=== PATIENT | male | born 1970 | race Asian ===

== ENCOUNTER 2020-04-04 08:00 | Outpatient (REF) | payer OTHER, SELFPAY ==
[2020-04-04 13:48] LABS: Calculated LDL 121 mg/dL (<100); Cholesterol 187 mg/dL (<200); Glucose 103 mg/dL (74-106); HDL Cholesterol 50 mg/dL (40-60); Triglyceride 80 mg/dL (<150)
[2020-04-08 10:10] LABS: Hepatitis C Ab w Rflx HCV PCR Negative (Negative)
== END 2020-04-04 08:20 ==
LOC: NCHCN 08:00
PROVIDERS: PCP Family Medicine; Visit Provider Family Medicine
DX: Z13.220 Encounter for screening for lipoid disorders (principal); Z13.1 Encounter for screening for diabetes mellitus; Z11.59 Encounter for screening for other viral diseases
CPT/HCPCS: 80061; 82947; 86803

== ENCOUNTER 2020-06-08 19:46 | Emergency (ER) | payer OTHER, SELFPAY ==
[2020-06-08 19:53] VITALS: BP 168/86; PULSE 87; RESP 16; TEMP 36.5; O2SAT 99
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
[2020-06-08] MEDS: Ondansetron O.D.T. 4 MG TABEF, 3 TABS/BTL PO (20:20)
[2020-06-08] MEDS: Acetaminophen 500 MG TAB 1000 MG PO (20:20)
== END 2020-06-08 20:30 | disposition home or self-care (01) ==
PROVIDERS: Emergency Provider Emergency Medicine; PCP Family Medicine
DX: S09.8XXA Other specified injuries of head, initial encounter (principal); V89.2XXA Person injured in unspecified motor-vehicle accident, traffic, initial encounter; R11.0 Nausea
CPT/HCPCS: 99283

== ENCOUNTER 2021-06-04 02:25 | Outpatient (CLI) | payer OTHER, SELFPAY ==
[2021-06-04 11:33] LABS: Source Nasal/Nares
[2021-06-04 14:04] LABS: COVID-19 PCR Negative (Negative)
== END 2021-06-04 02:26 | disposition home or self-care (01) ==
PROVIDERS: PCP Family Medicine; Visit Provider Surgery
DX: Z01.818 Encounter for other preprocedural examination (principal); Z20.822 Contact with and (suspected) exposure to COVID-19
CPT/HCPCS: 87635

== ENCOUNTER 2021-06-06 09:55 | Day surgery (SDC) | payer OTHER, SELFPAY ==
--- NOTE | 2021-06-05 11:51 | W.COLOREPORT ---
Colonoscopy Report Date of procedure: 06/06/21 Pre-op diagnosis general: CRC screen Post-op diagnosis procedure note: other (A. polyp) Surgeon: Brittany Chinchilla Anesthesia Type: General:No Airway Estimated blood loss (mL): 1 Complications: None Disposition: same day Prep: Miralax/Dulcolax Retraction Time: 11 Procedure Description: After informed consent was obtained the patient was taken to the procedure room and placed in a left decubitous position. Monitors were applied and a time out was done. The patients name, date of , procedure, allergies to medications and metal in their body was reviewed. The patient was then sedated. Once sedated and comfortable a rectal exam was done. External exam was normal. Internal exam revealed a normal sphincter tone and no palpable masses. The scope was then introduced and retrofelexed. No internal hemorrhoids were identified. The scope was then advanced to the cecum withoutdifficulty. The TI and appendiceal orifice were identified. The prep was be BPS?3 in all segments for a total score of 9. The scope was then slowly retracted over 11minutes back into the rectum. He has a flat 0.75 cm polyp at 80 cm. This is removed with multiple bites with cold biopsy forcep. All specimen is retrieved and no bleeding is noted. There is no diverticula or AVMs noted. The mucosa appears pink and healthy with normal vasculature. Was removed and the patient was woken up and taken back to Same day surgery in stable condition. The patient tolerated the procedure well and there were no immediate complications. Follow up: The patient should follow up in 7 years, path pd, unless they develop changes in bowel habits or other new gastrointestinal complaints.
--- NOTE | 2021-06-05 11:52 | PDOC.DSDIS_ITS ---
Discharge Plan Disposition Patient Disposition: HOME Condition: Good Discharge Details Reason For Visit: colon scope Attending Provider: Brittany Chinchilla Primary Care Provider: Josh Hernandez Home Meds and New Rx's Prescriptions: Continued fluoxetine 40 mg capsule 40 mg PO DAILY 0RF All Day Allergy (cetirizine) 10 mg capsule 10 mg PO DAILY PRN0RF zolpidem 10 mg tablet See Rx Instructions PO QHS 0RF Rx Instructions: 1/2 to 1 tab QHS PO every day at bedtime; melatonin-lemon balm leaf extr 10-1 mg tablet 1 tab PO HS 0RF Discontinued bisacodyl [Dulcolax (bisacodyl)] 5 mg tablet,delayed release (DR/EC) 5 mg PO ONCE Qty: 4 0RF Rx Instructions: take per colonoscopy instructions polyethylene glycol 3350 17 gram/dose powder 238 g PO ONCE Qty: 238 0RF Rx Instructions: take per colonoscopy instructions Discharge Instructions Additional Instructions: DSU Colonoscopy Post- Op Instructions Instructions for Everyone who is given Anesthesia: For your safety, please do the following for the next twenty-four (24) hours: *Do Not operate a motor vehicle (car, truck, motorcycle, etc.) *Do Not drink alcoholic beverages or use any recreational drugs for the first 24 hours or while taking pain medications. The medications in your body may have a reaction that can be dangerous. *Do Not make any important decisions or sign any important papers. Findings: x1 polyp Follow up:repeat 5-7yrs time- path pd. My office will send a letter in 2 to 3 weeks time detailing as to what type of polyp it is and when we want you to repeat the colonoscopy. 1. No lifting over 20 pounds or strenuous activity for the first 24 hours after your procedure. After 24 hours there are no restrictions on your activity but you may feel fatigued for a few days. 2. After you arrive home you may have a light meal and return to your normal diet as you can tolerate it without feeling sick to your stomach. 3. You may have a bloated, gaseous feeling in your belly (abdomen) after a colonoscopy. Passing gas and belching will help. Walking or lying down on your left side with your knees flexed may relieve the discomfort. Call the office at [phone] (Office) or [phone] (Hospital) right away i f you notice any of the following: a.Vomiting of blood or ?coffee ground stools?. b.Rectal bleeding 1Tbsp, blood clots or continuous bleeding. c.Severe belly (abdominal) pain. d.A hard distended belly (abdomen) and an inability to pass gas. 4. Please don?t expect to have a normal BM (bowel movement) for 2-3 days after your procedure. 5. If there are questions regarding the findings of your procedure, please contact your doctor 6. If you are unable to contact your doctor with a problem, contact the hospital at [phone]. 7. Continue all your regular medications unless directed otherwise. I understand the above instructions and have no questions. Signature of Patient or Adult Escort Name of Responsible Adult Escort Signature of Nurse Date/Time Stand Alone Forms: Anesthesia Discharge Inst., Carlos Alberto Miner ([facility]) Activity:: see above Diet:: see above Discharge Orders Discharge Orders: Discharge Order (Routine); Ordered 06/05/21 Ordered By: Brittany Chinchilla
[2021-06-06 10:26] VITALS: BP 107/93; PULSE 86; RESP 16; TEMP 36.6; O2SAT 97
[2021-06-06] MEDS: Lactated Ringers 1,000 ML 80 ML IV (10:51)
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
[2021-06-06 11:46] VITALS: BMI 22.0
--- NOTE | 2021-06-06 12:30 | BOWEL_PTH ---
PATIENT: King Dickerson LOC: [facility] U#:[id number] AGE/SX: 50/M ROOM: RE06/06/[address]: Brittany Chinchilla : 1970 BED: DIS: 06/06/2021 SPEC #: [id number] RECD: 06/06/21 17:13 STATUS: LUBA REQ #: [id number] ROBBIN: 06/06/21 12:[address]: Brittany Chinchilla DEPT: Surgical Specimen RECD BY: Rachel Linton ENTERED: 06/06/21 17:13 SP TYPE: Bowel OTHR DR: Josh Hernandez Tissues: 1 - BIOPSY BOWEL Procedures: GROSS AND MICRO LEVEL 4 Comments: [id number]
[2021-06-06 12:50] VITALS: BP 97/60; PULSE 61; RESP 16; TEMP 36.3; O2SAT 99
--- NOTE | 2021-06-06 12:51 | W.ANESPOSTOP ---
Postoperative Evaluation Date, Time and Location Date Performed: 06/06/21 Time Performed: 12:51 Patient Location: Day Surgery Unit Vital Signs Most Recent Imported Vital Signs: Most Recent Vital Signs Temp Pulse Resp BP Pulse Ox 36.6 C 86 16 107/93 H 97 06/06/21 10:26 06/06/21 10:06/06/21 10:06/06/21 10:06/06/21 10:26 Most Recent Manually Entered Vital Signs: Adult Blood Pressure: 97/60 Heart Rate: 64 Respirations: 12 Oxygen Saturation (%): 97 Temperature (C): 36.3 C Pain Score (0-10 Scale): 0 Pain Score Most Recent Pain Score: Most Recent Pain Score Pain Level 0 06/06/21 10:26 Assessment Mental Status: Awake (Alert & Oriented to Patient Baseline) Airway and Respiratory Function: Patent airway with normal (patient baseline) respiratory exam Cardiovascular Function: Hemodynamically Stable Hydration Status: Adequately Hydrated Nausea & Vomiting: No Nausea or Vomiting Pain: Pt. Denies Any Pain Peripheral Nerve Block: Patient did not receive a nerve block
[2021-06-06 12:52] VITALS: BP 97/60; PULSE 64; RESP 12; TEMPC 36.3; O2SAT 97
[2021-06-06 13:17] VITALS: BP 111/74; PULSE 67; RESP 16; TEMP 36.6; O2SAT 100
== END 2021-06-06 13:55 | disposition home or self-care (01) ==
LOC: SUR 09:56
PROVIDERS: PCP Family Medicine; Visit Provider Surgery
PROC: 0DJD8ZZ Inspection of Lower Intestinal Tract, Via Natural or Artificial Opening Endoscopic (ICD-10-PCS; CPT 45378; principal; 2021-06-06 11:00)
DX: Z12.11 Encounter for screening for malignant neoplasm of colon (principal); K63.5 Polyp of colon; R73.01 Impaired fasting glucose
CPT/HCPCS: 45380; 88305; J2001

== ENCOUNTER 2022-09-15 16:06 | Outpatient (REF) | payer OTHER, SELFPAY ==
[2022-09-15 19:47] LABS: Abs Immature Grans 0.02 10^3/uL (0.0-0.06); Absolute Basophil Count 0.02 10^3/uL (0.0-0.2); Absolute Eosinophil Count 0.27 10^3/uL (0.0-0.7); Absolute Lymphocyte Count 1.78 10^3/uL (1.2-3.4); Absolute Monocyte Count 0.37 10^3/uL (0.1-0.8); Absolute Neutrophil Count 4.02 10^3/uL (1.2-6.7); Basophils % 0.3; Eosinophils % 4.2; HCT 46.3 % (40.0-50.0); HGB 15.4 g/dL (13.5-17.5); Immature Grans % 0.3; Lymphocytes % 27.5; MCH 30.2 pg (27.0-33.0); MCHC 33.3 % (32.0-36.0); MCV 91 fL (80-95); MPV 11.3 fL (8.0-11.0); Monocytes % 5.7; Platelet Count 191 10^3/uL (130-400); RDW 12.3 % (11.8-14.1); RDW-SD 41.1 fL; WBC 6.48 10^3/uL (4.4-10.8)
[2022-09-15 19:49] LABS: ESR 1 mm/hr (0-20)
[2022-09-15 20:17] LABS: ALT 26 U/L (16-63); AST 13 U/L (15-37); Albumin 3.9 g/dL (3.4-5.0); Alkaline Phosphatase 89 U/L (46-116); Anion Gap 9.8 mmol/L (3-11); BUN 16 mg/dL (7-18); Bilirubin, Total 0.3 mg/dL (0.2-1.0); CO2 26.2 mmol/L (21.0-32.0); CREATININE 0.9 mg/dL (0.70-1.30); Calcium 8.7 mg/dL (8.5-10.1); Chloride 106 mmol/L (98-107); Glucose 104 mg/dL (74-106); Potassium 4.2 mmol/L (3.5-5.1); Sodium 142 mmol/L (136-145); Total Protein 6.9 g/dL (6.4-8.2)
[2022-09-17 10:39] LABS: HIV-1/2 Ag & Ab Screen Negative (Negative)
== END 2022-09-15 16:07 | disposition home or self-care (01) ==
LOC: NCHCN 16:06
PROVIDERS: PCP Family Medicine; Visit Provider Family Medicine
DX: C81.90 Hodgkin lymphoma, unspecified, unspecified site (principal); Z00.00 Encounter for general adult medical examination without abnormal findings; R61 Generalized hyperhidrosis
CPT/HCPCS: 80053; 85652; 87389; 85025

== ENCOUNTER → 2022-11-12 01:43 | Outpatient (CLI) | payer OTHER, SELFPAY ==
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
== END ==
PROVIDERS: PCP Family Medicine; Visit Provider Family Medicine
DX: C81.90 Hodgkin lymphoma, unspecified, unspecified site (principal); R61 Generalized hyperhidrosis
CPT/HCPCS: 71046

== ENCOUNTER 2024-01-24 10:57 | Outpatient (REF) | payer OTHER, SELFPAY ==
--- OUTSIDE RECORDS SUMMARY | 2024-01-24 11:01 | XMS_ITS | Clinical Summary ---
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 Depression 10/08/2011 Social History Tobacco Use Types Packs/Day Years Used Date Smoking Tobacco: Every Day Cigarettes Smokeless Tobacco: Never Alcohol Use Standard Drinks/Week Comments Yes 1.7 (1 standard drink = 0.6 oz p ure alcohol) Sex and Gender Information Value Date Recorded Sex Assigned at Not on file Gender Identity Not on file Sexual Orientation Not on file Last Filed Vital Signs Vital Sign Reading Time Taken Comments Blood Pressure 160/78 12/14/2015 1:09 AM EDT Pulse 68 12/14/2015 1:09 AM EDT Temperature 36.7 ??C (98.1 ??F) 12/14/2015 1:09 AM ED T Respiratory Rate 18 12/14/2015 1:09 AM EDT Oxygen Saturation 99% 12/14/2015 1:09 AM EDT Inhaled Oxygen Concentration - - Weight 61.2 kg (135 lb) 12/13/2015 8:56 PM EDT Height 175.9 cm (5' 9.25) 09/29/2012 1:51 PM ED T Body Mass Index 19.79 09/29/2012 1:51 PM EDT Plan of Treatment Health Maintenance Due Date Last Done Comments CT Colonography 1970 Colonoscopy 1970 Colorectal Cancer Screening 1970 FIT DNA 1970 FIT 1970 Sigmoidoscopy (10 year) with FIT yearly 1970 Sigmoidoscopy 1970 Hepatitis C Screening 1988 Lipid Screening 1988 Hepatitis B vaccine (0-59 yrs) (1) 1989 Tetanus/Diphtheria/Pertussis Vaccines (1 - Tdap) 11/12 Zoster vaccine (1 of 2) 2020 Covid-19 Vaccine (1 - season) 2023 Influenza (Flu) vaccine (1 o f 1 - Influenza standard series) 11/21/2023 HIV screen Completed 10/16/2011 Procedures Procedure Name Priority Date/Time Associated Diagnosis Comments HIV SCREEN, 4TH GENERATION [place] [place] Routine 10/16/2011 11:08 AM EDT Hodgkin disease from Last 3 Months or Most Recently Relevant to Health Maintenance Results * HIV (10/16/2011 11:08 AM EDT) HIV 1/2 Ab Negative PHILIPPE CAICEDO Blood specimen (specimen) 10/16/2011 11:08 AM EDT 10/16/2011 11:10 AM EDT Narrative Resulting Agency Comment Spec In Lab Stevie Domingo MD CHEMISTRY ORDERABLES [facility] from Last 3 Months or Most Recently Relevant to Health Maintenance Care Teams Lithographer Apprentice Relationship Specialty Start Date End Date Unknown None PCP - General 03/22/15
--- OUTSIDE RECORDS SUMMARY | 2024-01-24 11:01 | XMS_ITS ---
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 Past Plans No past plan information found. Radiation Treatments * No radiation treatments are documented for this patient in [facility]. Treatments may have been administered in another system. Lifetime Dose Tracking * Chemical Lifetime Dose Automatic Entry Manual Entr y doxorubicin 200.58 mg/m2 (352 mg) 200.58 mg/m2 (352 m g) 0 mg/m2 (0 mg) bleomycin 126 Units 126 Units 0 Units
--- OUTSIDE RECORDS SUMMARY | 2024-01-24 11:01 | XMS_ITS | Encounter Summary ---
Author Organization [facility] [place] [address] Care Team Providers Care Cigarette Tipper Name Role Phone Unknown Primary Care Provider Unavailabl e Reason for Referral * Psychiatric (Routine) - Closed Specialty Diagnoses / Procedures Referred By Contac t Referred To Contact Psychiatry Diagnoses Depression, unspecified depression type Isabella Recio MD [facility] EMER[place]ENC[place] [address] [facility] [place] [address] Referral ID Status Reason Start Date Expiration Date V isits Requested Visits Authorized [id number] Closed Consult, Test & Treat 12/14/2015 12/13/2016 1 1 Reason for Visit * Reason Comments Psychiatric Evaluation Encounter Details Date Type Department Care Team (Late st Contact Info) Description 12/13/2015 9:24 PM EDT - 12/14/2015 1:10 AM EDT [place] [address] Isabella Recio MD [facility] EMER[place]ENC[place] [address] Depression, unspecified depression type Discharge Disposition: Home Social History Tobacco Use Types Packs/Day Years Used Date Smoking Tobacco: Every Day Cigarettes Smokeless Tobacco: Never Alcohol Use Standard Drinks/Week Comments Yes 1.7 (1 standard drink = 0.6 oz p ure alcohol) Sex and Gender Information Value Date Recorded Sex Assigned at Not on file Gender Identity Not on file Sexual Orientation Not on file documented as of this encounter Last Filed Vital Signs Vital Sign Reading Time Taken Comments Blood Pressure 160/78 12/14/2015 1:09 AM EDT Pulse 68 12/14/2015 1:09 AM EDT Temperature 36.7 ??C (98.1 ??F) 12/14/2015 1:09 AM ED T Respiratory Rate 18 12/14/2015 1:09 AM EDT Oxygen Saturation 99% 12/14/2015 1:09 AM EDT Inhaled Oxygen Concentration - - Weight 61.2 kg (135 lb) 12/13/2015 8:56 PM EDT Height - - Body Mass Index 19.79 09/29/2012 1:51 PM EDT documented in this encounter Discharge Instructions * Discharge Instructions* Iman Welch MD - 12/14/2015 1:00 AM EDT PSYCHIATRIC PATIENT DISCHARGE INSTRUCTIONS Call your doctor, your local mental health center, or your local emergency room if you develop worsening symptoms of depression, anxiety, thoughts of harming yourself, thoughts of harming others, or any other decline in your overall condition. For Psychiatric/Counseling Services: [facility] Emergency Services: [facility] [phone] [facility] Emergency Services: [phone] [facility] Central Access Services: [phone] [facility] Main Line: [phone] [email or web address] documented in this encounter ED Notes * Isabella Recio MD - 12/14/2015 1:10 AM EDT Chief Complaint Patient presents with ??? Psychiatric Evaluation HPI King Dickerson is a 45 y.o. male with PPHx of depression and medical history of Hodgkin's Lymphomapresenting for increasing depression over the past 4-5 months. He describes feelings of depression,feeling overwhelmed, anxiety, and cannot describe the last time he felt happy. Patient endorses worsening symptoms of poor sleep, loss of interest, decreased appetite, and infrequent (maybe monthly) thoughts about suicide with no plan or intent. Patient denies any physical symptoms at this time.He is currently in remission from his Lymphoma No Known Allergies Review of Systems A complete 12 point review systems was completed and was negative except as documented in the HPI Physical Exam Constitutional: He is oriented to person, place, and time. He appears well- developed and well-nourished. No distress. HENT: Head: Normocephalic and atraumatic. Eyes: EOM are normal. Pupils are equal, round, and reactive to light. Neck: Normal range of motion. No thyromegaly present. Cardiovascular: Normal rate, regular rhythm and normal heart sounds. Pulmonary/Chest: Effort normal. No respiratory distress. Abdominal: Soft. There is no tenderness. Musculoskeletal: Normal range of motion. He exhibits no edema. Neurological: He is alert and oriented to person, place, and time. Skin: Skin is warm and dry. No rash noted. He is not diaphoretic. Psychiatric: Affect Tearful Procedures MDM ED Course: No evidence of acute medical illness was found on today's clinical exam.Patient was referred to psychiatry For feelings of suicidality. Isabella Recio MD 01/07/16 1527 documented in this encounter Miscellaneous Notes * ED Triage - Marky Yousif RN - 12/13/2015 9:01 PM EDT I am not mentally strong right now. +Depression. Suicide has crossed my mind. No plan. Denies HI. Here with brother. Tearful. Contracts for safety while here. documented in this encounter Plan of Treatment Scheduled Referrals Name Type Priority Associated Diagnoses Orde r Schedule Referral to Psychiatry Outpatient Referral Routine Depression, unspecified depression type Ordered: 12/14/2015 documented as of this encounter Procedures Procedure Name Priority Date/Time Associated Diagnosis Comments URINE HOLD STAT 12/13/2015 11:30 PM EDT URINE HOLD STAT 12/13/2015 11:30 PM EDT HEMOGRAM STAT 12/13/2015 11:30 PM EDT DIFFERENTIAL, AUTOMATED STAT 12/13/2015 11:30 PM EDT BLUE TUBE HOLD STAT 12/13/2015 11:30 PM EDT RAPID DRUG SCREEN W/O CONFIRMATION, URINE STAT 12/13/2015 11:30 PM EDT CBC (WITH DIFF) STAT 12/13/2015 11:30 PM EDT TSH STAT 12/13/2015 11:30 PM EDT ETHANOL LEVEL STAT 12/13/2015 11:30 PM EDT ACETAMINOPHEN LEVEL STAT 12/13/2015 1 1:30 PM EDT SALICYLATE STAT 12/13/2015 11:30 PM EDT HEPATIC FUNCTION PANEL STAT 6 11:30 PM EDT BASIC METABOLIC PANEL STAT 12/13/2015 11:30 PM EDT documented in this encounter Results * Blue Tube HOLD (12/13/2015 11:30 PM EDT) [facility] Blue Hold Sample in lab. [facility] Blood specimen (specimen) Venous Draw / Unknown 12/13/2015 11:30 PM EDT 12/13/2015 11:40 PM EDT Isabella Recio MD HEMATOLOGY ORDERABLE S [facility] [place] [address] * Differential, Automated (12/13/2015 11:30 PM EDT) [facility] Neutrophil % 57.7 % [facility] Neutrophil Absolute 4.86 1.70 - 6.10 x10(3)/[facility] LAB[facility] Lymph % 31.1 % [facility] Lymphocytes Abs 2.6 0.9 - 3.2 x10(3)/[facility] Monocyte % 6.0 % [facility] Monocyte Abs 0.5 0.3 - 0.9 x10(3)/[facility] Eos % 4.6 % [facility] Eosinophils Abs 0.4 0.0 - 0.4 x10(3)/[facility] Basophil % 0.4 % [facility] Baso Absolute 0.0 0.0 - 0.1 x10(3)/[facility] LABOR[facility]ORY Immature Gran % 0.20 % [facility] Comment: Immature granulocytes(IG's)percentage and absolute count will include metamyelocytes, myelocytes, and promyelocytes. Blood smears from CBCs yielding IG's will be scanned manually for concordance. If this scan disagrees with the automated IG or if promyelocytes are noted, a manual differential will be performed. Immature Gran Absolute 0.02 0.00 - 0.04 x10(3)/[facility] Blood specimen (specimen) 12/13/2015 11:30 PM EDT 12/13/2015 11:39 PM EDT Narrative Resulting Agency Comment Spec In Lab Isabella Recio MD HEMATOLOGY ORDERABLE S Performing Organization Address City/State/[facility] Co de Phone Number [facility] [place] [address] * (ABNORMAL) Hemogram (12/13/2015 11:30 PM EDT) White Blood Cell 8.4 4.0 - 9.5 x10(3)/[facility] LABORATORY Red Blood Cell 5.36 4.58 - 5.54 x10(6)/[facility] Hemoglobin 16.0 13.7 - 16.5 gm/dL [facility] Hematocrit 48.7(H) 40.5 - 48.5 % [facility] Mean Cell Volume 90.9 82.9 - 93.1 fL [facility] Mean Cell Hemoglobin 29.9 27.5 - 32.1 pg [facility] Mean Cell Hemoglobin Concentration 32.9 32.0 - 35.7 gm/dL [facility] Platelet 207 145 - 357 x10(3)/mc L [facility] RDW Standard Deviation 41.0 36.0 - 45.0 fL [facility] RDW coefficient of variation 12.4 11.4 - 13.8 % [facility] Mean Platelet Volume 11.0 7.6 - 12.9 fL [facility] NRBC% auto 0.0 % [facility] NRBC Absolute 0.000 0.000 - 0.000 x10(3)/mc L [facility] Blood specimen (specimen) 12/13/2015 11:30 PM EDT 12/13/2015 11:39 PM EDT Narrative Resulting Agency Comment Spec In Lab Isabella Recio MD HEMATOLOGY ORDERABLE S [facility] [place] [address] * Urine Hold (12/13/2015 11:30 PM EDT) Hold, Urine Sample in lab. [facility] Urine specimen (specimen) Urine / Unknown 12/13/2015 11:30 PM EDT 12/13/2015 11:38 PM EDT Isabella Recio MD URINE ORDERABLES Performing Organization Address City/[facility]/ZIP Co de Phone Number [facility] [place] [address] * Urine Hold (12/13/2015 11:30 PM EDT) Hold, Urine Sample in lab. [facility] Urine specimen (specimen) Urine / Unknown 12/13/2015 11:30 PM EDT 12/13/2015 11:37 PM EDT Isabella Recio MD URINE ORDERABLES Performing Organization Address [facility] Co de Phone Number [facility] [place] [address] * (ABNORMAL) Acetaminophen level (12/13/2015 11:30 PM EDT) Acetamin Lvl <5(L) 10 - 30 mg/L [facility] Comment: Result rechecked./llu Levels >150 mg/L at 4 hours post ingestion or >75 mg/L at 8 hours post ingestion are often an indication for N-Acetylcysteine. Blood specimen (specimen) 12/13/2015 11:30 PM EDT 12/13/2015 11:39 PM EDT Narrative Resulting Agency Comment Spec In Lab Isabella Recio MD CHEMISTRY ORDERABLES Performing Organization Address [facility] Co de Phone Number [facility] [place] [address] * Salicylate (12/13/2015 11:30 PM EDT) Salicylate <20 mg/L [facility] Comment: Result rechecked./llu Therapeutic Range: ??< 200 mg/L Arthritic Therapy: ??150-300 mg/L Toxic: ?> 350 mg/L ??Concentrations > 500 mg/L may be an indication for alkalinization of urine. Concentrations > 800 mg/L are often an indication for hemodialysis. Blood specimen (specimen) 12/13/2015 11:30 PM EDT 12/13/2015 11:39 PM EDT Narrative Resulting Agency Comment Spec In Lab Isabella Recio MD CHEMISTRY ORDERABLES Performing Organization Address [facility] Co de Phone Number [facility] [place] [address] * Rapid Drug Screen, Urine (12/13/2015 11:30 PM EDT) [facility] Marijuana Metabolites Screen None Detected None Detected [facility] Comment: The marijuana metabolites screen detects the THC Metabolite (67-ewc-0-carboxy-? 9 -THC) at concentrations >50 ng/mL. Qualitative Drug screens are reported as ? None Detected? or ? Presumptive Positive? as the results are not routinely confirmed by highly-specific methods. As with any screen occasional false positive results from cross-reacting substances can occur. Not for Medico-Legal Purposes. Phencyclidine Screen, Urine None Detected None Detected [facility] Comment: The phencyclidine screen detects phencyclidine at concentrations >25 ng/mL. Qualitative Drug screens are reported as ? None Detected? or ? Presumptive Positive? as the results are not routinely confirmed by highly-specific methods. As with any screen occasional false positive results from cross-reacting substances can occur. Not for Medico-Legal Purposes. [facility] Cocaine Metabolites Screen None Detected None Detected [facility] Comment: The cocaine metabolites screen detects benzoylecgonine (Cocaine Metabolite) at concentrations >150 ng/mL. Qualitative Drug screens are reported as ? None Detected? or ? Presumptive Positive? as the results are not routinely confirmed by highly-specific methods. As with any screen occasional false positive results from cross-reacting substances can occur. Not for Medico-Legal Purposes. Methamphetamines Screen, Urine None Detected None Detected [facility] Comment: The methamphetamine screen detects d-methamphetamine at concentrations >500 ng/mL. Qualitative Drug screens are reported as ? None Detected? or ? Presumptive Positive? as the results are not routinely confirmed by highly-specific methods. As with any screen occasional false positive results from cross-reacting substances can occur. Not for Medico-Legal Purposes. [facility] Opiates Screen None Detected None Detected [facility] Comment: The opiates screen detects opiates at a concentration >100 ng/mL and oxymorphone >250 ng/mL. Qualitative Drug screens are reported as ? None Detected? or ? Presumptive Positive? as the results are not routinely confirmed by highly-specific methods. As with any screen occasional false positive results from cross-reacting substances can occur. Not for Medico-Legal Purposes. [facility] Amphetamines Screen None Detected None Detected [facility] Comment: The amphetamine screen detects d-amphetamine at concentrations >500 ng/mL. Qualitative Drug screens are reported as ? None Detected? or ? Presumptive Positive? as the results are not routinely confirmed by highly-specific methods. As with any screen occasional false positive results from cross-reacting substances can occur. Not for Medico-Legal Purposes. [facility] Benzodiazepines Screen None Detected None Detected [facility] Comment: The benzodiazepines screen detects benzodiazepines at concentrations >150 ng/mL. Not all benzodiazepines cross-react equally with antibody used in this screen. Due to the low dosage of clonazepam, false negatives may be obtained due to low concentration of clonazepam metabolites. Qualitative Drug screens are reported as ? None Detected? or ? Presumptive Positive? as the results are not routinely confirmed by highly-specific methods. As with any screen occasional false positive results from cross-reacting substances can occur. Not for Medico-Legal Purposes. [facility] Tricyclics Screen None Detected None Detected [facility] Comment: The tricyclics screen detects tricyclic antidepressants at concentrations >300 ng/mL. Not all tricyclics cross-react equally with the antibody used in this screen. Qualitative Drug screens are reported as ? None Detected? or ? Presumptive Positive? as the results are not routinely confirmed by highly-specific methods. As with any screen occasional false positive results from cross-reacting substances can occur. Not for Medico-Legal Purposes. [facility] Methadone Screen None Detected None Detected [facility] Comment: The methadone screen detects methadone at concentrations >200 ng/mL. Qualitative Drug screens are reported as ? None Detected? or ? Presumptive Positive? as the results are not routinely confirmed by highly-specific methods. As with any screen occasional false positive results from cross-reacting substances can occur. Not for Medico-Legal Purposes. [facility] Barbiturates Screen None Detected None Detected [facility] Comment: The barbiturates screen detects barbiturate at concentrations >200 ng/mL. Note: Not all barbiturates cross-react equally with antibody used in this screen. Qualitative Drug screens are reported as ? None Detected? or ? Presumptive Positive? as the results are not routinely confirmed by highly-specific methods. As with any screen occasional false positive results from cross-reacting substances can occur. Not for Medico-Legal Purposes. [facility] Oxycodone Srceen None Detected None Detected [facility] Comment: The oxycodone screen detects oxycodone at concentrations >100 ng/mL and oxymorphone >250 ng/ml. Qualitative Drug screens are reported as ? None Detected? or ? Presumptive Positive? as the results are not routinely confirmed by highly-specific methods. As with any screen occasional false positive results from cross-reacting substances can occur. Not for Medico-Legal Purposes. Propoxyphene Screen, Urine None Detected None Detected [facility] Comment: The propoxyphene screen detects propoxyphene at concentrations >300 ng/mL. Qualitative Drug screens are reported as ? None Detected? or ? Presumptive Positive? as the results are not routinely confirmed by highly-specific methods. As with any screen occasional false positive results from cross-reacting substances can occur. Not for Medico-Legal Purposes. [facility] Buprenorphine Screen None Detected None Detected [facility] Comment: The buprenorphine screen detects buprenorphine at concentrations >10 ng/mL. Qualitative Drug screens are reported as ? None Detected? or ? Presumptive Positive? as the results are not routinely confirmed by highly-specific methods. As with any screen occasional false positive results from cross-reacting substances can occur. Not for Medico-Legal Purposes. [facility] Adulterants Screen None Detected None Detected [facility] Comment: No adulteration or dilution of this urine sample was detected. All urine samples submitted for urine drugs of abuse analysis are tested for Creatinine and pH and for the presence of oxidants, nitrites, chromate and aldehydes (glutaraldehyde). Urine specimen (specimen) 12/13/2015 11:30 PM EDT 12/13/2015 11:37 PM EDT Narrative Resulting Agency Comment Spec In Lab Isabella Recio MD URINE ORDERABLES [facility] [place] [address] * Ethanol Level (12/13/2015 11:30 PM EDT) Ethanol <100 mg/L [facility] Comment: Greater than 800 mg/L (0.08%) should be considered intoxicated. 3400 to 4500 mg/L (0.34 - 0.45%) is considered severe intoxication. Greater than 5500 mg/L (0.55%) is usually fatal. Blood specimen (specimen) 12/13/2015 11:30 PM EDT 12/13/2015 11:39 PM EDT Narrative Resulting Agency Comment Spec In Lab Isabella Recio MD CHEMISTRY ORDERABLES Performing Organization Address [facility] Co de Phone Number [facility] [place] [address] * TSH (12/13/2015 11:30 PM EDT) Thyroid Stimulating Hormone 1.20 0.27 - 4.20 mcIU/mL [facility] Blood specimen (specimen) 12/13/2015 11:30 PM EDT 12/13/2015 11:39 PM EDT Narrative Resulting Agency Comment Spec In Lab Isabella Recio MD CHEMISTRY ORDERABLES Performing Organization Address [facility] Co de Phone Number [facility] [place] [address] * Hepatic Function Panel (12/13/2015 11:30 PM EDT) Protein, Total 7.0 6.1 - 8.0 gm/dL [facility] Albumin 4.9 3.2 - 5.2 gm/dL [facility] Aspartate Aminotransferase 13 0 - 39 unit/L [facility] Alanine Aminotransferase 8 0 - 55 unit/L [facility] Alkaline Phosphatase 76 40 - 120 unit/L [facility] Bilirubin, Total 0.4 0.2 - 1.3 mg/dL [facility] Bilirubin, Direct 0.1 0.0 - 0.3 mg/dL [facility] Blood specimen (specimen) 12/13/2015 11:30 PM EDT 12/13/2015 11:39 PM EDT Narrative Resulting Agency Comment Spec In Lab Isabella Recio MD CHEMISTRY ORDERABLES [facility] [place] [address] * (ABNORMAL) Basic Metabolic Panel (non-fasting) (12/13/2015 11:30 PM EDT) Glucose 93 65 - 199 mg/dL [facility] Comment:Diabetes: >=200 mg/d L plus symptoms Blood Urea Nitrogen 8(L) 10 - 20 mg/dL [facility] Creatinine 0.81 0.80 - 1.50 mg/dL [facility] Comment: Please note that the pediatric reference intervals supplied above were not validated at [facility]. Results from pediatric patients should be interpreted in conjunction to the patient's age, height and muscle mass. Sodium 144 135 - 145 mmol/L [facility] Potassium 4.3 3.5 - 5.0 mmol/L [facility] Comment: Please note: ??Patients with WBC >100,000 may have falsely elevated Potassium levels. ??For accurate Potassium quantification in these patients send serum separator tube (gold top) for subsequent determinations. ??Contact the Clinical Chemistry Laboratory if there are any questions. Chloride 102 98 - 107 mmol/L [facility] Carbon Dioxide 28 22 - 31 mmol/L [facility] Anion Gap 14 5 - 15 mmol/L [facility] Calcium 9.4 8.5 - 10.5 mg/dL [facility] Est Glomerular Filtration Rate >60 >=60 [facility] Comment: This estimated GFR (eGFR) value was calculated using the MDRD equation which has been validated on patients between the ages of 18 and 70. The MDRD should not be used to assess kidney function in patients < 18 years of age or in patients with extremes of body mass, or in patients with acute kidney failure. This value should be multiplied by 1.2 for patients. For further information please copy and paste the following links into your internet browser. [email or web address] Blood specimen (specimen) 12/13/2015 11:30 PM EDT 12/13/2015 11:39 PM EDT Narrative Resulting Agency Comment Spec In Lab Isabella Recio MD CHEMISTRY ORDERABLES [facility] [place] [address] documented in this encounter Visit Diagnoses Diagnosis Depression, unspecified depression type documented in this encounter Care Teams Cigarette Tipper Relationship Specialty Start Date End Date Unknown None PCP - General 03/22/15 documented as of this encounter
--- OUTSIDE RECORDS SUMMARY | 2024-01-24 11:02 | XMS_ITS | Encounter Summary ---
Author Organization [facility] [place] [address] Care Team Providers Care Stave Block Splitter Name Role Phone Reginald Nieto APRN Primary Care Provide r Reason for Visit * Reason Comments Injections Neulasta Injection Encounter Details Date Type Department Care Team (Late st Contact Info) Description 12/17/2011 3:00 PM EDT Office Visit Hematology Oncology at [address] [phone] CLINIC, [facility] HEM/ONC Jay Kaur MD [address] [place] [phone] Hodgkin's disease (Primary Dx) Discharge Disposition: Home Social History Tobacco Use [...] Sign Reading Time Taken Comments Blood Pressure 117/73 12/17/2011 10:43 AM EDT Pulse 93 12/17/2011 10:43 AM EDT Temperature 37 ??C (98.6 ??F) 12/17/2011 10:43 AM EDT Respiratory Rate 16 12/17/2011 10:43 AM EDT Oxygen Saturation 98% 12/17/2011 10:43 AM EDT Inhaled Oxygen Concentration - - Weight - - Height - - Body Mass Index - - documented in this encounter Progress Notes * Sherry Collazo RN - 12/17/2011 10:49 AM EDT Treatment Started: 1040 Treatment Ended: Diagnosis: Hodgkin's Disease Treatment: Neulasta Injection Assessment: Patient comes in today for neulasta injection. Patient reports a low-grade fever last night with chills. No fevers today. Patient reports nausea this morning, no vomiting. States that he took a Compazine this morning and that did help some. He does have mild nausea still. He reports that he does have Lorazepam at home also, he states that he normally takes that at night. I instructed him that he could take it every 6 hours as needed. He verbalized understanding and states that he will take a lorazepam when he gets home. Patient also reported that he felt some chest pain last night. It just felt tight. No other symptoms associated with this. No complaints of this pain this morning. Will report this to Dr. Gonzalez. Plan: Patient will try Lorazepam for the nausea. He was reminded to call with any questions/concerns. documented in this encounter Plan of Treatment Not on file documented as of this encounter Visit Diagnoses Diagnosis Hodgkin's disease- Primary Hodgkin's disease, unspecified documented in this encounter Administered Medications Inactive Administered Medications - up to 3 most recent administrations Medication Order MAR Action Action Date Dose Rate Site pegfilgrastim (NEULASTA) injection 4 mg 4 mg, Subcutaneous, ONCE, 1 dose, On Veronica 12/17/11 at 1500, NOTE DOSE = 4 MG , Routine Given 12/17/2011 11:02 AM EDT 4 mg Righ t Arm documented in this encounter Care Teams Stave Block Splitter Relationship Specialty Start Date End Date Reginald Nieto APRN [address] [place] [address] PCP - General 09/30/11 10/05/13 documented as of this encounter
--- OUTSIDE RECORDS SUMMARY | 2024-01-24 11:02 | XMS_ITS | Encounter Summary ---
Author Organization [facility] [place] [address] Care Team Providers Care Photographer Apprentice Lithographic Name Role Phone Reginald Nieto APRN Primary Care Provide r Reason for Visit * Reason Comments Other neulasta injection Encounter Details Date Type Department Care Team (Late st Contact Info) Description 12/31/2011 2:00 PM EDT Office Visit Hematology Oncology at [address] [phone] CLINIC, DR [facility]EM/ONC Jay Kaur MD [address] [place] [address] Hodgkin's lymphoma (Primary Dx) Discharge Disposition: Home Social History [...] Sign Reading Time Taken Comments Blood Pressure 105/62 12/31/2011 10:30 AM EDT Pulse 87 12/31/2011 10:30 AM EDT Temperature 36.8 ??C (98.2 ??F) 12/31/2011 10:30 AM E DT Respiratory Rate - - Oxygen Saturation 99% 12/31/2011 10:30 AM EDT Inhaled Oxygen Concentration - - Weight - - Height - - Body Mass Index - - documented in this encounter Progress Notes * Yani Rogers RN - 12/31/2011 10:45 AM EDT Patient in for neulasta injection - Given R arm. Patient states he had a coughing fit this morning. Non-productive, lasted approximately 15 minutes, and patient reports he fell to the floor it was so severe. Dr. Gonzalez to be notified. documented in this encounter Plan of Treatment Not on file documented as of this encounter Visit Diagnoses Diagnosis Hodgkin's lymphoma- Primary Hodgkin's disease, unspecified documented in this encounter Administered Medications Inactive Administered Medications - up to 3 most recent administrations Medication Order MAR Action Action Date Dose Rate Site pegfilgrastim (NEULASTA) injection 4 mg 4 mg, Subcutaneous, ONCE, 1 dose, On Veronica 12/31/11 at 1400, NOTE DOSE = 4 MG , Routine Given 12/31/2011 10:30 AM EDT 4 mg documented in this encounter Care Teams Photographer Apprentice Lithographic Relationship Specialty Start Date End Date Reginald Nieto APRN [address] [place] [address] PCP - General 09/30/11 10/05/13 documented as of this encounter
--- OUTSIDE RECORDS SUMMARY | 2024-01-24 11:02 | XMS_ITS | Encounter Summary ---
Author Organization [facility] Address [facility] [place] [address] Care Team Providers Care Pick Up Operator Name Role Phone Reginald Nieto APRN Primary Care Provide r Encounter Details Date Type Department Care Team (Late st Contact Info) Description 01/18/2012 Orders Only Hematology Oncology at [address] [phone] Bro Tiwari MD [facility] DR HEMATOLOGY [place] [address] Social History Tobacco Use Types Packs/Day Years Used Date Smoking Tobacco: Every Day Cigarettes Smokeless Tobacco: Never Alcohol Use Standard Drinks/Week Comments Yes 1.7 (1 standard drink = 0.6 oz p ure alcohol) Sex and Gender Information Value Date Recorded Sex Assigned at Not on file Gender Identity Not on file Sexual Orientation Not on file documented as of this encounter Plan of Treatment Not on file documented as of this encounter Visit Diagnoses Not on filedocumented in this encounter Care Teams Pick Up Operator Relationship Specialty Start Date End Date Reginald Nieto APRN [address] [place] [address] PCP - General 09/30/11 10/05/13 documented as of this encounter
--- OUTSIDE RECORDS SUMMARY | 2024-01-24 11:02 | XMS_ITS | Encounter Summary ---
Author Organization [facility] [place] [address] Care Team Providers Care Nibbler Operator Name Role Phone Reginald Nieto APRN Primary Care Provide r Reason for Visit * Reason Onset Date Comments Follow-up 01/15/2012 Pt came from [facility] ER Encounter Details Date Type Department Care Team (Late st Contact Info) Description 01/15/2012 Telephone Hematology Oncology at [address] [phone] Lo Love RN Follow-up (Pt came from [facility] ER) Social History Tobacco Use Types Packs/Day Years Used Date Smoking Tobacco: Every Day Cigarettes Smokeless Tobacco: Never Alcohol Use Standard Drinks/Week Comments Yes 1.7 (1 standard drink = 0.6 oz p ure alcohol) Sex and Gender Information Value Date Recorded Sex Assigned at Not on file Gender Identity Not on file Sexual Orientation Not on file documented as of this encounter Miscellaneous Notes * Telephone Encounter - Lo Love RN - 01/15/2012 10:52 AM EDT Pt stopped by and stated he just came from [facility] ER due to burning chest pain last night. ER did CT scan and pt noted to have hiatal hernia. Pt put on 40 mg omeprazole, sucrulfate four times a day, and percocet. Reviewed information with Dr. Gonzalez, he agrees with plan and cancelled pt's CT scan that he wanted pt to get prior to next treatment. Pt agrees with plan. documented in this encounter Plan of Treatment Not on file documented as of this encounter Visit Diagnoses Not on filedocumented in this encounter Care Teams Nibbler Operator Relationship Specialty Start Date End Date Reginald Nieto APRN [address] [place] [address] PCP - General 09/30/11 10/05/13 documented as of this encounter
--- OUTSIDE RECORDS SUMMARY | 2024-01-24 11:02 | XMS_ITS | Encounter Summary ---
Author Organization [facility] [place] [address] Care Team Providers Care Freelance Data Entry Name Role Phone Reginald Nieto APRN Primary Care Provide r Encounter Details Date Type Department Care Team (Latest Contact Info) Description 09/26/2012 12:14 PM EDT - 09/26/2012 11:59 PM EDT Hospital [place] [phone] CLINIC, Jay Desai MD [address] [place] [address] [place], [place] [id number] Hodgkin's disease; Hodgkin lymphoma Discharge Disposition: Home Social History Tobacco Use [...] on file documented as of this encounter Medications at Time of Discharge Medication Sig Dispensed Refills Start Date End Date sildenafil (VIAGRA) 50 mg tabletIndications:Erect ile dysfunction Take 1 tablet by mouth as needed for Erectile Dysfunction. 8 tablet 11 06/08/2012 09/29/2012 LORazepam (ATIVAN) 1 mg tablet Take 1 tablet by mouth every 6 hours as needed for Anxiety. 30 tablet 4 12/14/2011 09/29/2012 documented as of this encounter Miscellaneous Notes * Miscellaneous - Provider, Scanning - 09/28/2012 8:42 AM EDT documented in this encounter Plan of Treatment Scheduled Orders Name Type Priority Associated Diagnoses Orde r Schedule CBC (with Diff) Lab Routine Hodgkin's disease 1 Occurrences starting 09/26/2012 Comprehensive metabolic panel (non-fasting) Lab Routine Hodgkin's disease 1 Occurrences starting 09/26/2012 Lactate Dehydrogenase Lab Routine Hodgkin's disease 1 Occurrences starting 09/26/2012 CBC (with Diff) Lab Routine Hodgkin lymphoma 1 Occurrences starting 09/26/2012 Comprehensive metabolic panel (non-fasting) Lab Routine Hodgkin lymphoma 1 Occurrences starting 09/26/2012 Lactate Dehydrogenase Lab Routine Hodgkin lymphoma 1 Occurrences starting 09/26/2012 Sedimentation rate Lab Routine Hodgkin lymphoma 1 Occurrences starting 09/26/2012 documented as of this encounter Procedures Procedure Name Priority Date/Time Associated Diagnosis Comments CT CHEST ABDOMEN PELVIS W CONTRAST (GENERIC) Routine 09/26/2012 2:54 PM EDT Hodgkin's disease, unspecified documented in this encounter Results * CT chest, abdomen, & pelvis with contrast (09/26/2012 2:54 PM EDT) Anatomical Region Laterality Modality Computed Tomogra phy 09/26/2012 2:54 PM EDT Narrative 09/26/2012 3:[address] Chest / Abdomen / Pelvis With Contrast Clinical History Bi-dimensional measures/Do not use RECIST criteria Lymphoma ?? s/p treatment ?? restaging Clinical trials patient Comparison September 26, 2012. Technique Contrast-enhanced CT scan of the chest, abdomen and pelvis following administration of oral and 110 mL Omnipaque 350 intravenous contrast. Findings Chest: ??No pulmonary nodules. ??No pleural nor pericardial effusions. ??No enlarged lymph nodes. ??No central pulmonary emboli. Abdomen: ??Hypodense lesion in the left liver lobe is unchanged. ??No suspicious liver lesions. ??Spleen, pancreas and gallbladder normal. ??Right and left kidneys and adrenal glands are normal. ??No enlarged gastrohepatic, retroperitoneal, mesenteric nor portacaval lymph nodes. ??No ascites. Pelvis: ??Loops of small and large bowel are normal in caliber. ??No free fluid. ?? Prominent seminal vesicles are stable. ??No enlarged lymph nodes. Review of osseous structures are unremarkable. Lesion #1 (left supraclavicular lymph node) ??; Series# ??; Image# ??; Maximum Diameter (mm) ??; {CR}Previous Scan: ??; 2 ??; 3 ??; 7 x 4 ??; {CR}Present Scan: ??; 2 ??; 3 ??; 7 x 4 ??; {CR} Impression Stable exam. Procedure Note Isabella Yu MD - 09/26/[address] Chest / Abdomen / Pelvis With Contrast Clinical History Bi-dimensional measures/Do not use RECIST criteria Lymphoma s/p treatment restaging Clinical trials patient Comparison September 26, 2012. Technique Contrast-enhanced CT scan of the chest, abdomen and pelvis following administration of oral and 110 mL Omnipaque 350 intravenous contrast. Findings Chest: No pulmonary nodules. No pleural nor pericardial effusions. No enlarged lymph nodes. No central pulmonary emboli. Abdomen: Hypodense lesion in the left liver lobe is unchanged. Nosuspicious liver lesions. Spleen, pancreas and gallbladder normal. Right and left kidneys and adrenal glands are normal. No enlarged gastrohepatic, retroperitoneal, mesenteric nor portacaval lymph nodes. No ascites. Pelvis: Loops of small and large bowel are normal in caliber. No freefluid. Prominent seminal vesicles are stable. No enlarged lymph nodes. Review of osseous structures are unremarkable. Lesion #1 (left supraclavicular lymph node) ; Series# ; Image# ;Maximum Diameter (mm) ; {CR}Previous Scan: ; 2 ; 3 ; 7 x 4 ; {CR}PresentScan: ; 2 ; 3 ; 7 x 4 ; {CR} Impression Stable exam. Jay Kaur MD IMG CT ORDERABLES documented in this encounter Visit Diagnoses Diagnosis Hodgkin's disease Hodgkin's disease, unspecified Hodgkin lymphoma Hodgkin's disease, unspecified documented in this encounter Administered Medications Inactive Administered Medications - up to 3 most recent administrations Medication Order MAR Action Action Date Dose Rate Site iohexol (OMNIPAQUE) 350 mg iodine/mL injection 17,500 mg 17,500 mg (50 mL), Oral, ONCE PRN, 1 dose, Starting on Wed09/26/12 at 1439, Until Wed09/26/12 at 1230, Per Protocol, Routine Given 09/26/2012 12:30 PM EDT 17,500 mg iohexol (OMNIPAQUE) 350 mg iodine/mL injection 38,500 mg 38,500 mg (110 mL), Intravenous, ONCE PRN, 1 dose, Starting on Wed09/26/12 at 1439, Until Wed09/26/12 at 1440, Per Protocol, Routine Given 09/26/2012 2:40 PM EDT 38,500 mg documented in this encounter Care Teams Freelance Data Entry Relationship Specialty Start Date End Date Reginald Nieto APRN [address] [place] [address] PCP - General 09/30/11 10/05/13 documented as of this encounter
--- OUTSIDE RECORDS SUMMARY | 2024-01-24 11:02 | XMS_ITS | Encounter Summary ---
Author Organization [facility] [place] [address] Care Team Providers Care Inserting Press Operator Name Role Phone Reginald Nieto APRN Primary Care Provide r Reason for Visit * Reason Comments Lymphoma Encounter Details Date Type Department Care Team (Late st Contact Info) Description 06/08/2012 1:00 PM EDT Follow-Up Hematology Oncology at [address] [phone] Jay Kaur MD [address] [place] [phone] Erectile dysfunction (Primary Dx); Hodgkin's disease Discharge Disposition: Home Social History Tobacco Use [...] Sign Reading Time Taken Comments Blood Pressure 118/74 06/08/2012 12:52 PM EDT Pulse 100 06/08/2012 12:52 PM EDT Temperature 37 ??C (98.6 ??F) 06/08/2012 12:52 PM EDT Respiratory Rate 16 06/08/2012 12:52 PM EDT Oxygen Saturation - - Inhaled Oxygen Concentration - - Weight 63.5 kg (140 lb) 06/08/2012 12:52 PM EDT Height 175.9 cm (5' 9.25) 06/08/2012 12:52 PM E DT Body Mass Index 20.52 06/08/2012 12:52 PM EDT documented in this encounter Progress Notes * Jay Kaur MD - 06/08/2012 1:51 PM EDT Problems: Classic Hodgkin's disease PET scan shows stage IIA disease. 36 x 25 mm node in the left neck +4 x 5mm node in the anterior mediastinum on the left side started chemotherapy with the ABVD on protocolCALGB [id number], October 20, 2011. Patient's PET scan showed complete response after 2 months of therapy. Per protocol patient scheduled for 4 cycles of ABVD. After cycle 3 patient with persistent cough and shortness of breath, CT negative but decision made to discontinue bleomycin for remaining treatment. Subjective: King comes in today for followup. His strength and energy level is back to completely normal. Theneuropathy in his hands is completely resolved although he still has a little bit of numbness in his feet. Additionally he is noting a little bit of erectile dysfunction at times and is now starting to get stressed a bit about that which isn't helping things. We discussed a trial of Viagra. He is not having any other symptoms or problems Review of Systems Constitutional: Negative for fever, chills, activity change, fatigue and unexpected weight change. HENT: Negative for sore throat, mouth sores and trouble swallowing. Eyes: Negative. Respiratory:No cough,or shortness of breath and wheezing. Cardiovascular: Negative for chest pain, palpitations and leg swelling. Gastrointestinal: Negative for nausea, vomiting, abdominal pain, diarrhea, constipation and abdominal distention. Genitourinary: Negative for dysuria and difficulty urinating. He does note some erectile dysfunction Musculoskeletal: Negative. Skin: Negative. Neurological: Negative Except for the mild neuropathy in his feet Hematological: Negative for adenopathy. I would rate his performance status at 100% His alopecia is resolved Head: Normocephalic, without obvious abnormality, atraumatic he has alopecia Eyes: PERRL, conjunctiva/corneas clear, EOM's intact, fundi benign, both eyes Ears: Normal TM's and external ear canals, both ears Nose: Nares normal, septum midline, mucosa normal, no drainage or sinus tenderness Throat: Lips, mucosa, and tongue normal; teeth and gums normal Neck: Supple, symmetrical, trachea midline, no adenopathy, thyroid: not enlarged, symmetric, no tenderness/mass/nodules, no carotid bruit or JVD Back: Symmetric, no curvature, ROM normal, no CVA tenderness Lungs: Clear to auscultation bilaterally, respirations unlabored. Absolutely no crackles Chest Wall: No tenderness or deformity Heart: Regular rate and rhythm, S1, S2 normal, no murmur, rub or gallop Abdomen: Soft, non-tender, bowel sounds active all four quadrants, no masses, no organomegaly Extremities: Extremities normal, atraumatic, no cyanosis or edema Pulses: 2+ and symmetric Skin: Skin color, texture, turgor normal, no rashes or lesions Lymph nodes: Cervical, supraclavicular, and axillary nodes normal Neurologic: Normal Lab is reviewed. Both CBC and CMP are scanned into the computer and reviewed. They are entirely normal CT Chest / Abdomen / Pelvis With Contrast Clinical History Lymphoma s/p treatment on clinical trial ([id number]) Restaging for Lymphoma clinical trials patient ([id number]) Bi-dimensional measures Do not use RECIST criteria Comparison March 07, 2012. Technique 110 mL Omnipaque 350 utilized for intravenous contrast. CT of the chest, abdomen pelvis obtained. Enteric contrast also administered. Findings Chest: The lungs are stable. A stable calcified granuloma is seen in the right lower lobe. This is benign. No suspicious pulmonary nodules. No areas of airspace consolidation or pleural effusion. No pericardial effusion. The soft tissues of the chest are stable. A stable, subcentimeter left supraclavicular lymph node is seen as noted below. No thoracic adenopathy, to include the axilla, mediastinum, and jose. Abdomen/pelvis: The liver, spleen, gallbladder, pancreas, adrenal glands, and kidneys are unremarkable and stable. No soft tissue lesions. No adenopathy, free fluid or free air. The bowel pattern is unremarkable, without evidence of dilated loops of small bowel or abnormal small bowel wall thickening. The osseous structures are unremarkable. Lesion 1: left supraclavicular lymph node. Previous scan: series 2, image 3, 6 x 8 mm. Present scan: Series 2, image 5, 6 x 8 mm. Impression Stable exam. No areas of adenopathy Examination CT Neck With Contrast Clinical History Lymphoma s/p treatment. Clinical trial patient ([id number]) Restaging for Lymphoma clinical trials patient ([id number]) Bi-dimensional measures Do not use RECIST criteria Comparison CT neck with contrast dated March 07, [address] of the neck with contrast Contrast: 110 cc of Omnipaque 350 Findings The previously identified left level III lymph node measures 14 mm x 6 mm compared to 17 mm x 6 mm on prior imaging. No new adenopathy is identified. There are no soft tissue masses are suspicious osseous abnormalities. The thyroid is normal. The visualized brain parenchyma appears normal. The visualized paranasal sinuses are clear. Indicator Lesion (s): 1. Left level 3 Lymph Node: Prior (03/07/2013) -- (series 2, image 159) -- 17 mm x 6 mm Current (06/01/2012) -- (series 5, image 144) -- 14 mm x 6 mm Impression 1. Stable left level III lymph node. 2. No new lymphadenopathy. Assessment/Plan: King has a stage II a classic Hodgkin's disease he has had a complete response and is in remission. His CT scans are fine and we'll see him back in 3 months for his next scheduled followup. Radiology and laboratory will be per protocol. We will try some Viagra. I do think it is possible that someof this problem is related to neuropathy although that would be unusual. He knows to call if problems develop in the interim. documented in this encounter Miscellaneous Notes * Miscellaneous - Provider, Scanning - 06/13/2012 11:54 AM EDT documented in this encounter Plan of Treatment Not on file documented as of this encounter Visit Diagnoses Diagnosis Erectile dysfunction- Primary Impotence of organic origin Hodgkin's disease Hodgkin's disease, unspecified documented in this encounter Care Teams Inserting Press Operator Relationship Specialty Start Date End Date Reginald Nieto APRN [address] [place] [address] PCP - General 09/30/11 10/05/13 documented as of this encounter
--- OUTSIDE RECORDS SUMMARY | 2024-01-24 11:02 | XMS_ITS | Encounter Summary ---
Author Organization [facility] [place] [address] Care Team Providers Care Metal Slitter Name Role Phone Reginald Nieto APRN Primary Care Provide r Reason for Visit * Reason Comments Chemotherapy ABVD Cycle 4 Day 1 C [id number] Encounter Details Date Type Department Care Team (Late st Contact Info) Description 01/13/2012 10:30 AM EDT Office Visit Hematology Oncology at [address] [phone] Lymphoma (Primary Dx) Social History Tobacco Use Types Packs/Day Years Used Date Smoking Tobacco: Every Day Cigarettes Smokeless Tobacco: Never Alcohol Use Standard Drinks/Week Comments Yes 1.7 (1 standard drink = 0.6 oz p ure alcohol) Sex and Gender Information Value Date Recorded Sex Assigned at Not on file Gender Identity Not on file Sexual Orientation Not on file documented as of this encounter Progress Notes * Amberly Culp RN - 01/13/2012 1:41 PM EDT INFUSION THERAPY ADMINISTRATION NOTES DIAGNOSIS: Lymphoma CYCLE #:Cycle 4 Day 1 REASON FOR VISIT: [id number] SUBJECTIVE King offers no complaints. OBJECTIVE LAB DATA:WNL, patient sent for CXR, Bleomycin held. IV ACCESS: PIV Pre administration: Chemotherapy orders independently verified for drug name, route, and dosage per patient's height, weight and BSA by Amberly Culp RN and May Carbone RN REACTIONS (DESCRIPTION, TIME, INTERVENTION AND EFFECTIVENESS) none ASSESSMENT King was awake, alert and tolerated treatment well. PLAN Return to clinic tomorrow for neulasta documented in this encounter Plan of Treatment Not on file documented as of this encounter Visit Diagnoses Diagnosis Lymphoma- Primary Other malignant lymphomas, unspecified site, extranodal and solid organ sites documented in this encounter Administered Medications Inactive Administered Medications - up to 3 most recent administrations Medication Order MAR Action Action Date Dose Rate Site dacarbazine (DTIC) 660 mg in dextrose 5% 316 mL chemo infusion 660 mg, Intravenous, ONCE, 1 dose, On Wed01/13/12 at 1030, Administer over 30 Minutes New Bag 01/13/2012 1:45 PM EDT 660 mg 632 mL/hr dexamethasone sodium (PF) 20 mg in sodium chloride 0.9% 52 mL IVPB Intravenous, at 208 mL/hr, ONCE, On Wed01/13/12 at 1130, 1 dose Given 01/13/2012 1:00 PM EDT 208 mL/hr DOXOrubicin (ADRIAMYCIN) chemo injection 44 mg 44 mg, Intravenous, ONCE, 1 dose, On Wed01/13/12 at 1030, Administer over 5 Minutes, Vesicant/irritant. Avoid extravasation Given 01/13/2012 1:25 PM EDT 44 mg 264 mL/hr fosaprepitant (EMEND) 150 mg in sodium chloride 0.9% 155 mL infusion 150 mg, Intravenous, ONCE, 1 dose, On Wed01/13/12 at 1030, Administer over 30 Minutes New Bag 01/13/2012 12:20 PM EDT 150 mg 310 mL/hr LORazepam (ATIVAN) injection 0.5-1 mg 0.5-1 mg, Intravenous, ONCE, 1 dose, On Wed01/13/12 at 1030, Routine Given 01/13/2012 1:00 PM EDT 0.5 mg palonosetron (ALOXI) injection 0.25 mg 0.25 mg, Intravenous, ONCE, 1 dose, On Wed01/13/12 at 1030, Routine Given 01/13/2012 12:15 PM EDT 0.25 mg sodium chloride 0.9% infusion 500 mL, Intravenous, ONCE, 1 dose, On Wed01/13/12 at 1030, With chemo New Bag 01/13/2012 12:15 PM EDT 500 mLs mL/hr vinBLAStine (VELBAN) chemo injection 11 mg 11 mg, Intravenous, ONCE, 1 dose, On Wed01/13/12 at 1030, Administer over 5 Minutes, FOR IV USE ONLY. FATAL IF GIVEN BY OTHER ROUTES. Vesicant/irritant Avoid extravasation Given 01/13/2012 1:35 PM EDT 11 mg 132 mL/hr documented in this encounter Care Teams Metal Slitter Relationship Specialty Start Date End Date Reginald Nieto APRN [address] [place] [address] PCP - General 09/30/11 10/05/13 documented as of this encounter
--- OUTSIDE RECORDS SUMMARY | 2024-01-24 11:02 | XMS_ITS | Encounter Summary ---
Author Organization [facility] [place] [address] Care Team Providers Care Ordained Minister Name Role Phone Reginald Nieto APRN Primary Care Provide r Encounter Details Date Type Department Care Team (Late st Contact Info) Description 03/07/2012 10:30 AM EST Clinical Support [facility] [place] [address] Social History Tobacco Use Types Packs/Day Years [...] on filedocumented in this encounter Care Teams Ordained Minister Relationship Specialty Start Date End Date Reginald Nieto APRN [address] [place] [address] PCP - General 09/30/11 10/05/13 documented as of this encounter
--- OUTSIDE RECORDS SUMMARY | 2024-01-24 11:02 | XMS_ITS | Encounter Summary ---
Author Organization [facility] [place] [address] Care Team Providers Care Open Hearth Furnace Operator Name Role Phone Reginald Nieto APRN Primary Care Provide r Reason for Visit * Reason Comments Lymphoma Encounter Details Date Type Department Care Team (Late st Contact Info) Description 01/20/2012 2:00 PM EDT Follow-Up Hematology Oncology at [address] [phone] Jay Kaur MD [address] [place] [address] [phone] Hodgkin's disease (Primary Dx) Discharge Disposition: Home [...] Sign Reading Time Taken Comments Blood Pressure 128/73 01/20/2012 1:57 PM EDT Pulse 105 01/20/2012 1:57 PM EDT Temperature 36.7 ??C (98.1 ??F) 01/20/2012 1:57 PM ED T Respiratory Rate 16 01/20/2012 1:57 PM EDT Oxygen Saturation 100% 01/20/2012 1:57 PM EDT Inhaled Oxygen Concentration - - Weight 63.4 kg (139 lb 12.4 oz) 01/20/2012 1:57 PM EDT Height 175.9 cm (5' 9.25) 01/20/2012 1:57 PM ED T Body Mass Index 20.49 01/20/2012 1:57 PM EDT documented in this encounter Progress Notes * Jay Kaur MD - 01/20/2012 3:52 PM EDT Problems: Classic Hodgkin's disease PET scan shows stage IIA disease. 36 x 25 mm node in the left neck +4 x 5mm node in the anterior mediastinum on the left side [id number]. Patient's PET scan showed complete response after 2 months of therapy. Per protocol patient scheduled for 4 cycles of ABVD. After cycle 3 patient with persistent cough and shortness of breath, CT negative but decision made to discontinue bleomycin for remaining treatment. Subjective: King comes in today basically to introduce himself in to discuss his final chemotherapy in the treatment of his Hodgkin's disease. He has had a lot of difficulties with anticipatory nausea and anxiety and with the past cycle of chemotherapy has had persistent problems with shortness of breath that led to his bleomycin being discontinued for his fourth and final cycle of treatment. He initially had decided not to go on with further chemotherapy but on thinking things through he comes in today noting he would like to finish his final chemotherapy this next week. Additional problems include a stocking glove kind of neuropathy that makes his feet feel a bit numb and tingly and results in him taking his socks off whenever he can at home. Does not describe it as exactly pain however simply a nuisance. He notes he tends to do well but right before chemotherapy is due is lately getting quite a bit of anxiety. He does have some Ativan on hand and believes that that helps. Additionally at some additional steroids given last cycle and he thinks that was helpful as well. He's not having any other difficulties or problems. He did have a CT scan of the chest which was done at [facility] along with a chest x-ray. Chest x-ray was read as normal and CT scan showed no evidence of pulmonary embolus orthoracic aortic injury. There was no parenchymal changes within the lung. Current outpatient prescriptions ordered prior to encounter Medication Sig Dispense Refill ??? sucralfate (CARAFATE) 1 gram tablet Take 1 g by mouth 4 times daily. ??? omeprazole (PRILOSEC) 40 mg capsule Take 40 mg by mouth daily. ??? azithromycin (ZITHROMAX) 500 mg tablet Take 1 tablet by mouth daily. 5 tablet 0 ??? LORazepam (ATIVAN) 1 mg tablet Take 1 tablet by mouth every 6 hours as needed for Anxiety. 30 tablet 4 ??? sertraline (ZOLOFT) 25 mg tablet Take 25 mg by mouth daily. ??? melatonin 10 mg Tab Take 10 mg by mouth nightly as needed. ??? prochlorperazine (COMPAZINE) 10 mg tablet Take 1 tablet by mouth every 6 hours as needed for Nausea. 30 tablet 2 Review of Systems Constitutional: Negative for fever, chills, activity change, fatigue and unexpected weight change. HENT: Negative for sore throat, mouth sores and trouble swallowing. Eyes: Negative. Respiratory: Negative for cough, shortness of breath and wheezing. Cardiovascular: Negative for chest pain, palpitations and leg swelling. Gastrointestinal: Negative for nausea, vomiting, abdominal pain, diarrhea, constipation and abdominal distention. Genitourinary: Negative for dysuria and difficulty urinating. Musculoskeletal: Negative. Skin: Negative. Neurological: Negative. Hematological: Negative for adenopathy. Head: Normocephalic, without obvious abnormality, atraumatic he [...] supraclavicular, and axillary nodes normal Neurologic: Normal Assessment/Plan: Hannah has a stage II a classic Hodgkin's disease and is finishing his fourth and final chemotherapy with ABVD with the bleomycin being held next week. He is still having some respiratory symptoms and one would wonder if he could not be related to the Neulasta since the symptoms recurred even though bleomycin was held at the start of his fourth cycle last week. Consideration to holding Neulastawill be given next week. If his respiratory symptoms and cough continues post chemotherapy next week I would consider placing him on prednisone for a month. We'll keep close tabs on him after this next chemotherapy and make a decision if symptoms again return. We will continue to hold the bleomycinas there is some suspicion that maybe the etiology of his symptoms. He is motivated to finish his therapy and I am glad he is decided to go ahead with that. Followup is arranged for next week with a CBC and CMP. documented in this encounter Plan of Treatment Not on file documented as of this encounter Visit Diagnoses Diagnosis Hodgkin's disease- Primary Hodgkin's disease, unspecified documented in this encounter Care Teams Open Hearth Furnace Operator Relationship Specialty Start Date End Date Reginald Nieto APRN [address] [place] [address] PCP - General 09/30/11 10/05/13 documented as of this encounter
--- OUTSIDE RECORDS SUMMARY | 2024-01-24 11:02 | XMS_ITS | Encounter Summary ---
Author Organization [facility] Address [facility] [place] [address] Care Team Providers Care Wwe Wrestler Name Role Phone Reginald Nieto APRN Primary Care Provide r Encounter Details Date Type Department Care Team (Late st Contact Info) Description 01/15/2012 Orders Only [address] [address] Josh Gonzalez MD [facility] HEMATOLOGY/[place] [address] Social History Tobacco Use Types Packs/Day Years [...] on file documented as of this encounter Procedures Procedure Name Priority Date/Time Associated Diagnosis Comments FILM LIBRARY STORAGE ONLY CT CHEST Routine 01/15/2012 9:03 AM EDT documented in this encounter Results * FILM LIBRARY- STORAGE ONLY CT CHEST (01/15/2012 9:03 AM EDT) 01/15/2012 9:03 AM EDT Narrative [facility] - 10/09/2013 7:02 PM EDT This is a non-reportable exam. Procedure Note Brayden Herman - 10/09/2013 This is a non-reportable exam. Josh Gonzalez MD [facility] FILM LIBRARY ORD ERABLES RAD [address] [facility] [place] [address] documented in this encounter Visit Diagnoses Not on filedocumented in this encounter Care Teams Wwe Wrestler Relationship Specialty Start Date End Date Reginald Nieto APRN [address] [place] [address] PCP - General 09/30/11 10/05/13 documented as of this encounter
--- OUTSIDE RECORDS SUMMARY | 2024-01-24 11:02 | XMS_ITS | Encounter Summary ---
Author Organization [facility] [place] [address] Care Team Providers Care Billet Recorder Name Role Phone Reginald Nieto APRN Primary Care Provide r Reason for Visit * Reason Comments Injections Neulasta Encounter Details Date Type Department Care Team (Late st Contact Info) Description 01/14/2012 2:30 PM EDT Office Visit Hematology Oncology at [address] [phone] CLIN[facility], [facility] Jay Kaur MD [address] [place] [id number] Hodgkin's disease (Primary Dx) Discharge Disposition: [...] Sign Reading Time Taken Comments Blood Pressure 93/51 01/14/2012 10:29 AM EDT Pulse 89 01/14/2012 10:29 AM EDT Temperature 36.7 ??C (98.1 ??F) 01/14/2012 10:29 AM E DT Respiratory Rate 18 01/14/2012 10:29 AM EDT Oxygen Saturation 100% 01/14/2012 10:29 AM EDT Inhaled Oxygen Concentration - - Weight - - Height - - Body Mass Index - - documented in this encounter Progress Notes * Sherry Collazo RN - 01/14/2012 10:44 AM EDT Treatment Started: 1030 Treatment Ended: 1044 Diagnosis: Hodgkin's Disease Treatment: Neulasta Injection Assessment: Patient is here for his neulasta injection. He states that he is feeling good this morning It's like night and day from other treatments. He states that he was able to eat 2 bowls of soup last night and ate granola for breakfast this morning. He states that he feels he is able to stayhydrated better too. He overall feels much better with the addition of dexamethasone and deletion of Bleomycin. He does report that he feels a little short-winded but I imagind that has to do with what is going on in my lungs. He verifies that he is supposed to have a CT scan of his chest. Plan: Patient will have CT scan of his chest. He was encouraged to push fluids and he was reminded to call with any questions/concerns. [...] mg, Subcutaneous, ONCE, 1 dose, On Veronica 01/14/12 at 1430, NOTE DOSE = 4 MG , Routine Given 01/14/2012 10:43 AM EDT 4 mg Righ t Arm documented in this encounter Care Teams Billet Recorder Relationship Specialty Start Date End Date Reginald Nieto APRN [address] [place] [address] PCP - General 09/30/11 10/05/13 documented as of this encounter
--- OUTSIDE RECORDS SUMMARY | 2024-01-24 11:02 | XMS_ITS | Encounter Summary ---
Author Organization [facility] [place] [address] Care Team Providers Care Engagement Manager Name Role Phone Reginald Nieto APRN Primary Care Provide r Encounter Details Date Type Department Care Team (Late st Contact Info) Description 03/07/2012 7:27 AM EST - 03/07/2012 8:01 AM [facility] [place] [phone] Social History Tobacco Use Types Packs/Day Years [...] Sig Dispensed Refills Start Date End Date sertraline (ZOLOFT) 25 mg tabletIndications:Hodgk in disease Take 25 mg by mouth daily. 03/09/2012 melatonin 10 mg TabIndications:Hodgkin disease Take 10 mg by mouth nightly as needed. 03/09/2012 sucralfate (CARAFATE) 1 gram tablet Take 1 g by mouth 4 times daily. 03/09/2012 omeprazole (PRILOSEC) 40 mg capsule Take 40 mg by mouth daily. 03/09/2012 azithromycin (ZITHROMAX) 500 mg tablet Take 1 tablet by mouth daily. 5 tablet 0 01/18/2012 03/09/2012 LORazepam (ATIVAN) 1 mg tablet Take 1 tablet by mouth every 6 hours as needed for Anxiety. 30 tablet 4 12/14/2011 09/29/2012 prochlorperazine (COMPAZINE) 10 mg tablet Take 1 tablet by mouth every 6 hours as needed for Nausea. 30 tablet 2 11/19/2011 03/09/2012 documented as of this encounter Plan of Treatment Not on file documented as of this encounter Procedures Procedure Name Priority Date/Time Associated Diagnosis Comments CT CHEST ABDOMEN PELVIS W CONTRAST (GENERIC) Routine 03/07/2012 9:53 AM EST documented in this encounter Results * CT chest, abdomen, & pelvis with contrast (03/07/2012 9:53 AM EST) Anatomical Region Laterality Modality Computed Tomogra phy 03/07/2012 9:53 AM EST Narrative 03/07/2012 1:[address] Chest / Abdomen / Pelvis With Contrast Clinical History BI DIMENSIONAL MEASUREMENTS LYMPHOMA PORTOCOL PT ??/P 4 CYCLES OF [address]REATMENT Comparison CT of the chest, abdomen pelvis dated December 10, [address] dated October 02, 2011. Technique CT of the chest, abdomen and pelvis following the administration of 110 cc of Omnipaque 350 and enteric contrast. ?? Findings Chest: ?? Stable 4 mm right lower lobe pulmonary nodule. No new pulmonary nodules. Stable bilateral apical bullous lung disease. No pleural effusions. The bronchial airways are patent. The heart is normal in size with no evidence of pericardial effusion. Homogeneous opacification of the main pulmonary arteries. No suspicious hilar or mediastinal lymphadenopathy. ?? Abdomen: ?? 1.3 cm hypodense lesion in the lateral aspect of the left lobe of the liver abutting the left portal vein which is stable compared to prior imaging and not hypermetabolic on PET. This likely represents a cyst versus focal fat. No additional hepatic lesions. ??No intra- or extrahepatic ductal dilatation. The gallbladder, pancreas, spleen, adrenal glands and kidneys appear normal. The small and large bowel are normal in course and caliber with no evidence of wall thickening or edema. No abdominal lymphadenopathy or free fluid. ?? Pelvis: ?? The bladder is distended, but appears normal. The prostate and seminal vesicles appear normal. No pelvic lymphadenopathy or free fluid. ?? No suspicious osseous abnormalities. ?? Lesions: ?? COMPARISON DATE (S): ?Previous Scan Date (s): ??CT chest, abdomen, and pelvis dated December 10, 2011. ?Current Scan Date: ??CT chest, abdomen, and pelvis dated March 07, 2012. ? LESION 1 (left supraclavicular lymph node): ?Previous Scan: Series #5, image #2, maximum diameter 7 mm x 9 mm ?Present Scan: ??Series #3, image #3, maximum diameter 6 mm x 9 mm Impression 1. Slight interval decrease in size of the indicator left supraclavicular lymph node. ?? 2. No new masses or lymphadenopathy. ?? 3. Stable right lower lobe pulmonary nodule. Film and interpretation reviewed by the attending Procedure Note Isabella Yu MD - 03/07/[address] Chest / Abdomen / Pelvis With Contrast Clinical History BI DIMENSIONAL MEASUREMENTS LYMPHOMA PORTOCOL PT /P 4 CYCLES [address] CT of the chest, abdomen pelvis dated December 10, [address] datedJu[address] Techn[address] CT of the chest, abdomen and pelvis following the administration of 110 ccof Omnipaque 350 and enteric contrast. Findings Chest: Stable 4 mm right lower lobe pulmonary nodule. No new pulmonary nodules.Stable bilateral apical bullous lung disease. No pleural effusions. The bronchial airways are patent. The heart is normal in size with no evidence ofpericardial effusion. Homogeneous opacification of the main pulmonary arteries. No suspicious hilar or mediastinal lymphadenopathy. Abdomen: 1.3 cm hypodense lesion in the lateral aspect of the left lobe of theliver abutting the left portal vein which is stable compared to prior imagingand not hypermetabolic on PET. This likely represents a cyst versus focal fat. No additional hepatic lesions. No intra- or extrahepatic ductal dilatation.The gallbladder, pancreas, spleen, adrenal glands and kidneys appear normal.The small and large bowel are normal in course and caliber with no evidence ofwall thickening or edema. No abdominal lymphadenopathy or free fluid. Pelvis: The bladder is distended, but appears normal. The prostate and seminalvesicles appear normal. No pelvic lymphadenopathy or free fluid. No suspicious osseous abnormalities. Lesions: COMPARISON DATE (S): Previous Scan Date (s): CT chest, abdomen, and pelvis dated December 10, 2011. Current Scan Date: CT chest, abdomen, and pelvis datedD2011. LESION 1 (left supraclavicular lymph node): Previous Scan: Series #5, image #2, maximum diameter 7 mm x 9mm Present Scan: Series #3, image #3, maximum diameter 6 mm x 9mm Impression 1. Slight interval decrease in size of the indicator left supraclavicularlymph node. 2. No new masses or lymphadenopathy. 3. Stable right lower lobe pulmonary nodule. Film and interpretation reviewed by the attending Jay Kaur MD IMG CT ORDERABLES documented in this encounter Visit Diagnoses Not on filedocumented in this encounter Care Teams Engagement Manager Relationship Specialty Start Date End Date Reginald Nieto APRN [address] [place] [address] PCP - General 09/30/11 10/05/13 documented as of this encounter
--- OUTSIDE RECORDS SUMMARY | 2024-01-24 11:02 | XMS_ITS | Encounter Summary ---
Author Organization [facility] [place] [address] Care Team Providers Care Supervisor Compressed Yeast Name Role Phone Reginald Nieto APRN Primary Care Provide r Encounter Details Date Type Department Care Team (Latest Contact Info) Description 03/07/2012 9:54 AM EST - 03/07/2012 11:59 PM [facility] Hospital [place] [phone] Hodgkin's disease Social History Tobacco Use Types Packs/Day Years [...] Procedure Name Priority Date/Time Associated Diagnosis Comments NM PET CT SKULL BASE TO MID-THIGH ([facility]) Routine 03/07/2012 12:10 PM EST Hodgkin's disease documented in this encounter Results * PET-CT skull base to mid thigh (03/07/2012 12:10 PM EST) Anatomical Region Laterality Modality Other 03/07/2012 12:1 0 PM EST Narrative 03/07/2012 3:26 PM EST Examination PET/CT STANDARD (Skull base to Mid-thigh) Technique Procedure: Following IV injection of 70-djoojt-9-deoxyglucose (FDG) and a standard uptake period, a non-contrast CT scan followed by a PET scan were acquired from the top of the skull to mid-thighs. The non-contrast CT was used for anatomic localization and photon attenuation correction of the PET scan. Blood Glucose Level (mg/dL):86 FDG Dose:9.75mCi (0.15 mCi/kg to maximum of 18 mCi). Pre-medication: None Clinical History Lymphoma, s/p 4 cycles of treatment: restaging Comparison PET-CT 12/10/2011 ?? Head/Neck There is normal variant brown fat activity in the paraspinal neck, vianey-clavicular region, and paraspinal thoracic region. The residual CT visualized left level III cervical lymph node measuring 1.7 cm, image 37, shows no significant metabolic activity. Chest Normal metabolic activity seen throughout the chest. Again seen is a small pre-vascular lymph node showing no significant metabolic activity. On CT images, stable biapical bullous changes. Abdomen/Pelvis Normal metabolic activity is seen throughout the abdomen and pelvis. Skeleton/Extremities Normal metabolic activity seen throughout the marrow of the axial and visualized appendicular skeleton. The previously seen reactive marrow changes have resolved. Impression No active lymphoma. Thank you for referring this patient to the [facility] PET Center Film and interpretation reviewed by the attending Procedure Note Stevie Perdue MD - 03/07/2012 Examination PET/CT STANDARD (Skull base to Mid-thigh) Technique Procedure: Following IV injection of 97-fcmekc-2-deoxyglucose (FDG) and a standard uptake period, a non-contrast CT scan followed by a PET scan were acquired from the top of the skull to mid-thighs. The non-contrast CT wasused for anatomic localization and photon attenuation correction of the PETscan. Blood Glucose Level (mg/dL):86 FDG Dose:9.75mCi (0.15 mCi/kg to maximum of 18 mCi). Pre-medication: None Clinical History Lymphoma, s/p 4 cycles of treatment: restaging Comparison PET-CT 12/10/2011 Head/Neck There is normal variant brown fat activity in the paraspinal neck, vianey-clavicular region, and paraspinal thoracic region. The residual CT visualized left level III cervical lymph node measuring 1.7 cm, image 37,shows no significant metabolic activity. Chest Normal metabolic activity seen throughout the chest. Again seen is a small pre-vascular lymph node showing no significant metabolic activity. On CT images, stable biapical bullous changes. Abdomen/Pelvis Normal metabolic activity is seen throughout the abdomen and pelvis. Skeleton/Extremities Normal metabolic activity seen throughout the marrow of the axial and visualized appendicular skeleton. The previously seen reactive marrowchanges have resolved. Impression No active lymphoma. Thank you for referring this patient to the [facility] PET Center Film and interpretation reviewed by the attending Jay Kaur MD IMG PET ORDERABLES documented in this encounter Visit Diagnoses Diagnosis Hodgkin's disease Hodgkin's disease, unspecified documented in this encounter Administered Medications Inactive Administered Medications - up to 3 most recent administrations Medication Order MAR Action Action Date Dose Rate Site iohexol (OMNIPAQUE) 350 mg iodine/mL injection 17,500 mg 17,500 mg (50 mL), Oral, ONCE PRN, 1 dose, Starting on Wed03/07/12 at 1052, Until Wed03/07/12 at 1052, Per Protocol, Routine Given 03/07/2012 10:52 AM EST 17,500 mg documented in this encounter Care Teams Supervisor Compressed Yeast Relationship Specialty Start Date End Date Reginald Nieto APRN [address] [place] [address] PCP - General 09/30/11 10/05/13 documented as of this encounter
--- OUTSIDE RECORDS SUMMARY | 2024-01-24 11:02 | XMS_ITS | Encounter Summary ---
Author Organization [facility] [place] [address] Care Team Providers Care Bull Gang Supervisor Name Role Phone Reginald Nieto APRN Primary Care Provide r Encounter Details Date Type Department Care Team (Late st Contact Info) Description 10/04/2013 Telephone Hematology [place] [address] Antonieta Denton RN Social History Tobacco Use Types Packs/Day Years [...] encounter Miscellaneous Notes * Telephone Encounter - Antonieta Denton RN - 10/04/2013 1:04 PM EDT RESEARCH NURSE TELEPHONE NOTE [id number]: Phase II Trial of Response-Adapted Chemotherapy Based on Positron Emission Tomography for Non-Bulky Stage I and II Hodgkin Lymphoma Date: 10/04/2013 Time: 11:45 AM Reason for call: Follow-up Received phone call from Juany Adams RN in [facility] regarding requested follow-up for Mr. Dickerson per F00295 protocol. Please see her telephone note for details. Return call placed to patient's , Jess. Discussed that the aforementioned follow-up testingconsists mainly of CT scans, which are [id number] for billing purposes. Jess states that,due to a $6000 copay, this is not manageable for them at this time. Discussed that financial counselor may be able to help them investigate whether they qualify for medical care assistance, to which Jess was agreeable. Communication sent to Mago Mcdaniel Financial Counselor with request to contact patient/. Per my discussion with Jess, follow-up letter to be sent to patient's home address to clarify whether we may continue to follow him via chart for study purposes. verbalizes understanding of, and agreement with, plan. Advised to contact this office for any additional questions/concerns. documented in this encounter Plan of Treatment Not on file documented as of this encounter Visit Diagnoses Not on filedocumented in this encounter Care Teams Bull Gang Supervisor Relationship Specialty Start Date End Date Reginald Nieto APRN [address] [place] [address] PCP - General 09/30/11 10/05/13 documented as of this encounter
--- OUTSIDE RECORDS SUMMARY | 2024-01-24 11:02 | XMS_ITS | Encounter Summary ---
Author Organization [facility] Address [facility] [place] [address] Care Team Providers Care Truck Driver Helper Name Role Phone Reginald Nieto APRN Primary Care Provide r Encounter Details Date Type Department Care Team (Late st Contact Info) Description 03/08/2013 Orders Only Hematology [place] [address] Stevie Domingo MD [facility] [address] [place] [address] Hodgkin disease (Primary Dx) Social History Tobacco Use Types [...] as of this encounter Miscellaneous Notes * Addendum Note - Antonieta Denton RN - 03/08/2013 2:49 PM ESTAddended by: ANTONIETA DENTON on: 03/08/2013 02:49 PM Modules accepted: Orders documented in this encounter Plan of Treatment Not on file documented as of this encounter Visit Diagnoses Diagnosis Hodgkin disease- Primary Hodgkin's disease, unspecified documented in this encounter Care Teams Truck Driver Helper Relationship Specialty Start Date End Date Reginald Nieto APRN [address] [place] [address] PCP - General 09/30/11 10/05/13 documented as of this encounter
--- OUTSIDE RECORDS SUMMARY | 2024-01-24 11:02 | XMS_ITS | Encounter Summary ---
Author Organization [facility] [place] [address] Care Team Providers Care Yarn Wrapper Name Role Phone Reginald Nieto APRN Primary Care Provide r Reason for Visit * Reason Onset Date Comments Follow-up 10/04/2013 Protocol [id number] Encounter Details Date Type Department Care Team (Late st Contact Info) Description 10/04/2013 Telephone Hematology Oncology at [address] [phone] Juany Adams RN Follow-up (Protocol [id number]) Social History Tobacco Use Types Packs/Day Years [...] encounter Miscellaneous Notes * Telephone Encounter - Juany Adams RN - 10/04/2013 9:53 AM EDT A request had been made to Dr. Kaur for follow up surveillance imaging to be done for protocol [id number] in which King is enrolled. A call wnet out to King to ask if he is willing and able to havesuch follow up studies done. His Jess calls today to say that he is willing, but they cannot afford to have scans done as their health insurance copay/deductible is $6000. A call was placed to the Heme/Onc Protocol Ofice at [facility] and Antonieta Denton RN, the research nurse for [id number], explained that the imaging studies requested are considered standard of care and therefore not covered by the study. She was appreciative of the feedback on Mr. Dickerson and she will call King's , Jess, directly to discuss possibilities for coverage of the study requirements. Jess's number is [phone]. Dr. Kaur states that the study requirements are not necessary medically, only as protocol data. documented in this encounter Plan of Treatment Not on file documented as of this encounter Visit Diagnoses Not on filedocumented in this encounter Care Teams Yarn Wrapper Relationship Specialty Start Date End Date Reginald Nieto APRN [address] [place] [address] PCP - General 09/30/11 10/05/13 documented as of this encounter
--- OUTSIDE RECORDS SUMMARY | 2024-01-24 11:02 | XMS_ITS | Encounter Summary ---
Author Organization [facility] [place] [address] Care Team Providers Care Credit Associate Name Role Phone Reginald Nieto APRN Primary Care Provide r Encounter Details Date Type Department Care Team (Latest Contact Info) Description 06/01/2012 11:09 AM EDT - 06/01/2012 2:02 PM EDT Hospital [place] [phone] Hodgkin lymphoma Social History Tobacco Use Types Packs/Day Years [...] Sig Dispensed Refills Start Date End Date LORazepam (ATIVAN) 1 mg tablet Take 1 tablet by mouth every 6 hours as needed for Anxiety. 30 tablet 4 12/14/2011 09/29/2012 documented as of this encounter Miscellaneous Notes * Miscellaneous - Provider, Scanning - 06/07/2012 4:15 AM EDT documented in this encounter Plan of Treatment Not on file documented as of this encounter Procedures Procedure Name Priority Date/Time Associated Diagnosis Comments CT NECK SOFT TISSUE W CONTRAST Routine 06/01/2012 1:50 PM EDT Hodgkin's disease, unspecified documented in this encounter Results * CT neck soft tissue with contrast (06/01/2012 1:50 PM EDT) Anatomical Region Laterality Modality Neck, Head Computed Tomogra phy 06/01/2012 1:50 PM EDT Narrative 06/01/2012 4:[address] Neck With Contrast Clinical History Lymphoma ?? s/p treatment. Clinical trial patient ([id number]) Restaging for Lymphoma clinical trials patient ([id number]) ?? Bi-dimensional measures Do not use RECIST criteria Comparison CT neck with contrast dated March 07, 2012 ?? Technique CT of the neck with contrast ?? Contrast: 110 cc of Omnipaque 350 ?? Findings The previously identified left level III lymph node measures 14 mm x 6 mm compared to 17 mm x 6 mm on prior imaging. No new adenopathy is identified. There are no soft tissue masses are suspicious osseous abnormalities. The thyroid is normal. The visualized brain parenchyma appears normal. ??The visualized paranasal sinuses are clear. ?? Indicator Lesion (s): 1. Left level 3 Lymph Node: Prior (03/07/2013) -- (series 2, image 159) -- 17 mm x 6 mm Current (06/01/2012) -- (series 5, image 144) -- 14 mm x 6 mm Impression ? 1. Stable left level III lymph node. ? 2. No new lymphadenopathy. Film and interpretation reviewed by the attending Procedure Note Jay Monge MD - 06/01/[address] Neck With Contrast Clinical History Lymphoma s/p treatment. Clinical trial patient ([id number]) Restaging for Lymphoma clinical trials patient ([id number]) Bi-dimensional measures Do not use RECIST criteria Comparison CT neck with contrast dated March 07, [address] of the neck with contrast Contrast: 110 cc of Omnipaque 350 Findings The previously identified left level III lymph node measures 14 mm x 6 mm compared to 17 mm x 6 mm on prior imaging. No new adenopathy isidentified. There are no soft tissue masses are [...] III lymph node. 2. No new lymphadenopathy. Film and interpretation reviewed by the attending Jay Kaur MD IMG CT ORDERABLES documented in this encounter Visit Diagnoses Diagnosis Hodgkin lymphoma Hodgkin's disease, unspecified documented in this encounter Administered Medications Inactive Administered Medications - up to 3 most recent administrations Medication Order MAR Action Action Date Dose Rate Site iohexol (OMNIPAQUE) 350 mg iodine/mL injection 17,500 mg 17,500 mg (50 mL), Oral, ONCE PRN, 1 dose, Starting on Wed06/01/12 at 1338, Until Wed06/01/12 at 1100, Per Protocol, Routine Given 06/01/2012 11:00 AM EDT 17,500 mg iohexol (OMNIPAQUE) 350 mg iodine/mL injection 38,500 mg 38,500 mg (110 mL), Intravenous, ONCE PRN, 1 dose, Starting on Wed06/01/12 at 1338, Until Wed06/01/12 at 1344, Per Protocol, Routine Given 06/01/2012 1:44 PM EDT 38,500 mg documented in this encounter Care Teams Credit Associate Relationship Specialty Start Date End Date Reginald Nieto APRN [address] [place] [address] PCP - General 09/30/11 10/05/13 documented as of this encounter
--- OUTSIDE RECORDS SUMMARY | 2024-01-24 11:02 | XMS_ITS | Encounter Summary ---
Author Organization [facility] [place] [address] Care Team Providers Care Sound Cutter Name Role Phone Reginald Nieto APRN Primary Care Provide r Reason for Visit * Reason Comments Lymphoma Encounter Details Date Type Department Care Team (Late st Contact Info) Description 01/27/2012 10:00 AM EST Follow-Up Hematology Oncology at [address] [phone] Jay Kaur MD [address] [place] [phone] Hodgkin's disease (Primary Dx) Discharge Disposition: Home [...] Sign Reading Time Taken Comments Blood Pressure 115/72 01/27/2012 9:48 AM EST Pulse 101 01/27/2012 9:48 AM EST Temperature 36.5 ??C (97.7 ??F) 01/27/2012 9:48 AM ES T Respiratory Rate 16 01/27/2012 9:48 AM EST Oxygen Saturation 100% 01/27/2012 9:48 AM EST Inhaled Oxygen Concentration - - Weight 62 kg (136 lb 11 oz) 01/27/2012 9:[address] Height 175.9 cm (5' 9.25) 01/27/2012 9:48 AM ES T Body Mass Index 20.04 01/27/2012 9:48 AM EST documented in this encounter Progress Notes * Jay Kaur MD - 01/27/2012 11:55 AM EST Problems: Classic Hodgkin's disease PET scan shows stage IIA disease. 36 x 25 mm node in the left neck +4 x 5mm node in the anterior mediastinum on the left side [id number]. Patient's PET scan showed complete response after 2 months of therapy. Per protocol patient scheduled for 4 cycles of ABVD. After cycle 3 patient with persistent cough and shortness of breath, CT negative but decision made to discontinue bleomycin for remaining treatment. Subjective: King comes in today for his final ABVD (day 15 cycle 4). He has been tolerating her therapy well but started developing cough about a month ago which was fairly severe. It's gotten better now and he is breathing better as well. Because of that so the decision was made to discontinue his bleomycin. I saw him last week and we also discussed not giving him any Neulasta with his final treatment as his counts have been fine. There some thought that the Neulasta might be part of his cough rather than the bleomycin. He is here today with his usual anticipatory anxiety and nervousness. He has notedthat giving him some Ativan immediately does seem to help him get through treatment and requests wedo so today. We will of course help him with this. Other than that though he's not having fever chills or sweats only some fatigue from treatment. Review systems is essentially otherwise negative. Review of Systems Constitutional: Negative for fever, chills, activity change, fatigue and unexpected weight change. HENT: Negative for sore throat, mouth sores and trouble swallowing. Eyes: Negative. Respiratory: A little cough, but no shortness of breath and wheezing. Cardiovascular: Negative [...] nodes normal Neurologic: Normal Lab is reviewed. Creatinine is 0.9 electrolytes normal liver tests are normal as well. CBC shows white count of 10.56 hemoglobin 12.2 hematocrit 37.7 and platelet count of 222. Assessment/Plan: Hannah has a stage II a classic Hodgkin's disease and is finishing his fourth and final chemotherapy with ABVD with the bleomycin being held today. Since this is his last treatment we will forego giving him any Neulasta tomorrow with my hope being that that may of been the reason for his cough. He'll let us know. I think if he starts coughing again significantly after this treatment I would go ahead and give him a month of prednisone and then taper him off of that over the following month. He'll let us know if his cough worsens. We also discussed followup with plans on repeating a PET scan about 3 months after the completion of treatment. We will look at the protocol to see if it offers any additional requirements. We'll see him back in early February with a CBC and CMP along with an LDH. He'll call if his cough worsens or he has other issues or problems in the interim. documented in this encounter Plan of Treatment Scheduled Orders Name Type Priority Associated Diagnoses Orde r Schedule CBC (with Diff) Lab Routine Hodgkin's disease Expected: 02/24/2012 (Approximate), Expires: 01/26/2013 Comprehensive metabolic panel (non-fasting) Lab Routine Hodgkin's disease Expected: 02/24/2012 (Approximate), Expires: 01/26/2013 Lactate Dehydrogenase Lab Routine Hodgkin's disease Expected: 02/24/2012 (Approximate), Expires: 01/26/2013 documented as of this encounter Visit Diagnoses Diagnosis Hodgkin's disease- Primary Hodgkin's disease, unspecified documented in this encounter Care Teams Sound Cutter Relationship Specialty Start Date End Date Reginald Nieto APRN [address] [place] [address] PCP - General 09/30/11 10/05/13 documented as of this encounter
--- OUTSIDE RECORDS SUMMARY | 2024-01-24 11:02 | XMS_ITS | Encounter Summary ---
Author Organization [facility] [place] [address] Care Team Providers Care Banana Loader Name Role Phone Reginald Nieto APRN Primary Care Provide r Reason for Visit * Reason Onset Date Comments Medication Problem 06/08/2012 prior authori zation required for Viagra Encounter Details Date Type Department Care Team (Late st Contact Info) Description 06/08/2012 Refill Hematology Oncology at [address] [phone] Juany Adams RN Erectile dysfunction (Primary Dx) Social History Tobacco Use Types [...] Telephone Encounter - Juany Adams RN - 06/08/2012 2:40 PM EDT Prior authorization applied for and granted by [email or web address].speaking with Jelena. Authorization approved for one year through 06/08/13 for Viagra 50 mg 8 tablets per month. Reference number [id number]. [place] [address], . . documented in this encounter Plan of Treatment Not on file documented as of this encounter Visit Diagnoses Diagnosis Erectile dysfunction- Primary Impotence of organic origin documented in this encounter Care Teams Banana Loader Relationship Specialty Start Date End Date Reginald Nieto APRN [address] [place] [address] PCP - General 09/30/11 10/05/13 documented as of this encounter
--- OUTSIDE RECORDS SUMMARY | 2024-01-24 11:02 | XMS_ITS | Encounter Summary ---
Author Organization [facility] [place] [address] Care Team Providers Care Principal Account Clerk Name Role Phone Reginald Nieto APRN Primary Care Provide r Reason for Visit * Reason Onset Date Comments Other 01/18/2012 Encounter Details Date Type Department Care Team (Late st Contact Info) Description 01/18/2012 Telephone Hematology Oncology at [address] [phone] May Carbone, RN Other Social History Tobacco Use Types Packs/Day Years [...] encounter Miscellaneous Notes * Telephone Encounter - Sherry Collazo RN - 01/18/2012 11:38 AM EDT Spoke with Dr. Gonzalez - He would like patient to see Dr. Tiwari today for evaluation. ?Thrush,? Need for EGD. Called patient - he is agreeable to this and would like to see Dr. Tiwari today. He will come toclinic at 2:30. * Telephone Encounter - May Carbone RN - 01/18/2012 11:22 AM EDT Patient called to report my body just can not take this no more. I picked up this cough a coupleweeks ago and I can not bounce back. States he continues to cough, no fever, but does have hot flashes and cold chills periodically. States some days are better than others and he is mildly better since going to ER late last week and starting omeprazole and sucrulfate qid, but on occasions is light headed and dizzy - not constant and is drinking water nonstop. I have no energy States he feels like he has the flu all the time - aches, cold/hot flashes, no energy, and ongoing cough. I just don't know what to do My throat continues to bother me documented in this encounter Plan of Treatment Not on file documented as of this encounter Visit Diagnoses Not on filedocumented in this encounter Care Teams Principal Account Clerk Relationship Specialty Start Date End Date Reginald Nieto APRN [address] [place] [address] PCP - General 09/30/11 10/05/13 documented as of this encounter
--- OUTSIDE RECORDS SUMMARY | 2024-01-24 11:02 | XMS_ITS | Encounter Summary ---
Author Organization [facility] Address [facility] [place] [address] Care Team Providers Care Music Mixer Name Role Phone Reginald Nieto APRN Primary Care Provide r Encounter Details Date Type Department Care Team (Late st Contact Info) Description 01/18/2012 2:30 PM EDT Follow-Up Hematology Oncology at [address] [phone] Bro Tiwari MD [facility] [address] [place] [address] Cough (Primary Dx); Hodgkin lymphoma Discharge Disposition: Home Social History [...] Sign Reading Time Taken Comments Blood Pressure 106/63 01/18/2012 2:26 PM EDT Pulse 103 01/18/2012 2:26 PM EDT Temperature 36.9 ??C (98.4 ??F) 01/18/2012 2:26 PM ED T Respiratory Rate 18 01/18/2012 2:26 PM EDT Oxygen Saturation 98% 01/18/2012 2:26 PM EDT Inhaled Oxygen Concentration - - Weight 64 kg (141 lb) 01/18/2012 2:26 PM EDT Height 175.9 cm (5' 9.25) 01/18/2012 2:26 PM ED T Body Mass Index 20.67 01/18/2012 2:26 PM EDT documented in this encounter Progress Notes * Bro Tiwari MD - 02/09/2012 6:18 PM EST Subjective: Hodgkin's lymphoma in Patient ID: King Dickerson is a 41 y.o. male. Classic Hodgkin's disease PET scan shows stage IIA disease. 36 x 25 mm node in the left neck +4 x 5mm node in the anterior mediastinum on the left side started chemotherapy with the ABVD on protocolCALGB 26583, October 20, 2011. Patient's PET scan showed complete response after 2 months of therapy. Per protocol patient scheduled for 4 cycles of ABVD. After cycle 3 patient with persistent cough and shortness of breath, CT negative but decision made to discontinue bleomycin for remaining treatment HPI 41 years old gentleman diagnosed with classical Hodgkin's lymphoma stage II a who received 3 cycles of ABVD chemotherapy and developed dry cough and some shortness of breath area so his bleomycinwas held. Today he complains on discomfort in his throat, mouth and dry cough Past medical history: No changes Social history: he is a smoker. Family history no changes Allergies: Reviewed Medication: Reviewed Review of Systems Constitutional: Positive for fatigue. Negative for fever, chills, activity change, appetite change and unexpected weight change. HENT: Negative for neck pain. Respiratory: Positive for cough and shortness of breath. Negative for wheezing and stridor. Cardiovascular: Negative for chest pain, palpitations and leg swelling. Gastrointestinal: Negative for nausea, vomiting, abdominal pain, diarrhea, blood in stool, abdominal distention and rectal pain. Genitourinary: Negative for difficulty urinating. Musculoskeletal: Negative for myalgias, back pain, joint swelling, arthralgias and gait problem. Skin: Negative for color change, pallor and rash. Neurological: Negative for tremors and weakness. Hematological: Negative for adenopathy. Does not bruise/bleed easily. Psychiatric/Behavioral: Negative for behavioral problems, confusion and agitation. the systems were reviewed and otherwise negative Objective: Physical Exam Constitutional: He is oriented to person, place, and time. He appears well- developed and well-nourished. HENT: Mouth/Throat: No oropharyngeal exudate. No mouth sores, no rashes Eyes: Conjunctivae are normal. No scleral icterus. Neck: Neck supple. Cardiovascular: Normal rate, regular rhythm and normal heart sounds. Pulmonary/Chest: Effort normal and breath sounds normal. No respiratory distress. He has no wheezes. Abdominal: Soft. Bowel sounds are normal. He exhibits no distension and no mass. No tenderness. He has no guarding. Musculoskeletal: He exhibits no edema and no tenderness. Lymphadenopathy: He has no cervical adenopathy. Neurological: He is alert and oriented to person, place, and time. No cranial nerve deficit. Skin: Skin is warm and dry. No rash noted. No erythema. Psychiatric: He has a normal mood and affect. His behavior is normal. Thought content normal. Lymph nodes: No palpable lymph nodes. Assessment and Plan: 1. classic Hodgkin's lymphoma: Stage II A., patient currently getting this fourth cycle of ABVD chemotherapy, He had episodes of fever, cough and shortness of breath. Due to question of bleomycin pulmonary toxicity his bleomycin was held. Patient still has significant dry cough and discomfort in the throat. I will order PFTs to determine DLCO He does have followup appointment with Dr. Kaur The plan was discussed with the patient in details. All questions were answered to patient's satisfaction. This note was created using [employer] voice recognition software. It was reviewed for major content. However, there may be multiple small discrepancies and errors due to the voice recognition aspects of the software. No problem-specific visit notes found for this encounter. documented in this encounter Plan of Treatment Not on file documented as of this encounter Visit Diagnoses Diagnosis Cough- Primary Hodgkin lymphoma Hodgkin's disease, unspecified documented in this encounter Care Teams Music Mixer Relationship Specialty Start Date End Date Reginald Nieto APRN [address] [place] [address] PCP - General 09/30/11 10/05/13 documented as of this encounter
--- OUTSIDE RECORDS SUMMARY | 2024-01-24 11:02 | XMS_ITS | Encounter Summary ---
Author Organization [facility] [place] [address] Care Team Providers Care Stitch Welder Name Role Phone Reginald Nieto APRN Primary Care Provide r Encounter Details Date Type Department Care Team (Latest Contact Info) Description 06/01/2012 11:08 AM EDT - 06/01/2012 11:59 PM EDT Hospital [place] [phone] CLINIC, Jay Desai MD [address] [place] [address] [place], [place] [id number] Hodgkin lymphoma Discharge Disposition: Home Social History [...] 12/14/2011 09/29/2012 documented as of this encounter Plan of Treatment Not on file documented as of this encounter Procedures Procedure Name Priority Date/Time Associated Diagnosis Comments CT CHEST ABDOMEN PELVIS W CONTRAST (GENERIC) Routine 06/01/2012 1:50 PM EDT Hodgkin's disease, unspecified documented in this encounter Results * CT chest, abdomen, & pelvis with contrast (06/01/2012 1:50 PM EDT) Anatomical Region Laterality Modality Computed Tomogra phy 06/01/2012 1:50 PM EDT Narrative 06/01/2012 1:[address] Chest / Abdomen / Pelvis With Contrast Clinical History Lymphoma ?? s/p treatment on clinical trial ([id number]) Restaging for Lymphoma clinical trials patient ([id number]) ?? Bi-dimensional measures Do not use RECIST criteria Comparison March 07, 2012. Technique 110 mL Omnipaque 350 utilized for intravenous contrast. ??CT of the chest, abdomen pelvis obtained. ??Enteric contrast also administered. Findings Chest: The lungs are stable. ??A stable calcified granuloma is seen in the right lower lobe. ??This is benign. ??No suspicious pulmonary nodules. ??No areas of airspace consolidation or pleural effusion. ??No pericardial effusion. The soft tissues of the chest are stable. ??A stable, subcentimeter left supraclavicular lymph node is seen as noted below. ??No thoracic adenopathy, to include the axilla, mediastinum, and jose. Abdomen/pelvis: The liver, spleen, gallbladder, pancreas, adrenal glands, and kidneys are unremarkable and stable. No soft tissue lesions. ?? No adenopathy, free fluid or free air. ??The bowel pattern is unremarkable, without evidence of dilated loops of small bowel or abnormal small bowel wall thickening. The osseous structures are unremarkable. Lesion 1: left supraclavicular lymph node. ?? Previous scan: series 2, image 3, 6 x 8 mm. ?? Present scan: Series 2, image 5, 6 x 8 mm. ?? Impression Stable exam. ??No ??areas of adenopathy. Procedure Note Henok Castro MD - 06/01/[address] Chest / Abdomen / Pelvis With Contrast Clinical History Lymphoma s/p treatment on clinical trial ([id number]) Restaging for Lymphoma clinical trials patient ([id number]) Bi-dimensional measures Do not use RECIST criteria Comparison March 07, 2012. Technique 110 mL Omnipaque 350 utilized for intravenous contrast. CT of the chest, abdomen pelvis obtained. Enteric contrast also administered. Findings Chest: The lungs are stable. A stable calcified granuloma is seen in the rightlower lobe. This is benign. No suspicious pulmonary nodules. No areas ofairspace consolidation or pleural effusion. No pericardial effusion. The soft tissues of the chest are stable. A stable, subcentimeter left supraclavicular lymph node is seen as noted below. No thoracicadenopathy, to include the axilla, mediastinum, and jose. Abdomen/pelvis: The liver, spleen, gallbladder, pancreas, adrenal glands, and kidneys are unremarkable and stable. No soft tissue lesions. No adenopathy, free fluid or free air. The bowel pattern is unremarkable, without evidence of dilated loops of small bowel or abnormal small bowelwall thickening. The osseous structures are unremarkable. Lesion 1: left supraclavicular lymph node. Previous scan: series 2, image 3, 6 x 8 mm. Present scan: Series 2, image 5, 6 x 8 mm. Impression Stable exam. No areas of adenopathy. Jay Kaur MD IMG CT ORDERABLES documented in this encounter Visit Diagnoses Diagnosis Hodgkin lymphoma Hodgkin's disease, unspecified documented in this encounter Care Teams Stitch Welder Relationship Specialty Start Date End Date Reginald Nieto APRN [address] [place] [address] PCP - General 09/30/11 10/05/13 documented as of this encounter
--- OUTSIDE RECORDS SUMMARY | 2024-01-24 11:02 | XMS_ITS | Encounter Summary ---
Author Organization [facility] Address [facility] [place] [address] Care Team Providers Care Rn Family Practice Name Role Phone Reginald Nieto APRN Primary Care Provide r Encounter Details Date Type Department Care Team (Late st Contact Info) Description 01/27/2012 Notes Only Hematology Oncology at [address] [phone] Katlyn Vann MSW OFFICE OF CARE MANAGEMENT Social History Tobacco Use Types Packs/Day Years [...] as of this encounter Progress Notes * Katlyn Vann MSW - 01/28/2012 8:15 AM EST Follow up with pt during infusion 01-27-12. Pt's mother in law accompanied him today. Pt very pleased this is his last chemo. He talked about the support he has received throughout his treatments not only from his extended family and friends but from co-workers. Mother in law indicated that she thought pt and his were doing well overall. documented in this encounter Plan of Treatment Not on file documented as of this encounter Visit Diagnoses Not on filedocumented in this encounter Care Teams Rn Family Practice Relationship Specialty Start Date End Date Reginald Nieto APRN [address] [place] [address] PCP - General 09/30/11 10/05/13 documented as of this encounter
--- OUTSIDE RECORDS SUMMARY | 2024-01-24 11:02 | XMS_ITS | Encounter Summary ---
Author Organization [facility] Address [facility] [place] [address] Care Team Providers Care Mechanical Project Engineer Name Role Phone Reginald Nieto APRN Primary Care Provide r Encounter Details Date Type Department Care Team (Late st Contact Info) Description 01/20/2012 External Results XRay at [address] [place] [phone] Josh Griffin MD [address] [place], [place] [id number] Social History Tobacco Use Types Packs/Day Years [...] Name Priority Date/Time Associated Diagnosis Comments CT SCAN (SCAN) Routine 01/15/2012 documented in this encounter Results * Scan Doc: CT Scan (01/15/2012) Anatomical Region Laterality Modality Other Josh Griffin MD MEDIA MGR SCAN EXT O RDR/RSLT documented in this encounter Visit Diagnoses Not on filedocumented in this encounter Care Teams Mechanical Project Engineer Relationship Specialty Start Date End Date Reginald Nieto APRN [address] [place] [address] PCP - General 09/30/11 10/05/13 documented as of this encounter
--- OUTSIDE RECORDS SUMMARY | 2024-01-24 11:02 | XMS_ITS | Encounter Summary ---
Author Organization [facility] [place] [address] Care Team Providers Care Hospitality Director Name Role Phone Reginald Nieto APRN Primary Care Provide r Reason for Visit * Reason Comments Lymphoma Encounter Details Date Type Department Care Team (Late st Contact Info) Description 09/29/2012 2:00 PM EDT Follow-Up Hematology Oncology at [address] [phone] Jay Kaur MD [address] [place] [id number] Hodgkin disease (Primary Dx) Discharge Disposition: Home Social [...] Sign Reading Time Taken Comments Blood Pressure 104/66 09/29/2012 1:51 PM EDT Pulse 109 09/29/2012 1:51 PM EDT Temperature 36.8 ??C (98.2 ??F) 09/29/2012 1:51 PM ED T Respiratory Rate 16 09/29/2012 1:51 PM EDT Oxygen Saturation 98% 09/29/2012 1:51 PM EDT Inhaled Oxygen Concentration - - Weight 65.1 kg (143 lb 8 oz) 09/29/2012 1:51 PM EDT Height 175.9 cm (5' 9.25) 09/29/2012 1:51 PM ED T Body Mass Index 21.04 09/29/2012 1:51 PM EDT documented in this encounter Progress Notes * Jay Kaur MD - 09/29/2012 2:01 PM EDT Problems: Classic Hodgkin's disease, PET scan shows stage IIA disease. 36 x 25 mm node in the left neck +4 x 5 mm node in the anterior mediastinum on the left side started chemotherapy with the ABVD on protocol CALGB 21482, October 20, 2011. Patient's PET scan showed complete response after 2 months of therapy.Per protocol patient scheduled for 4 cycles of ABVD. After cycle 3 patient with persistent cough and shortness of breath, CT negative but decision made to discontinue bleomycin for remaining treatment. Subjective: King comes in today for followup. His strength and energy level have remained completely normal. He is no longer needing to take any Viagra and his problems with erectile dysfunction resolved. He is back playing golf and is physically active with no complaints of neuropathy or other sequelae. Review systems is completely negative. Review of Systems Constitutional: Negative for [...] supraclavicular, and axillary nodes normal Neurologic: Normal Results for KING LEE ( ) as of 09/29/2012 13:54 Ref. Range 09/26/2012 12:44 WBC Latest Range: 4.0-10.0 x10(3)/mcL 6.2 RBC Latest Range: 4.63-6.08 x10(6)/mcL 4.94 Hemoglobin Latest Range: 13.7-17.5 gm/dL 14.8 Hematocrit Latest Range: 40.0-51.0 % 44.7 MCV Latest Range: 79.0-92.0 fL 90.5 MCH Latest Range: 25.6-32.2 pg 30.0 MCHC Latest Range: 32.0-36.5 gm/dL 33.1 RDWSD Latest Range: 35.0-46.0 fL 41.1 RDWCV Latest Range: 10.9-14.4 % 12.5 Platelets Latest Range: 145-370 x10(3)/mcL 166 MPV Latest Range: 9.0-12.0 fL 11.2 Neutr Abs (ANC) Latest Range: 1.50-6.30 x10(3)/mcL 3.64 Neutrophils % Latest Range: 34.0-71.0 % 59.2 Immature Gran % Latest Range: 0.00-0.66 % 0.20 Lymphocytes % Latest Range: 19.0-53.0 % 27.4 Monocytes % Latest Range: 4.0-13.0 % 7.1 Eosinophils % Latest Range: 0.0-7.0 % 5.8 Basophils % Latest Range: 0.0-2.0 % 0.3 Deepali Gran Abs Latest Range: 0.00-0.05 x10(3)/mcL 0.01 Lymphocytes Abs Latest Range: 1.0-3.6 x10(3)/mcL 1.7 Monocyte Abs Latest Range: 0.2-1.0 x10(3)/mcL 0.4 Eosinophils Abs Latest Range: 0.0-0.5 x10(3)/mcL 0.4 Basophils Abs Latest Range: 0.0-0.2 x10(3)/mcL 0.0 Sed Rate Latest Range: 0-15 mm/hr 2 Sodium Latest Range: 135-145 mmol/L 139 Potassium Latest Range: 3.5-5.0 mmol/L 3.6 Chloride Latest Range: 98-107 mmol/L 103 CO2 Latest Range: 22-31 mmol/L 24 Anion Gap Latest Range: 5-15 mmol/L 12 BUN Latest Range: 10-20 mg/dL 15 Creatinine Latest Range: 0.80-1.50 mg/dL 0.82 Estimated GFR Latest Range: >=60 >60 Glucose Lvl Latest Range: 60-199 mg/dL 83 Calcium Latest Range: 8.5-10.5 mg/dL 8.8 Total Protein Latest Range: 6.4-8.3 gm/dL 6.3 (L) Albumin Latest Range: 3.2-5.2 gm/dL 4.4 Total Bilirubin Latest Range: 0.2-1.3 mg/dL 0.2 Bili, Direct Latest Range: 0.0-0.3 mg/dL 0.1 Alk Phos Latest Range: 40-120 unit/L 78 AST Latest Range: 0-39 unit/L 14 ALT Latest Range: 0-55 unit/L 13 LDH Latest Range: 110-220 unit/L [address] Chest / Abdomen / Pelvis [...] in the left liver lobe is unchanged. No suspicious liver lesions. Spleen, pancreas and gallbladder normal. Right and left kidneys and adrenal glands are normal. No enlarged gastrohepatic, retroperitoneal, mesenteric nor portacaval lymph nodes. No ascites. Pelvis: Loops of small and large bowel are normal in caliber. No free fluid. Prominent seminal vesicles are stable. No enlarged lymph nodes. Review of osseous structures are unremarkable. Lesion #1 (left supraclavicular lymph node) ; Series# ; Image# ; Maximum Diameter (mm) ; Previous Scan: ; 2 ; 3 ; 7 x 4 ; Present Scan: ; 2 ; 3 ; 7 x 4 ; Impression Stable exam. Examination CT Neck With Contrast Clinical History Bi-dimensional measures/Do not use RECIST criteria Lymphoma s/p treatment restaging Clinical trials patient Comparison Comparison is made to the prior CT of the neck performed June 01, 2012. Technique Contrast-enhanced neck CT was performed. 110 mL of Omnipaque 350 was given IV without difficulty for the study. Findings There is no change in the left zone 3 lymph node compared with the most recent prior study. It measures approximately: 14 x 7 mm (series 2 image number 182) compared with 14 x 7 mm on the 06/01/2012 study (series 2 image number 169). There is no new lymphadenopathy. Postradiation changes are noted. Impression Stable left zone 3 lymph node compared with the prior study, markedly improved from the pre treatment study. Assessment/Plan: King has a stage II a classic Hodgkin's disease he has had a complete response and is in remission. His CT scans are fine and we'll see him back in 6 months for his next scheduled followup. At thispoint with a negative PET scan no further radiology needs to be done. We will order a CBC CMP LDH and sedimentation rate prior to return. documented in this encounter Miscellaneous Notes * Advance Care Plan Note - Juany Adams RN - 09/29/2012 2:08 PM EDT ADVANCE CARE PLANNING NOTE I. WHEN TO USE THIS FORM: This Advance Care Planning Note should be used for patients with decisional capacity who have not executed advance directives, such as a Durable Power of Wood Shop Teacher for Health Care. DETERMINATION OF CAPACITY The basis for decisional capacity entails all of the following criteria. The patient, King Lee, must be able (in a general way) to understand: ?? His condition ?? Treatment alternatives ?? Potential benefits and risks of proposed treatments/interventions The patient has the capacity to make decisions: Yes If the patient does not have decisional capacity, go no further. This form cannot be used. II. DESIGNATION OF DECISION MAKER The patient, King Lee, expresses the following preference: Designation of health care agent: The patient, King Lee, identifies the following individualto serve as a health care agent, authorized to speak for the individual in making medical treatmentdecisions in the future if he/she is unable to speak for him/herself. Name: Jess Lee Relationship to patient: , phone [phone] Alternate decision maker: Name: Moy Lee Relationship to patient: brother, phone [phone] IV: OTHERS PRESENT The following person/people were also present during the discussion. Name(s) with role or relationship to patient: No others present. V. OTHER COMMENTS Copies of [place] Advanced Directive given to King for himself and his . documented in this encounter Plan of Treatment Not on file documented as of this encounter Visit Diagnoses Diagnosis Hodgkin disease- Primary Hodgkin's disease, unspecified documented in this encounter Care Teams Hospitality Director Relationship Specialty Start Date End Date Reginald Nieto APRN [address] [place] [address] PCP - General 09/30/11 10/05/13 documented as of this encounter
--- OUTSIDE RECORDS SUMMARY | 2024-01-24 11:02 | XMS_ITS | Encounter Summary ---
Author Organization [facility] Address [facility] [place] [address] Care Team Providers Care Pan Greaser Name Role Phone Reginald Nieto APRN Primary Care Provide r Encounter Details Date Type Department Care Team (Late st Contact Info) Description 01/15/2012 Telephone Hematology [place] [phone] Eugene Vasquez MD [facility] [address] HEMATOLOGY/[place] [address] Social History Tobacco Use Types Packs/Day Years [...] encounter Miscellaneous Notes * Telephone Encounter - Eugene Vasquez MD - 01/15/2012 7:12 AM EDT ED called back. CXR, ECG was normal. CTA showed that the chest mass was now 1-2 cm, it appeared that there was distal esophagitis. The pt was given a PPI and sucrafate. The ED physican didn't mentionthrush it at the time, but as this is also possible fluconazole or nystatin could be considered. EUGENE VASQUEZ MD (Hematology and Oncology Fellow) Pager [phone] * Telephone Encounter - Eugene Vasquez MD - 01/15/2012 1:24 AM EDT PT's calls nacho stating her is having severe burning chest pain. The pt is being treated w/ ABVD cycle 4 day 2 for Hodgkin's lymphoma. They state he has had burning in his chest w/ previous cycles but never this severe. The PET-4 was negative. The pt was scheduled for a chest CT this coming week. I advised them to go to the ED for further evaluation, as this could be PNA, NV, PE, recurrent cancer. I called signout to [facility]. EUGENE VASQUEZ MD (Hematology and Oncology Fellow) Pager [phone] documented in this encounter Plan of Treatment Not on file documented as of this encounter Visit Diagnoses Not on filedocumented in this encounter Care Teams Pan Greaser Relationship Specialty Start Date End Date Reginald Nieto APRN [address] [place] [address] PCP - General 09/30/11 10/05/13 documented as of this encounter
--- OUTSIDE RECORDS SUMMARY | 2024-01-24 11:02 | XMS_ITS | Encounter Summary ---
Author Organization [facility] [place] [address] Care Team Providers Care Assistant Import Manager Name Role Phone Reginald Nieto APRN Primary Care Provide r Encounter Details Date Type Department Care Team (Late st Contact Info) Description 12/02/2012 10:46 AM EDT - 12/02/2012 11:59 PM EDT Hospital [place] [phone] Social History Tobacco Use Types Packs/Day Years [...] CHEST ABDOMEN PELVIS W CONTRAST (GENERIC) Routine 12/02/2012 1:08 PM EDT documented in this encounter Results * CT chest, abdomen, & pelvis with contrast (12/02/2012 1:08 PM EDT) Anatomical Region Laterality Modality Computed Tomogra phy 12/02/2012 1:08 PM EDT Narrative 12/02/2012 2:[address] Chest / Abdomen / Pelvis With Contrast Clinical History Bi-dimensional measures/Do not use RECIST criteria 42-year-old male with history of Hodgkin's lymphoma s/p treatment, restaging, clinical trials patient Comparison 06/01/2012, 09/26/2012. Technique Helical CT images were obtained of the chest, abdomen, and pelvis following the intravenous administration of 110 mL of Omnipaque 350. ??Multiplanar reformatted images were reviewed. Findings Chest: Unchanged biapical subpleural bullae. ??No pulmonary nodules or masses. No pneumothorax. No focal airspace consolidation. No pleural or pericardial effusions. Central airway is clear. No central pulmonary emboli. No thoracic lymphadenopathy. ?? Abdomen/pelvis: No free air. Unchanged 1.3 centimeter hypodensity within the medial segment of the left hepatic lobe, unchanged since September 2011, likely representing a benign hepatic cyst. No new hepatic lesions. Spleen, pancreas, adrenal glands, kidneys, and gallbladder are all unremarkable. ??No retroperitoneal or mesenteric lymphadenopathy. ??No free fluid. No dilated loops of bowel. No bowel wall thickening. Bladder is modestly distended with smooth contour. ??No pelvic free fluid. ??No pelvic adenopathy. Unchanged prominent seminal vesicles. No aggressive osseous lesions. ?? RECIST Table Lesion 1: left supraclavicular lymph node ?? Previous scan: Series 2, image 3, 7 x 4 millimeters ?? Current scan: Series 2 image 6, 7 x 4 millimeters. ?? Impression Stable exam. ?? Film and interpretation reviewed by the attending Procedure Note Henok Castro MD - 12/02/[address] Chest / Abdomen / Pelvis With Contrast Clinical History Bi-dimensional measures/Do not use RECIST criteria 42-year-old male with history of Hodgkin's lymphoma s/p treatment,restaging, clinical trials patient Comparison 06/01/2012, 09/26/2012. Technique Helical CT images were obtained of the chest, abdomen, and pelvisfollowing the intravenous administration of 110 mL of Omnipaque 350. Multiplanarreformatted images were reviewed. Findings Chest: Unchanged biapical subpleural bullae. No pulmonary nodules ormasses. No pneumothorax. No focal airspace consolidation. No pleural orpericardial effusions. Central airway is clear. No central pulmonary emboli. Nothoracic lymphadenopathy. Abdomen/pelvis: No free air. Unchanged 1.3 centimeter hypodensity withinthe medial segment of the left hepatic lobe, unchanged since September 2011, likely representing a benign hepatic cyst. No new hepatic lesions. Spleen,pancreas, adrenal glands, kidneys, and gallbladder are all unremarkable. No retroperitoneal or mesenteric lymphadenopathy. No free fluid. No dilatedloops of bowel. No bowel wall thickening. Bladder is modestly distended withsmooth contour. No pelvic free fluid. No pelvic adenopathy. Unchanged prominent seminal vesicles. No aggressive osseous lesions. RECIST Table Lesion 1: left supraclavicular lymph node Previous scan: Series 2, image 3, 7 x 4 millimeters Current scan: Series 2 image 6, 7 x 4 millimeters. Impression Stable exam. Film and interpretation reviewed by the attending Jay Kaur MD IMG CT ORDERABLES documented in this encounter Visit Diagnoses Not on filedocumented in this encounter Care Teams Assistant Import Manager Relationship Specialty Start Date End Date Reginald Nieto, ANDREW [address] [place] [address] PCP - General 09/30/11 10/05/13 documented as of this encounter
--- OUTSIDE RECORDS SUMMARY | 2024-01-24 11:02 | XMS_ITS | Encounter Summary ---
Author Organization [facility] [place] [address] Care Team Providers Care Lecturer In Computer Science Name Role Phone Reginald Nieto APRN Primary Care Provide r Encounter Details Date Type Department Care Team (Latest Contact Info) Description 06/01/2012 2:03 PM EDT - 06/01/2012 11:59 PM EDT Hospital Encounter [place] [phone] Jay Kaur MD [address] [place] [address] [place] [phone] Hodgkin lymphoma Discharge Disposition: Home Social History [...] as of this encounter Plan of Treatment Scheduled Orders Name Type Priority Associated Diagnoses Orde r Schedule Miscellaneous Lab request Lab Routine Hodgkin lymphoma 1 Occurrences starting 06/01/2012 documented as of this encounter Visit Diagnoses Diagnosis Hodgkin lymphoma Hodgkin's disease, unspecified documented in this encounter Care Teams Lecturer In Computer Science Relationship Specialty Start Date End Date Reginald Nieto APRN [address] [place] [address] PCP - General 09/30/11 10/05/13 documented as of this encounter
--- OUTSIDE RECORDS SUMMARY | 2024-01-24 11:02 | XMS_ITS | Encounter Summary ---
Author Organization [facility] [place] [address] Care Team Providers Care Director Of Guidance Name Role Phone Reginald Nieto APRN Primary Care Provide r Reason for Visit * Reason Comments Lymphoma Encounter Details Date Type Department Care Team (Late st Contact Info) Description 03/09/2012 2:00 PM EST Follow-Up Hematology Oncology at [address] [phone] Jay Kaur MD [address] [place] [phone] Hodgkin lymphoma (Primary Dx) Discharge Disposition: Home Social [...] Sign Reading Time Taken Comments Blood Pressure 126/69 03/09/2012 1:48 PM EST Pulse 84 03/09/2012 1:48 PM EST Temperature 36.8 ??C (98.2 ??F) 03/09/2012 1:48 PM ES T Respiratory Rate 16 03/09/2012 1:48 PM EST Oxygen Saturation 99% 03/09/2012 1:48 PM EST Inhaled Oxygen Concentration - - Weight 63.7 kg (140 lb 8 oz) 03/09/2012 1:48 PM EST Height 175.9 cm (5' 9.25) 03/09/2012 1:48 PM ES T Body Mass Index 20.6 03/09/2012 1:48 PM EST documented in this encounter Progress Notes * Jay Kaur MD - 03/09/2012 2:44 PM EST Problems: Classic Hodgkin's disease PET scan shows stage IIA disease. 36 x 25 mm node in the left neck +4 x 5mm node in the anterior mediastinum on the left side [id number], [facility]. Patient's PET scan showed complete response after 2 months of therapy. Per protocol patient scheduled for 4 cycles of ABVD. After cycle 3 patient with persistent cough and shortness of breath, CT negative but decision made to discontinue bleomycin for remaining treatment. Subjective: King comes in today for his first posttreatment followup with restaging per protocol. He is starting to be normal again and is getting most of his strength back. He would rate his recovery around 90%. Other than some dry skin on his hands he is not having any particular problem in his breathing is fine with no further coughing. He would like to go back to work at the first of the year full-timewithout restriction and I would agree with that request. All of his studies are reviewed with him today including lab CT scans PET scans and pulmonary studies. Review of Systems Constitutional: Negative for fever, [...] Negative. Neurological: Negative. Hematological: Negative for adenopathy. I would rate his performance status at 100% His alopecia is resolving Head: Normocephalic, without obvious abnormality, atraumatic he [...] nodes normal Neurologic: Normal Lab is reviewed. CBC is completely normal as is his CMP with normal liver function studies. Examination 03/07/12 PET/CT STANDARD (Skull base to Mid-thigh) Technique Procedure: Following IV injection of 39-rqgbiy-3-deoxyglucose (FDG) and a standard uptake period, a [...] changes have resolved. Impression No active lymphoma. Examination 03/07/12 CT Chest / Abdomen / Pelvis With Contrast Clinical History BI DIMENSIONAL MEASUREMENTS LYMPHOMA PORTOCOL PT /P 4 CYCLES OF TREATMENT Comparison CT of the chest, abdomen pelvis dated December 10, [address] dated October 02, 2011. Technique CT of the chest, abdomen and pelvis following the administration of 110 cc of Omnipaque 350 and enteric contrast. Findings Chest: [...] hepatic lesions. No intra- or extrahepatic ductal dilatation. The gallbladder, pancreas, spleen, adrenal glands and kidneys appear normal. The small and large bowel are normal in course and caliber with no evidence of wall thickening or edema. No abdominal lymphadenopathy or free fluid. Pelvis: The bladder is distended, but appears normal. The prostate and seminal vesicles appear normal. No pelvic lymphadenopathy or free fluid. Lesions: COMPARISON DATE (S): Previous Scan Date (s): CT chest, abdomen, and pelvis dated December 10, 2011. Current Scan Date: CT chest, abdomen, and pelvis dated March 07, 2012. LESION 1 (left supraclavicular lymph node): Previous Scan: Series #5, image #2, maximum diameter 7 mm x 9 mm Present Scan: Series #3, image #3, maximum diameter 6 mm x 9 mm Impression 1. Slight interval decrease in size of the indicator left supraclavicular lymph node. 2. No new masses or lymphadenopathy. 3. Stable right lower lobe pulmonary nodule. Examination 03/07/12 CT Neck With Contrast Clinical History BI DIMENSIONAL MEASUREMENTS LYMPHOMA PORTOCOL PT /P 4 CYCL[address] OF [address]REATMENT [address] CT neck dated 12/10/[address] of the neck with the use of intravenous contrast. 110 cc of Omnipaque 350 were intravenously administered. Findings The previously seen left level 3 lymph node now measures 1.7 x 8 mm, allowing for differences in measurement, unchanged compared to the previous study. There is no new adenopathy. No pathologically enlarged lymph nodes are seen on the right. There is no aggressive osseous lesions. There is no soft tissue mass. The visualized thyroid is unremarkable in appearance. Noncalcified atherosclerotic plaque is present at the left carotid bifurcation slightly increased from prior examination, however without significant narrowing. Impression Stable size of left-sided level 3 lymph node. No new lymph nodes. No suspicious osseous abnormalities. - Examination 03/07/12 CHEST ROUTINE 2 VIEWS Clinical History Lymphoma, s/p 4 cycles of treatment: restaging Comparison CT chest dated January 15, 2012. Technique PA and lateral radiographs of the chest were obtained. Findings The lungs are clear bilaterally. The cardiomediastinal silhouette is midline. The osseous and soft tissue structures are unchanged. Impression No acute cardiopulmonary process. Full pulmonary function tests are reviewed and completely normal with normal diffusion capacities. Assessment/Plan: King has a stage II a classic Hodgkin's disease he has had a complete response and is in remission. There is actually nothing of concern on any of his radiologic studies, pulmonary function tests, or lab work today. He is feeling well and is recovering nicely from treatment and is clear to go back to work without restriction on March 23. We filled out forms for him in that regard. His next followup is due in 3 months with lab and a CT scan. We will order the lab with Protocol nursing taking care of ordering the radiologic studies. He knows to call if problems develop in the interim. documented in this encounter Procedure Notes * Provider, Scanning - 06/07/2012 1:02 AM EDTAssociated Order(s): SCAN DOC: LAB * Provider, Scanning - 03/28/2012 3:56 PM ESTAssociated Order(s): SCAN DOC: SURGICAL PATHOLOGY * Provider, Scanning - 03/28/2012 3:07 PM ESTAssociated Order(s): SCAN DOC: SURGICAL PATHOLOGY * Provider, Scanning - 03/28/2012 3:06 PM ESTAssociated Order(s): SCAN DOC: ULTRASOUND documented in this encounter Plan of Treatment Scheduled Orders Name Type Priority Associated Diagnoses Orde r Schedule CBC (with Diff) Lab Routine Hodgkin lymphoma Expected: 06/09/2012 (Approximate), Expires: 03/09/2013 Comprehensive metabolic panel (non-fasting) Lab Routine Hodgkin lymphoma Expected: 06/09/2012 (Approximate), Expires: 03/09/2013 Lactate Dehydrogenase Lab Routine Hodgkin lymphoma Expected: 06/09/2012 (Approximate), Expires: 03/09/2013 Sedimentation rate Lab Routine Hodgkin lymphoma Expected: 06/09/2012 (Approximate), Expires: 03/09/2013 documented as of this encounter Procedures Procedure Name Priority Date/Time Associated Diagnosis Comments LAB SCAN 06/07/2012 1:02 AM EDT SURGICAL PATHOLOGY SCAN 03/28/2012 3:56 PM EST SURGICAL PATHOLOGY SCAN 03/28/2012 3:07 PM EST ULTRASOUND SCAN (SCAN) 03/28/2012 3:06 PM EST documented in this encounter Results * SCAN DOC: LAB (06/07/2012 1:02 AM EDT) Narrative 06/07/2012 1:02 AM EDT Procedure Note Provider, Scanning - 06/07/2012 1:02 AM EDT Scanning Provider MEDIA MGR SCAN EXT O RDR/RSLT * SCAN DOC: SURGICAL PATHOLOGY (03/28/2012 3:56 PM EST) Narrative Transcriptions Provider, Scanning - 03/28/2012 3:56 PM EST Scanning Provider MEDIA MGR SCAN EXT O RDR/RSLT * SCAN DOC: SURGICAL PATHOLOGY (03/28/2012 3:07 PM EST) Narrative Transcriptions Provider, Scanning - 03/28/2012 3:07 PM EST Scanning Provider MEDIA MGR SCAN EXT O RDR/RSLT * SCAN DOC: ULTRASOUND (03/28/2012 3:06 PM EST) Anatomical Region Laterality Modality Other Narrative Transcriptions Provider, Scanning - 03/28/2012 3:06 PM EST Scanning Provider MEDIA MGR SCAN EXT O RDR/RSLT documented in this encounter Visit Diagnoses Diagnosis Hodgkin lymphoma- Primary Hodgkin's disease, unspecified documented in this encounter Care Teams Director Of Guidance Relationship Specialty Start Date End Date Reginald Nieto APRN [address] [place] [address] PCP - General 09/30/11 10/05/13 documented as of this encounter
--- OUTSIDE RECORDS SUMMARY | 2024-01-24 11:02 | XMS_ITS | Encounter Summary ---
Author Organization [facility] [place] [address] Care Team Providers Care Reference Library Assistant Name Role Phone Reginald Nieto APRN Primary Care Provide r Encounter Details Date Type Department Care Team (Latest Contact Info) Description 03/07/2012 8:12 AM EST - 03/07/2012 11:59 PM [facility] Hospital [place] [phone] Jay Kaur MD [address] [place] [address] [place], [place] [address] Hodgkin's disease Discharge Disposition: Home Social History [...] Procedure Name Priority Date/Time Associated Diagnosis Comments DIFFERENTIAL, AUTOMATED Routine 03/07/2012 8:20 AM EST SEDIMENTATION RATE Routine 03/07/2012 8: 20 AM EST Hodgkin's disease CBC (WITH DIFF) Routine 03/07/2012 8:20 AM EST Hodgkin's disease COMPREHENSIVE METABOLIC PANEL Routine 03/07/2012 8:20 AM EST Hodgkin's disease documented in this encounter Results * (ABNORMAL) Differential, Automated (03/07/2012 8:20 AM EST) Neutrophil % 72.3(H) 34.0 - 71.0 % CERNER MILLENNIUM Neutrophil Absolute 4.74 1.50 - 6.30 x10(3)/mc L CERNER MILLENNIUM Lymph % 16.5(L) 19.0 - 53.0 % CERNER MILLENNIUM Lymphocytes Abs 1.1 1.0 - 3.6 x10(3)/mc L CERNER MILLENNIUM Monocyte % 7.5 4.0 - 13.0 % CERNER MILLENNIUM Monocyte Abs 0.5 0.2 - 1.0 x10(3)/mc L CERNER MILLENNIUM Eos % 3.2 0.0 - 7.0 % CERNER MILLENNIUM Eosinophils Abs 0.2 0.0 - 0.5 x10(3)/mc L CERNER MILLENNIUM Basophil % 0.3 0.0 - 2.0 % CERNER MILLENNIUM Baso Absolute 0.0 0.0 - 0.2 x10(3)/mc L CERNER MILLENNIUM Immature Gran % 0.20 0.00 - 0.66 % CERNER MILLENNIUM Comment: Immature granulocytes(IG's)percentage and absolute count will include metamyelocytes, myelocytes, and promyelocytes. Blood smears from CBCs yielding IG's will be scanned manually for concordance. If this scan disagrees with the automated IG or if promyelocytes are noted, a manual differential will be performed. Immature Gran Absolute 0.01 0.00 - 0.05 x10(3)/mc L CERNER MILLENNIUM Blood specimen (specimen) 03/07/2012 8:20 AM EST 03/07/2012 8:30 AM EST Jay Kaur MD HEMATOLOGY ORDERABLE S Performing Organization Address City/[facility] Co de Phone Number [facility] * Sedimentation rate (03/07/2012 8:20 AM EST) Sedimentation Rate Automated 3 0 - 15 mm/hr [facility] MILLENNIUM Blood specimen (specimen) 03/07/2012 8:20 AM EST 03/07/2012 8:30 AM EST Narrative Resulting Agency Comment Spec In Lab Jay Kaur MD HEMATOLOGY ORDERABLE S Performing Organization Address City/[facility] Co de Phone Number [facility] * (ABNORMAL) Comprehensive metabolic panel (non-fasting) (03/07/2012 8:20 AM EST) Glucose 100 60 - 199 mg/dL [facility] MILLENNIUM Comment:Diabetes: >=200 mg/d L plus symptoms Blood Urea Nitrogen 10 10 - 20 mg/dL CERNER MILLENNIUM Creatinine 0.78(L) 0.80 - 1.50 mg/dL CERNER MILLENNIUM Comment: Please note that the pediatric reference intervals supplied above were not validated at [facility]. Results from pediatric patients should be interpreted in conjunction to the patient's age, height and muscle mass. Sodium 140 135 - 145 mmol/L CERNER MILLENNIUM Potassium 4.4 3.5 - 5.0 mmol/L CERNER MILLENNIUM Comment: Please note: ??Patients with WBC >100,000 may have falsely elevated Potassium levels. ??For accurate Potassium quantification in these patients send serum separator tube (gold top) for subsequent determinations. ??Contact the Clinical Chemistry Laboratory if there are any questions. Chloride 106 98 - 107 mmol/L CERNER MILLENNIUM Carbon Dioxide 29 22 - 31 mmol/L CERNER MILLENNIUM Anion Gap 5 5 - 15 mmol/L CERNER MILLENNIUM Calcium 9.1 8.5 - 10.5 mg/dL CERNER MILLENNIUM Protein, Total 6.2(L) 6.4 - 8.3 gm/dL CERNER MILLENNIUM Albumin 4.2 3.2 - 5.2 gm/dL CERNER MILLENNIUM Aspartate Aminotransferase 12 0 - 39 unit/L CERNER MILLENNIUM Alanine Aminotransferase 14 0 - 55 unit/L CERNER MILLENNIUM Alkaline Phosphatase 66 40 - 120 unit/L CERNER MILLENNIUM Bilirubin, Total 0.2 0.2 - 1.3 mg/dL CERNER MILLENNIUM Bilirubin, Direct 0.1 0.0 - 0.3 mg/dL CERNER MILLENNIUM Est Glomerular Filtration Rate >60 >=60 CERNER MILLENNIUM Comment: The National Kidney Disease Education Program (NKDEP) has recommended all laboratories report estimated GFR (eGFR) along with plasma creatinine measurements to assist you with recognition of early kidney disease. Caveats: ??Plasma creatinine should be at steady-state (unchanged within the past week). For patients multiply eGFR by 1.2. The MDRD equation was developed using patients between the ages of 18 and 70 years. ?? The MDRD equation has not been validated for patients < 18 years of age and should not be used to assess renal function in the pediatric population. ??The MDRD eGFR equation will also overestimate the true GFR of patients above the age of 70. ??This overestimation is variable but increases with age. At present, NKDEP does NOT recommend using the MDRD equation for drug dosing purposes and pharmacists should continue to use their current dosing methods. In addition, numerical eGFR values greater than 60 ml/min/1.73 square meters should be treated as > 60, and not an exact number due to greater inaccuracies at these higher values. Per NKDEP, they classify normal renal function as any GFR >60ml/min/1.73 square meters; chronic kidney disease when GFR <60, and renal failure when GFR <15. ??This calculation may not be valid for patients with atypical muscle mass (very lean or obese), acute renal failure, and in patients with diabetic kidney disease. References: http://nkdep.nih.gov/resources/NKDEP_Suggestn4Labs_0606_508.pdf http://www.kidney.org/professionals/kls/pdf/faq_gfr.pdf Yinka K, Liza NA, Blu [place], [place] TS, Porfirio AD, Severiano BIJAN. Relative performance of the MDRD and CKD-EPI equations for estimating glomerular filtration rate among patients with varied clinical presentations. Clin J Am Soc Nephrol;6:1963-72. Blood specimen (specimen) 03/07/2012 8:20 AM EST 03/07/2012 8:30 AM EST Narrative Resulting Agency Comment Spec In Lab Jay Kaur MD CHEMISTRY ORDERABLES [facility] * (ABNORMAL) CBC (with Diff) (03/07/2012 8:20 AM EST) White Blood Cell 6.6 4.0 - 10.0 x10(3)/mc L CERNER MILLENNIUM Red Blood Cell 4.84 4.63 - 6.08 x10(6)/mc L CERNER MILLENNIUM Hemoglobin 14.3 13.7 - 17.5 gm/dL CERNER MILLENNIUM Hematocrit 44.5 40.0 - 51.0 % CERNER MILLENNIUM Mean Cell Volume 91.9 79.0 - 92.0 fL CERNER MILLENNIUM Mean Cell Hemoglobin 29.5 25.6 - 32.2 pg CERNER MILLENNIUM Mean Cell Hemoglobin Concentration 32.1 32.0 - 36.5 gm/dL CERNER MILLENNIUM Platelet 171 145 - 370 x10(3)/mc L CERNER MILLENNIUM RDW Standard Deviation 47.1(H) 35.0 - 46.0 fL CERNER MILLENNIUM RDW coefficient of variation 13.9 10.9 - 14.4 % CERNER MILLENNIUM Mean Platelet Volume 10.5 9.0 - 12.0 fL CERNER MILLENNIUM Blood specimen (specimen) 03/07/2012 8:20 AM EST 03/07/2012 8:30 AM EST Narrative Resulting Agency Comment Spec In Lab Jay Kaur MD HEMATOLOGY ORDERABLE S Performing Organization Address City/State/[facility] Co nd Phone Number [facility] documented in this encounter Visit Diagnoses Diagnosis Hodgkin's disease Hodgkin's disease, unspecified documented in this encounter Care Teams Reference Library Assistant Relationship Specialty Start Date End Date Reginald Nieto APRN [address] [place] [address] PCP - General 09/30/11 10/05/13 documented as of this encounter
--- OUTSIDE RECORDS SUMMARY | 2024-01-24 11:02 | XMS_ITS | Encounter Summary ---
Author Organization [facility] [place] [address] Care Team Providers Care Signals Collection Technician Name Role Phone Reginald Nieto APRN Primary Care Provide r Encounter Details Date Type Department Care Team (Late st Contact Info) Description 03/07/2012 7:27 AM EST - 03/07/2012 8:01 AM [facility] Hospital [place] [phone] Social History Tobacco Use Types Packs/Day Years [...] Procedure Name Priority Date/Time Associated Diagnosis Comments POCT GLUCOSE Routine 03/07/2012 10:[address] NECK SOFT TISSUE W CONTRAST Routine 03/07/2012 9:53 AM EST documented in this encounter Results * POCT Glucose (03/07/2012 10:31 AM EST) Glucose, POC 86 60 - 199 mg/dL PHILIPPE CAICEDO Comment: Supplemental ranges: <110 mg/dL before meals <200 mg/dL all other times of the day Blood specimen (specimen) 03/07/2012 10:31 AM EST 03/07/2012 10:31 AM EST Bro Tiwari MD POINT OF CARE TEST O RDERABLES [facility] Splash * CT neck soft tissue with contrast (03/07/2012 9:53 AM EST) Anatomical Region Laterality Modality Neck, Head Computed Tomogra phy 03/07/2012 9:53 AM EST Narrative 03/07/2012 4:[address] Neck With Contrast Clinical History BI DIMENSIONAL MEASUREMENTS LYMPHOMA PORTOCOL PT ??/P 4 CYCLES OF TREATMENT Comparison CT neck dated 12/10/11 ?? Technique CT of the neck with the use of intravenous contrast. 110 cc of Omnipaque 350 were intravenously administered. ?? Findings The previously seen left level 3 lymph node now measures 1.7 x 8 mm, allowing for differences in measurement, unchanged compared to the previous study. There is no new adenopathy. ??No pathologically enlarged lymph nodes are seen on the right. There is no aggressive osseous lesions. ??There is no soft tissue mass. The visualized thyroid is unremarkable in appearance. Noncalcified atherosclerotic plaque is present at the left carotid bifurcation slightly increased from prior examination, however without significant narrowing. ?? Impression Stable size of left-sided level 3 lymph node. No new lymph nodes. Film and interpretation reviewed by the attending Procedure Note Jay Monge MD - 03/07/[address] Neck With Contrast Clinical History BI DIMENSIONAL MEASUREMENTS LYMPHOMA PORTOCOL PT /P 4 CYCLES OF TREATMENT Comparison CT neck dated 12/10/[address] of the neck with the use of intravenous contrast. 110 cc of Gniscwyui390 were intravenously administered. Findings The previously seen left level 3 lymph node now measures 1.7 x 8 mm,allowing for differences in measurement, unchanged compared to the previous study.There is no new adenopathy. No pathologically enlarged lymph nodes are seen onthe right. There is no aggressive osseous lesions. There is no soft tissuemass. The visualized thyroid is unremarkable in appearance. Noncalcified atherosclerotic plaque is present at the left carotid bifurcation slightly increased from prior examination, however without significant narrowing. Impression Stable size of left-sided level 3 lymph node. No new lymph nodes. Film and interpretation reviewed by the attending Jay Kaur MD IMG CT ORDERABLES documented in this encounter Visit Diagnoses Not on filedocumented in this encounter Administered Medications Inactive Administered Medications - up to 3 most recent administrations Medication Order MAR Action Action Date Dose Rate Site iohexol (OMNIPAQUE) 350 mg iodine/mL injection 17,500 mg 17,500 mg (50 mL), Oral, ONCE PRN, 1 dose, Starting on Wed03/07/12 at 0944, Until Wed03/07/12 at 0700, Per Protocol, Routine Given 03/07/2012 7:00 AM EST 17,500 mg iohexol (OMNIPAQUE) 350 mg iodine/mL injection 38,500 mg 38,500 mg (110 mL), Intravenous, ONCE PRN, 1 dose, Starting on Wed03/07/12 at 0944, Until Wed03/07/12 at 0944, Per Protocol, Routine Given 03/07/2012 9:44 AM EST 38,500 mg documented in this encounter Care Teams Signals Collection Technician Relationship Specialty Start Date End Date Reginald Nieto APRN [address] [place] [address] PCP - General 7/11/12 7/17/14 documented as of this encounter
--- OUTSIDE RECORDS SUMMARY | 2024-01-24 11:02 | XMS_ITS | Encounter Summary ---
Author Organization [facility] Address [facility] [place] [address] Care Team Providers Care Friction Saw Operator Name Role Phone Reginald Nieto APRN Primary Care Provide r Encounter Details Date Type Department Care Team (Late st Contact Info) Description 01/13/2012 9:30 AM EDT Follow-Up Hematology Oncology at [address] [phone] Josh Gonzalez MD [facility] HEMATOLOGY/[place] [address] Lymphoma (Primary Dx); Hodgkin's disease Discharge Disposition: Home [...] Sign Reading Time Taken Comments Blood Pressure 96/52 01/13/2012 9:28 AM EDT Pulse 101 01/13/2012 9:28 AM EDT Temperature 36.8 ??C (98.2 ??F) 01/13/2012 9:28 AM ED T Respiratory Rate 18 01/13/2012 9:28 AM EDT Oxygen Saturation 100% 01/13/2012 9:28 AM EDT Inhaled Oxygen Concentration - - Weight 63 kg (138 lb 14.2 oz) 01/13/2012 9:28 AM EDT Height 175.9 cm (5' 9.25) 01/13/2012 9:28 AM ED T Body Mass Index 20.36 01/13/2012 9:28 AM EDT documented in this encounter Progress Notes * Josh Gonzalez MD - 01/13/2012 11:19 AM EDT Problem list #1 Hodgkin's disease A histology: Classic Hodgkin's disease B PET scan shows stage IIA disease. 36 x 25 mm node in the left neck +4 x 5 mm node in the anteriormediastinum on the left side C. started chemotherapy with the ABVD on protocol [id number] [id number], October 20, 2011 #2 smoker Medication list Ibuprofen, coenzyme Q, Klonopin and some other vitamins Zoloft History of present illness This is a previously healthy 40-year-old male smoker who woke up one morning with a large grapefruit size mass on the left side of his neck. He said came up suddenly, literally overnight. Since then his been fluctuating coming and going in size but never disappearing. Has not had much no constitutional symptoms except fatigue. It's not severe he is able to work but is much more tired than he used to be. He denies fevers or sweats or weight loss or change in appetite or skin rash or change in mental status. The PET scan shows the jaci mass which is seen on physical exam however is only 36 x 25 mm, substantially smaller what is seen on exam indicating a substantial inflammatory component to the mass. There is in addition a small 4 x 5 mm node in the left anterior chest area most consistent with his lymphoma. His excisional biopsy confirmed classic histology of Hodgkin's disease with Sebastián- Vicki cells. Interval history This be his seventh dose of ABVD, day one of cycle #4. He's developed a cough and had some fevers which have resolved. Chest x-ray is clear and he is not hypoxic but nevertheless we'll hold bleomycinhis last 2 doses and get a CT scan of the chest. Other than that his about the same. Becoming more fatigued from the chemotherapy neuropathy is not really changed. He does have some skin changes on his hands are probably due to the bleomycin Adriamycin but not concerning.. . Review of systems He has now developed fevers and the cough. He reports today that the day after he got his chemotherapy 2 weeks ago he began running fevers over 100?? and that persisted for about 4 days and then he developed his chronic cough. He coughed a little bit during exam today but otherwise his exam is completely normal. The fevers are now gone. There is concern of course about bleomycin toxicity particularly in somebody who smokes see discussion below Constitutional the prior nausea is resolved with the Aloxi premed. However he is complaining of numbness in his feet. He states this is relieved when he takes of his socks. He also continues to smoke.. Negative for sweats or fevers or weight loss or change in appetite. Respiratory: negative for shortness of breath, coughing, or hemoptysis. Cardiac: negative for chest pain, swelling, shortness of breath. GI: negative for vomiting, nausea, diarrhea, pain. Neuro: Negative for seizures, weakness, positive for numbness and tingling see above headaches, change in vision, insomnia, anxiety or depression Extremities: Negative for swelling or cyanosis or pain. Skin: Negative for rash, petechiae, itching Extremities negative for swelling, cyanosis, or clubbing Physical exam Vital signs reviewed There is no change in his physical exam. Lungs clear, no wheezes, rales or rhonchi Cardiac normal rate and rhythm, no murmurs, rubs, gallops, no JVD, can lie flat on the exam table. Abdomen soft positive bowel sounds, nontender, no rebound or guarding, no hepatosplenomegaly Neuro normal affect, oriented x3, gives a good history, cranial nerves intact, gait normal strengthnormal, sensation normal to pinprick on both hands and all digits Eyes pupils equal, round, react to light, extraocular movements intact, sclerae clear Skin warm and dry, he has some areas of hyperpigmentation on the palms and fingertips and his skin is getting a bit dry. I presumably this is secondary to chemotherapy possibly the bleomycin and Adriamycin. . Lymph nodes Remains without any detectable adenopathy. Past medical history Negative for any chronic illnesses. He has had issues with depression and apparently he has fertility issues. He does smoke. Family history Negative for cancer. Both his parents are still alive and well his father does have some heart disease. Social history He is , he does not have children. He works at [employer] in [place]. Note that he does smoke. Labs White count 8.5 hemoglobin 12.5 platelets 241 Calcium 8.5 Creatinine 0.8 total protein 6.3 albumin 3.7 Alkaline phosphatase 1:[address] Chest x-ray today: Clear no sign of infiltrate or pathology PET scan from last week: Negative. Complete resolution of prior disease in neck and mediastinum Assessment This will be his seventh dose of ABVD, day one of cycle #4 for a total planned of 4 cycles. He willreceive 2 more doses after today. Note that he is PET negative after 2 cycles and per protocol he is randomized based on the negativePET to a total of 4 cycles of ABVD. This will be the day one of cycle #4. He should complete all his chemotherapy on January 26. Note he will not receive bleomycin with a chemotherapy and cycle #4 because of fever and coughing and concern of possible bleomycin lung toxicity. Also Decadron 20 mg be added as a premed Adverse events: Possible bleomycin lung toxicity After his last dose of chemotherapy he began running fevers within 24 hours and persisted for about4 days and since then he's had a chronic cough. He did not call about the fever we did not know about this delay came today. Chest x-ray done today is clear but nevertheless we'll stop the bleomycin and get a CT scan of his chest in [place]. We'll also add Decadron as a premed to his chemotherapy as there is some reason to believe it may help if there is bleomycin lung toxicity. Note that he is not hypoxic and his physical exam is normal. His O2 saturations 100% on room air. Neuropathy: Grade 1, does not interfere with ADLs nor interrupt his sleep. This is from Velban chemotherapy. This is unchanged from last cycle Nausea This is from his chemotherapy . This continues and a little worse this cycle and had been so we'll try adding Decadron 20 mg IV he was premeds. Plan #1 day one cycle #4 ABVD but we'll hold bleomycin for the last 2 doses due to possible pulmonary toxicity #2 CT of the chest in [place] #3 add Decadron 20 mg IV to the chemotherapy premeds #4 we'll finish 4 cycles of ABVD in 2 weeks per protocol This note was created using ticketscript voice recognition software. It was reviewed for major content. However, there may be multiple small discrepancies and errors due to the voice recognition aspects of the software. documented in this encounter Procedure Notes * Provider, Scanning - 01/15/2012 8:27 AM EDTAssociated Order(s): SCAN DOC: CHEMOTHERAPY documented in this encounter Plan of Treatment Not on file documented as of this encounter Procedures Procedure Name Priority Date/Time Associated Diagnosis Comments CHEMOTHERAPY SCAN 01/15/2012 8:2 7 AM EDT documented in this encounter Results * SCAN DOC: CHEMOTHERAPY (01/15/2012 8:27 AM EDT) Narrative 01/15/2012 8:27 AM EDT Procedure Note Provider, Scanning - 01/15/2012 8:27 AM EDT Scanning Provider MEDIA MGR SCAN EXT O RDR/RSLT documented in this encounter Visit Diagnoses Diagnosis Lymphoma- Primary Other malignant lymphomas, unspecified site, extranodal and solid organ sites Hodgkin's disease Hodgkin's disease, unspecified documented in this encounter Care Teams Friction Saw Operator Relationship Specialty Start Date End Date Reginald Nieto, FURNACE OPERATOR AND TENDER [address] [place] [address] PCP - General 09/30/11 10/05/13 documented as of this encounter
--- OUTSIDE RECORDS SUMMARY | 2024-01-24 11:02 | XMS_ITS | Encounter Summary ---
Author Organization [facility] [place] [place] [address] Care Team Providers Care Cellular Equipment Repairer Name Role Phone Reginald Nieto APRN Primary Care Provide r Encounter Details Date Type Department Care Team (Latest Contact Info) Description 09/26/2012 12:14 PM EDT - 09/26/2012 11:59 PM EDT Hospital [place] [id number] Hodgkin's disease, unspecified Social History Tobacco Use Types Packs/Day Years [...] CT NECK SOFT TISSUE W CONTRAST Routine 09/26/2012 2:54 PM EDT Hodgkin's disease, unspecified documented in this encounter Results * CT neck soft tissue with contrast (09/26/2012 2:54 PM EDT) Anatomical Region Laterality Modality Neck, Head Computed Tomogra phy 09/26/2012 2:54 PM EDT Narrative 09/26/2012 3:[address] Neck With Contrast Clinical History Bi-dimensional measures/Do not use RECIST criteria Lymphoma ?? s/p treatment ?? restaging Clinical trials patient Comparison Comparison is made to the prior CT of the neck performed June 01, 2012. Technique Contrast-enhanced neck CT was performed. ??110 mL of Omnipaque 350 was given IV without difficulty for the study. Findings There is no change in the left zone 3 lymph node compared with the most recent prior study. ?? It measures approximately: 14 x 7 mm (series 2 image number 182) compared with ?? 14 x 7 mm on the 06/01/2012 study (series 2 image number 169). There is no new lymphadenopathy. Postradiation changes are noted. Impression Stable left zone 3 lymph node compared with the prior study, markedly improved from the pre treatment study. Procedure Note Jose Raul Amezquita MD - 09/26/[address] Neck With Contrast Clinical History Bi-dimensional measures/Do not use RECIST criteria Lymphoma s/p treatment restaging Clinical trials patient Comparison Comparison is made to the prior CT of the neck performed June 01, 2012. Technique Contrast-enhanced neck CT was performed. 110 mL of Omnipaque 350 wasgiven IV without difficulty for the study. Findings There is no change in the left zone 3 lymph node compared with the mostrecent prior study. It measures approximately: 14 x 7 mm (series 2 image number 182) compared with 14 x 7 mm on the 06/01/2012 study (series 2 image number 169). There is no new lymphadenopathy. Postradiation changes are noted. Impression Stable left zone 3 lymph node compared with the prior study, markedlyimproved from the pre treatment study. Jay Kaur MD IMG CT ORDERABLES documented in this encounter Visit Diagnoses Diagnosis Hodgkin's disease, unspecified(201.90) Hodgkin's disease, unspecified documented in this encounter Care Teams Cellular Equipment Repairer Relationship Specialty Start Date End Date Reginald Nieto APRN [address] [place] [address] PCP - General 09/30/11 10/05/13 documented as of this encounter
--- OUTSIDE RECORDS SUMMARY | 2024-01-24 11:02 | XMS_ITS | Encounter Summary ---
Author Organization [facility] Address [facility] [place] [address] Care Team Providers Care Broadcast Technician Name Role Phone Reginald Nieto APRN Primary Care Provide r Reason for Visit * Reason Comments Follow-up Encounter Details Date Type Department Care Team (Late st Contact Info) Description 12/30/2011 9:30 AM EDT Follow-Up Hematology Oncology at [address] [phone] Josh Gonzalez MD [facility] [place]ATOLOGY/[place] [address] Hodgkin's lymphoma (Primary Dx) Discharge Disposition: Home [...] Sign Reading Time Taken Comments Blood Pressure 106/68 12/30/2011 9:36 AM EDT Pulse 91 12/30/2011 9:36 AM EDT Temperature 36.9 ??C (98.4 ??F) 12/30/2011 9:36 AM ED T Respiratory Rate 18 12/30/2011 9:36 AM EDT Oxygen Saturation 99% 12/30/2011 9:36 AM EDT Inhaled Oxygen Concentration - - Weight 64 kg (141 lb 1.5 oz) 12/30/2011 9:36 AM EDT Height 175.9 cm (5' 9.25) 12/30/2011 9:36 AM ED T Body Mass Index 20.68 12/30/2011 9:36 AM EDT documented in this encounter Progress Notes * Josh Gonzalez MD - 12/30/2011 10:05 AM EDT Problem list #1 Hodgkin's disease A histology: Classic Hodgkin's disease B PET scan shows stage IIA disease. 36 x 25 mm node in the left neck +4 x 5 mm node in the anteriormediastinum on the left side C. started chemotherapy with the ABVD on protocol CALGB [id number], October 20, 2011 #2 smoker Medication list [...] with Sebastián- Vicki cells. Interval history This is day 15 of cycle #3, his sixth dose of ABVD. Has been no interval change. The neuropathy is unchanged. He continues to work half days. He finds that he takes his socks off the numbness seems to go away. The not in this is mainly isolated his feet with some less severe numbness in his fingertips on both hands. He feels that the neuropathy is no different now than it was 2-4 weeks ago. Edin is a side effect of the chemotherapy mainly the Velban. . Review of systems Unchanged from last visit main problem is persistent neuropathy which he feels is stable and has not changed in the past 2 doses Constitutional the prior nausea is resolved with [...] intact, sclerae clear Skin warm and dry, no rashes, no cyanosis he does have 2 large tattoos one on each forearm . Lymph nodes Remains without any detectable [...] does not have children. He works at [employer] in [place]. Note that he does smoke. Labs White count 14 hemoglobin 13.4 platelets 237 Creatinine 0.8 BUN 7 Calcium 8.5 albumin 3.9 Total bili 0.26 Alkaline phosphatase 135 AST 17 ALT 33 Potassium 3.8 PET scan from last week: Negative. Complete resolution of prior disease in neck and mediastinum Assessment This will be his sixth dose of ABVD, day 15 of cycle #3 for a total planned of 4 cycles. He will receive 2 more doses after today. Note that he is PET negative after 2 cycles and per protocol he is randomized based on the negativePET to a total of 4 cycles of ABVD. This will be the end of cycle #3. He should complete all his chemotherapy on January 26. The only real toxicity he's experienced is the neuropathy. He's had some mild nausea but it's almost gone now with this last cycle. This last cycle he had more nausea than the prior wants. No real vomiting but he gets a gagging reflex. Advised him to try using Ativan and Compazine in the morning when he gets up before he even begins to its see if that helps. Some of this is anticipatory as manifested by some nausea just coming into the office today before we did anything. Adverse events: None other than expected chemotherapy toxicity of neutropenia and neuropathy in his feet. All are secondary to ABVD chemotherapy Neuropathy: Grade 1, does not interfere with ADLs nor interrupt his sleep. This is from Velban chemotherapy. This is unchanged from last cycle Nausea This is from his chemotherapy . Significantly less now that he's add emend added to the Aloxi, there's been no vomiting and is able to eat even the day after chemotherapy. Grade 1 at most. He is experiencing some anticipatory nausea without vomiting, just driving here to the office. Advised him to try Ativan prior to coming here. I will give him IV Ativan today with the chemotherapy. Plan #1 day 15 cycle #3 of ABVD today #2 return in 2 weeks for day one of cycle #4 #3 continue Neulasta 4 mg on day 2 after chemotherapy #4 see me in 2 weeks with a CBC and CMP This note was created using [email or web address] voice recognition software. It was reviewed for major content. However, there may be multiple small discrepancies and errors due to the voice recognition aspects of the software. documented in this encounter Procedure Notes * Provider, Scanning - 12/30/2011 12:35 PM EDTAssociated Order(s): SCAN DOC: LAB documented in this encounter Plan of Treatment Not on file documented as of this encounter Procedures Procedure Name Priority Date/Time Associated Diagnosis Comments LAB SCAN 12/30/2011 12:35 PM EDT documented in this encounter Results * SCAN DOC: LAB (12/30/2011 12:35 PM EDT) Narrative 12/30/2011 12:35 PM EDT Procedure Note Provider, Scanning - 12/30/2011 12:35 PM EDT Scanning Provider MEDIA MGR SCAN EXT O RDR/RSLT documented in this encounter Visit Diagnoses Diagnosis Hodgkin's lymphoma- Primary Hodgkin's disease, unspecified documented in this encounter Care Teams Broadcast Technician Relationship Specialty Start Date End Date Reginald Nieto APRN [address] [place] [address] PCP - General 09/30/11 10/05/13 documented as of this encounter
--- OUTSIDE RECORDS SUMMARY | 2024-01-24 11:02 | XMS_ITS | Encounter Summary ---
Author Organization [facility] Address [facility] [place] [address] Care Team Providers Care Bender Hand Name Role Phone Reginald Nieto APRN Primary Care Provide r Encounter Details Date Type Department Care Team (Latest Contact Info) Description 03/07/2012 8:02 AM EST - 03/07/2012 11:59 PM [facility] Hospital [place] [phone] CLINIC, Bro Maldonado MD [facility] HEMATOLOGY [place] [address] Hodgkin lymphoma Discharge Disposition: Home Social History [...] unspecified documented in this encounter Care Teams Bender Hand Relationship Specialty Start Date End Date Reginald Nieto APRN [address] [place] [address] PCP - General 09/30/11 10/05/13 documented as of this encounter
--- OUTSIDE RECORDS SUMMARY | 2024-01-24 11:02 | XMS_ITS | Encounter Summary ---
Author Organization [facility] Address [facility] [place] [address] Care Team Providers Care Computer Network Specialist Name Role Phone Reginald Nieto APRN Primary Care Provide r Encounter Details Date Type Department Care Team (Late st Contact Info) Description 02/02/2012 Orders Only [place]ematology [place] [address] Jay Kaur MD [address] [place] [address] [phone] Hodgkin's disease (Primary Dx) Social History Tobacco Use [...] r Schedule Miscellaneous Lab request Lab Routine Hodgkin's disease Expected: 02/18/2012 (Approximate), Expires: 03/21/2012 documented as of this encounter Results * PET-CT skull base to mid thigh (03/07/2012 12:10 PM EST) Anatomical Region Laterality Modality Other 03/07/2012 12:1 0 PM EST Narrative 03/07/2012 3:26 PM EST Examination PET/CT STANDARD (Skull base to Mid-thigh) Technique Procedure: Following IV injection of 91-anxuvc-6-deoxyglucose (FDG) and a standard uptake period, a [...] you for referring this patient to the [facility] PET Center Film and interpretation reviewed by the attending Procedure Note Stevie Perdue MD - 03/07/2012 Examination PET/CT STANDARD (Skull base to Mid-thigh) Technique Procedure: Following IV injection of 23-rnvson-9-deoxyglucose (FDG) and a standard uptake period, a [...] you for referring this patient to the [facility] PET Center Film and interpretation reviewed by the attending Jay Kaur MD [facility] [place]ABLES * XR chest routine PA & lateral (03/07/2012 8:30 AM EST) Anatomical Region Laterality Modality Chest N/A Radiographic Catina ging 03/07/2012 8:30 AM EST Narrative 03/07/2012 11:03 AM EST Examination CHEST ROUTINE 2 VIEWS Clinical History Lymphoma, s/p 4 cycles of treatment: restaging Comparison CT chest dated January 15, 2012. Technique PA and lateral radiographs of the chest were obtained. Findings The lungs are clear bilaterally. ??The cardiomediastinal silhouette is midline. ?? The osseous and soft tissue structures are unchanged. Impression No acute cardiopulmonary process. Film and interpretation reviewed by the attending Procedure Note Romel Gonsalves MD - 03/07/2012 Examination CHEST ROUTINE 2 VIEWS Clinical History Lymphoma, s/p 4 cycles of treatment: restaging Comparison CT chest dated January 15, 2012. Technique PA and lateral radiographs of the chest were obtained. Findings The lungs are clear bilaterally. The cardiomediastinal silhouette ismidline. The osseous and soft tissue structures are unchanged. Impression No acute cardiopulmonary process. Film and interpretation reviewed by the attending Jay Kaur MD [facility] [place] ORDERABLES * Sedimentation rate (03/07/2012 8:20 AM EST) Sedimentation Rate Automated 3 0 - 15 mm/hr [facility] Blood specimen (specimen) 03/07/2012 8:20 AM EST 03/07/2012 8:30 AM EST Narrative Resulting Agency Comment Spec In Lab Jay Kaur MD HEMATOLOGY ORDERABLE S CERNER MILLENNIUM * (ABNORMAL) Comprehensive metabolic panel (non-fasting) (03/07/2012 8:20 AM EST) [facility] Glucose 100 60 - 199 mg/dL CERNER MILLENNIUM Comment:Diabetes: >=200 mg/d L plus symptoms Blood Urea Nitrogen 10 10 - 20 mg/dL CERNER MILLENNIUM Creatinine 0.78(L) 0.80 - 1.50 mg/dL CERNER MILLENNIUM Comment: Please note that the pediatric reference intervals supplied above were not validated at [facility]. Results from pediatric patients should be interpreted [...] In Lab Jay Kaur MD CHEMISTRY ORDERABLES [employer] * (ABNORMAL) CBC (with Diff) (03/07/2012 8:20 [...] Lab Jay Kaur MD HEMATOLOGY ORDERABLE S [facility] documented in this encounter Visit Diagnoses Diagnosis Hodgkin's disease- Primary Hodgkin's disease, unspecified Hodgkin's disease Hodgkin's disease, unspecified Hodgkin's disease Hodgkin's disease, unspecified documented in this encounter Care Teams Computer Network Specialist Relationship Specialty Start Date End Date Reginald Nieto APRN [address] [place] [address] PCP - General 09/30/11 10/05/13 documented as of this encounter
--- OUTSIDE RECORDS SUMMARY | 2024-01-24 11:02 | XMS_ITS | Encounter Summary ---
Author Organization [facility] [place] [address] Care Team Providers Care Screen Printer Name Role Phone Reginald Nieto APRN Primary Care Provide r Encounter Details Date Type Department Care Team (Late st Contact Info) Description 06/01/2012 11:30 AM EDT Clinical Support [facility] [place] [address] Social History Tobacco Use Types Packs/Day Years [...] on filedocumented in this encounter Care Teams Screen Printer Relationship Specialty Start Date End Date Reginald Nieto APRN [address] [place] [address] PCP - General 09/30/11 10/05/13 documented as of this encounter
--- OUTSIDE RECORDS SUMMARY | 2024-01-24 11:02 | XMS_ITS | Encounter Summary ---
Author Organization [facility] Address [facility] [place] [address] Care Team Providers Care Paralegal Legal Secretary Name Role Phone Reginald Nieto APRN Primary Care Provide r Encounter Details Date Type Department Care Team (Latest Contact Info) Description 09/26/2012 12:15 PM EDT Ancillary Appointment [place]ematology [place] [address] CLINIC, DR AGRAWAL Hodgkin lymphoma Discharge Disposition: Home Social History [...] Date/Time Associated Diagnosis Comments DIFFERENTIAL, AUTOMATED Routine 09/26/2012 12:44 PM EDT SEDIMENTATION RATE Routine 09/26/2012 12 :44 PM EDT CBC (WITH DIFF) Routine 09/26/2012 12:44 PM EDT LACTATE DEHYDROGENASE Routine 09/26/2012 12:44 PM EDT COMPREHENSIVE METABOLIC PANEL Routine 09/26/2012 12:44 PM EDT documented in this encounter Results * Differential, Automated (09/26/2012 12:44 PM EDT) Neutrophil % 59.2 34.0 - 71.0 % CERNER MILLENNIUM Neutrophil Absolute 3.64 1.50 - 6.30 x10(3)/mcL CERNER MILLENNIUM Lymph % 27.4 19.0 - 53.0 % CERNER MILLENNIUM Lymphocytes Abs 1.7 1.0 - 3.6 x10(3)/mcL CERNER MILLENNIUM Monocyte % 7.1 4.0 - 13.0 % CERNER MILLENNIUM Monocyte Abs 0.4 0.2 - 1.0 x10(3)/mcL CERNER MILLENNIUM Eos % 5.8 0.0 - 7.0 % CERNER MILLENNIUM Eosinophils Abs 0.4 0.0 - 0.5 x10(3)/mcL CERNER MILLENNIUM Basophil % 0.3 0.0 - 2.0 % CERNER MILLENNIUM Baso Absolute 0.0 0.0 - 0.2 x10(3)/mcL CERNER MILLENNIUM Immature Gran % 0.20 0.00 - 0.66 % CERNER MILLENNIUM Comment: Immature granulocytes(IG's)percentage and absolute count will include metamyelocytes, myelocytes, and promyelocytes. Blood smears from CBCs yielding IG's will be scanned manually for concordance. If this scan disagrees with the automated IG or if promyelocytes are noted, a manual differential will be performed. Immature Gran Absolute 0.01 0.00 - 0.05 x10(3)/mcL [facility]ERNER DARIANENNIUM Blood specimen (specimen) 09/26/2012 12:44 PM EDT 09/26/2012 12:[address] Ronda Solano MD HEMATOLOGY ORDERABLE S [facility] * Sedimentation rate (09/26/2012 12:44 PM EDT) Pathologist [facility] Sedimentation Rate Automated 2 0 - 15 mm/hr CERNER DARIANENNIUM Blood specimen (specimen) 09/26/2012 12:44 PM EDT 09/26/2012 12:49 PM EDT Narrative Resulting Agency Comment Spec In Lab Dr Ronda Solano MD HEMATOLOGY ORDERABLE S CERNER MILLENNIUM * Lactate Dehydrogenase (09/26/2012 12:44 PM EDT) Lactate Dehydrogenase 117 110 - 220 unit/L CERNER MILLENNIUM Blood specimen (specimen) 09/26/2012 12:44 PM EDT 09/26/2012 12:49 PM EDT Narrative Resulting Agency Comment Spec In Lab Dr Ronda Solano MD CHEMISTRY ORDERABLES CERN[facility] MILLENNIUM * (ABNORMAL) Comprehensive metabolic panel (non-fasting) (09/26/2012 12:44 PM EDT) Glucose 83 60 - 199 mg/dL CERNER MILLENNIUM Comment:Diabetes: >=200 mg/d L plus symptoms Blood Urea Nitrogen 15 10 - 20 mg/dL CERNER MILLENNIUM Creatinine 0.82 0.80 - 1.50 mg/dL CERNER MILLENNIUM Comment: Please note that the pediatric reference intervals supplied above were not validated at [facility]. Results from pediatric patients should be interpreted in conjunction to the patient's age, height and muscle mass. Sodium 139 135 - 145 mmol/L CERNER MILLENNIUM Potassium 3.6 3.5 - 5.0 mmol/L CERNER MILLENNIUM Comment: Please note: ??Patients with WBC >100,000 may have falsely elevated Potassium levels. ??For accurate Potassium quantification in these patients send serum separator tube (gold top) for subsequent determinations. ??Contact the Clinical Chemistry Laboratory if there are any questions. Chloride 103 98 - 107 mmol/L CERNER MILLENNIUM Carbon Dioxide 24 22 - 31 mmol/L CERNER MILLENNIUM Anion Gap 12 5 - 15 mmol/L CERNER MILLENNIUM Calcium 8.8 8.5 - 10.5 mg/dL CERNER MILLENNIUM Protein, Total 6.3(L) 6.4 - 8.3 gm/dL CERNER MILLENNIUM Albumin 4.4 3.2 - 5.2 gm/dL CERNER MILLENNIUM Aspartate Aminotransferase 14 0 - 39 unit/L CERNER MILLENNIUM Alanine Aminotransferase 13 0 - 55 unit/L CERNER MILLENNIUM Alkaline Phosphatase 78 40 - 120 unit/L CERNER MILLENNIUM Bilirubin, Total 0.2 0.2 - 1.3 mg/dL CERNER MILLENNIUM Bilirubin, Direct 0.1 0.0 - 0.3 mg/dL CERNER MILLENNIUM Est Glomerular Filtration Rate >60 >=60 CERNER MILLENNIUM Comment: This estimated GFR (eGFR) value was [...] the following links into your internet browser. http://www.nkdep.nih.gov/lab-evaluation.shtml http://www.kidney.org/professionals/ Blood specimen (specimen) 09/26/2012 12:44 PM EDT 09/26/2012 12:49 PM EDT Narrative Resulting Agency Comment Spec In Lab Dr Ronda Solano MD [facility]STRY ORDERABLES [facility] * CBC (with Diff) (09/26/2012 12:44 PM EDT) White Blood Cell 6.2 4.0 - 10.0 x10(3)/mcL CERNER MILLENNIUM Red Blood Cell 4.94 4.63 - 6.08 x10(6)/mcL CERNER MILLENNIUM Hemoglobin 14.8 13.7 - 17.5 gm/dL CERNER MILLENNIUM Hematocrit 44.7 40.0 - 51.0 % CERNER MILLENNIUM Mean Cell Volume 90.5 79.0 - 92.0 fL CERNER MILLENNIUM Mean Cell Hemoglobin 30.0 25.6 - 32.2 pg CERNER MILLENNIUM Mean Cell Hemoglobin Concentration 33.1 32.0 - 36.5 gm/dL CERNER MILLENNIUM Platelet 166 145 - 370 x10(3)/mcL CERNER MILLENNIUM RDW Standard Deviation 41.1 35.0 - 46.0 fL CERNER MILLENNIUM RDW coefficient of variation 12.5 10.9 - 14.4 % PHILIPPE FARMERENNIUM Mean Platelet Volume 11.2 9.0 - 12.0 fL PHILIPPE ESQUIVELIUM Blood specimen (specimen) 09/26/2012 12:44 PM EDT 09/26/2012 12:49 PM EDT Narrative Resulting Agency Comment Spec In Lab Dr Ronda Solano MD HEMATOLOGY ORDERABLE S [facility] documented in this encounter Visit Diagnoses Diagnosis Hodgkin lymphoma Hodgkin's disease, unspecified documented in this encounter Care Teams Paralegal Legal Secretary Relationship Specialty Start Date End Date Reginald Nieto APRN [address] [place] [address] PCP - General 09/30/11 10/05/13 documented as of this encounter
--- OUTSIDE RECORDS SUMMARY | 2024-01-24 11:02 | XMS_ITS | Encounter Summary ---
Author Organization [facility] [place] [address] Care Team Providers Care Coating And Embossing Unit Operator Name Role Phone Regniald Nieto APRN Primary Care Provide r Encounter Details Date Type Department Care Team (Late st Contact Info) Description 03/07/2012 Telephone Hematology [place] [phone] Day Stahl RN Social History Tobacco Use Types Packs/Day [...] encounter Miscellaneous Notes * Telephone Encounter - Day Stahl RN - 04/28/2012 10:31 AM EST Research Nurse Office Note EOT visit [id number]: A Phase II Trial of Response-Adapted Chemotherapy Based on Positron Emission Tomography forNon-Bulky Stage I or II Hodgkin Lymphoma C1D1: 10/21/11 ([facility]) C1D15: 11/04/11 ([facility]) C2D1: 11/18/11 ([facility]) C2D15: 12/02/11 ([facility]) C3D1: 12/16/11 ([facility]) C3D15: 12/30/11 ([facility]) C4D1: 01/13/12 ([facility]) C4D15: 01/27/12 ([facility]) Pt arrived today for scheduled appointments for end of treatment restaging, following completion of4 cycles of treatment for Hodgkin lymphoma, on protocol. Reports doing generally well. Plan: - Pt agrees to continue in follow up on [id number] - To be seen by Dr. Kaur to review results from today's assessments - Subsequent treatment as per medical team Pt in agreement with this plan, and agrees to call with questions, concerns. documented in this encounter Plan of Treatment Not on file documented as of this encounter Visit Diagnoses Not on filedocumented in this encounter Care Teams Coating And Embossing Unit Operator Relationship Specialty Start Date End Date Reginald Nieto APRN [address] [place] [address] PCP - General 09/30/11 10/05/13 documented as of this encounter
--- OUTSIDE RECORDS SUMMARY | 2024-01-24 11:02 | XMS_ITS | Encounter Summary ---
Author Organization [facility] [place] [address] Care Team Providers Care Mechanical Ordnance Assembler Name Role Phone Reginald Nieto APRN Primary Care Provide r Reason for Visit * Reason Comments Lymphoma cycle 3 day 15 Encounter Details Date Type Department Care Team (Late st Contact Info) Description 12/30/2011 10:30 AM EDT Office Visit Hematology Oncology at [address] [phone] Hodgkin lymphoma (Primary Dx) Social History Tobacco Use Types [...] as of this encounter Progress Notes * Lo Love RN - 12/30/2011 3:43 PM EDT INFUSION THERAPY ADMINISTRATION NOTES TIME TREATMENT STARTED: 1010 TIME TREATMENT ENDED: 5 DIAGNOSIS: Hodgkin's Lymphoma PROTOCOL:[id number] CYCLE #: 3 day 15 REASON FOR VISIT: abvd SUBJECTIVE King Doshi Tuan offers no complaints. OBJECTIVE LAB DATA: Labs reviewed and found adequate for treatment. Pt with anticipatory nausea given IV ativan when IV placed with good effect. Told pt and to take ativan at home 30 minutes before he comes to help prevent this. Pre administration: Chemotherapy orders independently verified for drug name, route, and dosage per patient's height, weight and BSA by Lary Love RN and Nancy CLARK. REACTIONS (DESCRIPTION, TIME, INTERVENTION AND EFFECTIVENESS) none ASSESSMENT King Dickerson was awake, alert and he tolerated treatment well. PLAN Return to clinic tomorrow for neulasta. documented in this encounter Plan of Treatment Not on file documented as of this encounter Visit Diagnoses Diagnosis Hodgkin lymphoma- Primary Hodgkin's disease, unspecified documented in this encounter Administered Medications Inactive Administered Medications - up to 3 most recent administrations Medication Order MAR Action Action Date Dose Rate Site bleomycin (BLEOCIN) 18 Units in sodium chloride 0.9% 56 mL chemo infusion 18 Units, Intravenous, ONCE, 1 dose, On Wed12/30/11 at 1030, Administer over 30 Minutes, 1 unit = 1 mg New Bag 12/30/2011 11:50 AM EDT 18 Units 112 mL/hr dacarbazine (DTIC) 660 mg in dextrose 5% 316 mL chemo infusion 660 mg, Intravenous, ONCE, 1 dose, On Wed12/30/11 at 1030, Administer over 30 Minutes New Bag 12/30/2011 12:29 PM EDT 660 mg 632 mL/hr DOXOrubicin (ADRIAMYCIN) chemo injection 44 mg 44 mg, Intravenous, ONCE, 1 dose, On Wed12/30/11 at 1030, Administer over 5 Minutes, Vesicant/irritant. Avoid extravasation Given 12/30/2011 11:37 AM EDT 44 mg 264 mL/hr fosaprepitant (EMEND) 150 mg in sodium chloride 0.9% 155 mL infusion 150 mg, Intravenous, ONCE, 1 dose, On Wed12/30/11 at 1030, Administer over 30 Minutes New Bag 12/30/2011 11:03 AM EDT 150 mg 310 mL/hr LORazepam (ATIVAN) injection 0.5-1 mg 0.5-1 mg, Intravenous, ONCE, 1 dose, On Wed12/30/11 at 1030, Routine Given 12/30/2011 10:30 AM EDT 1 mg palonosetron (ALOXI) injection 0.25 mg 0.25 mg, Intravenous, ONCE, 1 dose, On Wed12/30/11 at 1030, Routine Given 12/30/2011 10:35 AM EDT 0.25 mg sodium chloride 0.9% infusion 500 mL, Intravenous, ONCE, 1 dose, On Wed12/30/11 at 1030, With chemo New Bag 12/30/2011 10:30 AM EDT 500 mLs mL/hr vinBLAStine (VELBAN) chemo injection 11 mg 11 mg, Intravenous, ONCE, 1 dose, On Wed12/30/11 at 1030, Administer over 5 Minutes, FOR IV USE ONLY. FATAL IF GIVEN BY OTHER ROUTES. Vesicant/irritant Avoid extravasation Given 12/30/2011 11:42 AM EDT 11 mg 132 mL/hr documented in this encounter Care Teams Mechanical Ordnance Assembler Relationship Specialty Start Date End Date Reginald Nieto APRN [address] [place] [address] PCP - General 09/30/11 10/05/13 documented as of this encounter
--- OUTSIDE RECORDS SUMMARY | 2024-01-24 11:02 | XMS_ITS | Encounter Summary ---
Author Organization [facility] Address [facility] [place] [address] Care Team Providers Care Community Coordinator Name Role Phone Reginald Nieto APRN Primary Care Provide r Encounter Details Date Type Department Care Team (Late st Contact Info) Description 03/10/2012 Orders Only Hematology Oncology at [address] [phone] Jay Kaur MD [address] [place] [phone] Hodgkin lymphoma (Primary Dx) Social History Tobacco [...] Miscellaneous Lab request Lab Routine Hodgkin lymphoma Expected: 05/23/2012 (Approximate), Expires: 07/02/2012 Miscellaneous Lab request Lab Routine Hodgkin lymphoma Expected: 09/22/2012 (Approximate), Expires: 10/03/2012 documented as of this encounter Visit Diagnoses Diagnosis Hodgkin lymphoma- Primary Hodgkin's disease, unspecified documented in this encounter Care Teams Community Coordinator Relationship Specialty Start Date End Date Reginald Nieto APRN [address] [place] [address] PCP - General 09/30/11 10/05/13 documented as of this encounter
--- OUTSIDE RECORDS SUMMARY | 2024-01-24 11:02 | XMS_ITS | Encounter Summary ---
Author Organization [facility] [place] [address] Care Team Providers Care City Dispatcher Name Role Phone Reginald Nieto APRN Primary Care Provide r Encounter Details Date Type Department Care Team (Latest Contact Info) Description 12/02/2012 10:46 AM EDT - 12/02/2012 11:59 PM EDT Hospital [place] [phone] CLINIC, Jay Desai MD [address] [place] [address] [place], [place] [phone] Discharge Disposition: Home Social History Tobacco Use [...] CT NECK SOFT TISSUE W CONTRAST Routine 12/02/2012 1:08 PM EDT documented in this encounter Results * CT neck soft tissue with contrast (12/02/2012 1:08 PM EDT) Anatomical Region Laterality Modality Neck, Head Computed Tomogra phy 12/02/2012 1:08 PM EDT Narrative 12/02/2012 2:[address] Neck With Contrast Clinical History Bi-dimensional measures/Do not use RECIST criteria Lymphoma ?? s/p treatment ?? restaging Clinical trials patient Comparison CT of the neck dated 09/26/2012. Technique CT of the neck was obtained using 110 milliliters of Omnipaque 350. Findings The previously seen left level 3 lymph node has had a minimal decrease in size from 14 x 7 millimeters 14 x 6 millimeters. No new lymphadenopathy is seen. ?? No soft tissue masses or suspicious osseous lesions are seen. There is new right maxillary sinus mucosal thickening. ?? Bilateral apical subpleural blebs. Impression 1. Minimally decreased in size of level 3 lymph node. 2. No new lymphadenopathy. 3. New right maxillary mucosal thickening. Film and interpretation reviewed by the attending Procedure Note Jose Raul Amezquita MD - 12/02/[address] Neck With Contrast Clinical History Bi-dimensional measures/Do not use RECIST criteria Lymphoma s/p treatment restaging Clinical trials patient Comparison CT of the neck dated 09/26/2012. Technique CT of the neck was obtained using 110 milliliters of Omnipaque 350. Findings The previously seen left level 3 lymph node has had a minimal decrease insize from 14 x 7 millimeters 14 x 6 millimeters. No new lymphadenopathy isseen. No soft tissue masses or suspicious osseous lesions are seen. There is new right maxillary sinus mucosal thickening. Bilateral apical subpleural blebs. Impression 1. Minimally decreased in size of level 3 lymph node. 2. No new lymphadenopathy. 3. New right maxillary mucosal thickening. Film and interpretation reviewed by the attending Jay Kaur MD [facility] CT ORDERABLES documented in this encounter Visit Diagnoses Not on filedocumented in this encounter Administered Medications Inactive Administered Medications - up to 3 most recent administrations Medication Order MAR Action Action Date Dose Rate Site iohexol (OMNIPAQUE) 350 mg iodine/mL injection 17,500 mg 17,500 mg (50 mL), Oral, ONCE PRN, 1 dose, Starting on Wed12/02/12 at 1259, Until Wed12/02/12 at 1100, Per Protocol, Routine Given 12/02/2012 11:00 AM EDT 17,500 mg iohexol (OMNIPAQUE) 350 mg iodine/mL injection 38,500 mg 38,500 mg (110 mL), Intravenous, ONCE PRN, 1 dose, Starting on Wed12/02/12 at 1259, Until Wed12/02/12 at 1300, Per Protocol, Routine Given 12/02/2012 1:00 PM EDT 38,500 mg documented in this encounter Care Teams City Dispatcher Relationship Specialty Start Date End Date Reginald Nieto APRN [address] [place] [address] PCP - General 09/30/11 10/05/13 documented as of this encounter
--- OUTSIDE RECORDS SUMMARY | 2024-01-24 11:02 | XMS_ITS | Encounter Summary ---
Author Organization [facility] Address [facility] [place] [address] Care Team Providers Care Community Development Planner Name Role Phone Reginald Nieto APRN Primary Care Provide r Encounter Details Date Type Department Care Team (Latest Contact Info) Description 03/07/2012 8:24 AM EST - 03/07/2012 11:59 PM [facility] Hospital Encounter XRay at [address] [place] [phone] CLINIC, Jay Desai MD [address] [place] [address] [place] [address] Hodgkin's disease Discharge Disposition: Home Social History [...] 11/19/2011 03/09/2012 documented as of this encounter Procedure Notes * Provider, Scanning - 03/08/2012 10:04 AM ESTAssociated Order(s): SCAN DOC: PFT documented in this encounter Miscellaneous Notes * Miscellaneous - Provider, Scanning - 03/17/2012 10:47 AM EST documented in this encounter Plan of Treatment Not on file documented as of this encounter Procedures Procedure Name Priority Date/Time Associated Diagnosis Comments PFT SCAN 03/08/2012 10:04 AM EST XR CHEST PA AND LATERAL Routine 03/07/2012 8:30 AM EST Hodgkin's disease documented in this encounter Results * SCAN DOC: PFT (03/08/2012 10:04 AM EST) Narrative Transcriptions Provider, Scanning - 03/08/2012 10:04 AM EST Scanning Provider MEDIA MGR SCAN EXT O RDR/RSLT * XR chest routine PA & lateral [...] by the attending Jay Kaur MD IMG DX ORDERABLES documented in this encounter Visit Diagnoses Diagnosis Hodgkin's disease Hodgkin's disease, unspecified documented in this encounter Care Teams Community Development Planner Relationship Specialty Start Date End Date Reginald Nieto APRN [address] [place] [address] PCP - General 09/30/11 10/05/13 documented as of this encounter
--- OUTSIDE RECORDS SUMMARY | 2024-01-24 11:02 | XMS_ITS | Encounter Summary ---
Author Organization [facility] Address [facility] [place] [address] Care Team Providers Care Copy Preparer Name Role Phone Reginald Nieto APRN Primary Care Provide r Reason for Visit * Reason Comments Chemotherapy ABVD Cycle 4, Day 15 Encounter Details Date Type Department Care Team (Late st Contact Info) Description 01/27/2012 11:00 AM EST Office Visit Hematology Oncology at [address] [phone] CLINIC, DR [facility]IL[facility] HEM/ONC Hodgkin disease Social History Tobacco Use Types Packs/Day [...] as of this encounter Progress Notes * May Carbone RN - 01/27/2012 11:10 AM EST INFUSION THERAPY ADMINISTRATION NOTES TIME TREATMENT STARTED: TIME TREATMENT ENDED: 1305 DIAGNOSIS: Hodgkin's Disease PROTOCOL: [id number] CYCLE #: 4, day 15 REASON FOR VISIT: ABVD infusion (bleomycin held) SUBJECTIVE King Dickerson offers no complaints. OBJECTIVE LAB DATA: Labs reviewed and found adequate for treatment. IF PAIN IS >5, INTERVENTION AND EFFECTIVENESS: n/a Pre administration: Chemotherapy orders independently verified for drug name, route, and dosage per patient's height, weight and BSA by May Carbone RN and Lo Love RN. REACTIONS (DESCRIPTION, TIME, INTERVENTION AND EFFECTIVENESS) none ASSESSMENT Kign Dickerson was awake, alert and he tolerated treatment well. PLAN Return to clinic per routine. Neulasta discontinued. documented in this encounter Plan of Treatment Not on file documented as of this encounter Visit Diagnoses Diagnosis Hodgkin disease Hodgkin's disease, unspecified documented in this encounter Administered Medications Inactive Administered Medications - up to 3 most recent administrations Medication Order MAR Action Action Date Dose Rate Site dacarbazine (DTIC) 660 mg in dextrose 5% 316 mL chemo infusion 660 mg, Intravenous, ONCE, 1 dose, On Wed01/27/12 at 1100, Administer over 30 Minutes New Bag 01/27/2012 12:34 PM EST 660 mg 632 mL/hr dexamethasone sodium (PF) 20 mg in sodium chloride 0.9% 52 mL IVPB Intravenous, at 208 mL/hr, ONCE, On Wed01/27/12 at 1100, 1 dose Given 01/27/2012 11:00 AM EST 208 mL/hr DOXOrubicin (ADRIAMYCIN) chemo injection 44 mg 44 mg, Intravenous, ONCE, 1 dose, On Wed01/27/12 at 1100, Administer over 5 Minutes, Vesicant/irritant. Avoid extravasation Given 01/27/2012 12:20 PM EST 44 mg 264 mL/hr fosaprepitant (EMEND) 150 mg in sodium chloride 0.9% 155 mL infusion 150 mg, Intravenous, ONCE, 1 dose, On Wed01/27/12 at 1100, Administer over 30 Minutes New Bag 01/27/2012 11:19 AM EST 150 mg 310 mL/hr LORazepam (ATIVAN) injection 0.5-1 mg 0.5-1 mg, Intravenous, ONCE, 1 dose, On Wed01/27/12 at 1100, Routine Given 01/27/2012 10:40 AM EST 1 mg palonosetron (ALOXI) injection 0.25 mg 0.25 mg, Intravenous, ONCE, 1 dose, On Wed01/27/12 at 1100, Routine Given 01/27/2012 10:58 AM EST 0.25 mg sodium chloride 0.9% infusion 500 mL, Intravenous, ONCE, 1 dose, On Wed01/27/12 at 1100, With chemo New Bag 01/27/2012 10:40 AM EST 500 mLs mL/hr vinBLAStine (VELBAN) chemo injection 11 mg 11 mg, Intravenous, ONCE, 1 dose, On Wed01/27/12 at 1100, Administer over 5 Minutes, FOR IV USE ONLY. FATAL IF GIVEN BY OTHER ROUTES. Vesicant/irritant Avoid extravasation Given 01/27/2012 12:12 PM EST 11 mg 132 mL/hr documented in this encounter Care Teams Copy Preparer Relationship Specialty Start Date End Date Reginald Nieto APRN [address] [place] [address] PCP - General 09/30/11 10/05/13 documented as of this encounter
--- OUTSIDE RECORDS SUMMARY | 2024-01-24 11:03 | XMS_ITS | Encounter Summary ---
Author Organization [facility] [address] Care Team Providers Care Mentally Impaired Teacher Name Role Phone Reginald Nieto APRN Primary Care Provide r Encounter Details Date Type Department Care Team (Latest Contact Info) Description 10/16/2011 7:20 AM EDT - 10/16/2011 10:01 AM EDT Hospital [place] [phone] Hodgkin disease Social History Tobacco Use Types Packs/Day Years Used Date Smoking Tobacco: Every Day Cigarettes Alcohol Use Standard Drinks/Week Comments Yes 1.7 (1 standard drink = 0.6 oz p ure alcohol) Sex and Gender Information Value Date Recorded Sex Assigned at Not on file Gender Identity Not on file Sexual Orientation Not on file documented as of this encounter Medications at Time of Discharge Medication Sig Dispensed Refills Start Date End Date sertraline (ZOLOFT) 25 mg tabletIndications:Hodgki n disease Take 25 mg by mouth daily. 03/09/2012 melatonin 10 mg TabIndications:Hodgkin disease Take 10 mg by mouth nightly as needed. 03/09/2012 Garlic 1,000 mg CapIndications:Hodgkin disease Take 1,000 mg by mouth daily. 11/18/2011 co-enzyme Q-10 50 mg capsuleIndications:Hodgk in disease Take 50 mg by mouth daily. 11/18/2011 Cholecalciferol, Vitamin D3, (VITAMIN D-3) 1,000 unit ChewIndications:Hodgkin disease Take 1,000 Units by mouth daily. 11/18/2011 PEDIATRIC MULTIVIT COMB #19/FA (CHILDREN'S MULTI-VIT GUMMIES ORAL)Indications:Hodgkin disease Take by mouth daily. 012 documented as of this encounter Plan of Treatment Not on file documented as of this encounter Procedures Procedure Name Priority Date/Time Associated Diagnosis Comments CT NECK SOFT TISSUE W CONTRAST Routine 10/16/2011 9:53 AM EDT Hodgkin's disease, unspecified documented in this encounter Results * CT NECK SOFT TISSUE WITH CONTRAST (10/16/2011 9:53 AM EDT) Anatomical Region Laterality Modality Neck, Head Computed Tomogra phy 10/16/2011 9:53 AM EDT Narrative 10/16/2011 10:[address] Neck With Contrast Clinical History New Dx Hodgkin Lymphoma Pre-chemo evaluation Bi-dimensional measurements, please Comparison Head CT 10/02/2011. Technique CT of the neck performed following intravenous administration of 110 mL Omnipaque 350. Findings As on prior PET-CT, there are multiple enlarged lymph nodes in the left neck. ?? The large largest of these is at level 3 measuring 2.1 x 3.7 cm. ??Nodes extend to level 4. ??No pathologic adenopathy is present on the right. ??There is no aggressive osseous lesions. ?? Impression Left neck adenopathy as above. ?? Procedure Note Jay Monge MD - 10/16/[address] Neck With Contrast Clinical History New Dx Hodgkin Lymphoma Pre-chemo evaluation Bi-dimensional measurements, please Comparison Head CT 10/02/2011. Technique CT of the neck performed following intravenous administration of 110 mL Omnipaque 350. Findings As on prior PET-CT, there are multiple enlarged lymph nodes in the leftneck. The large largest of these is at level 3 measuring 2.1 x 3.7 cm. Nodesextend to level 4. No pathologic adenopathy is present on the right. There isno aggressive osseous lesions. Impression Left neck adenopathy as above. Stevie Domingo MD IMG CT ORDERABLES documented in this encounter Visit Diagnoses Diagnosis Hodgkin disease Hodgkin's disease, unspecified documented in this encounter Care Teams Mentally Impaired Teacher Relationship Specialty Start Date End Date Reginald Nieto APRN [address] [place] [address] PCP - General 09/30/11 10/05/13 documented as of this encounter
--- OUTSIDE RECORDS SUMMARY | 2024-01-24 11:03 | XMS_ITS | Encounter Summary ---
Author Organization [facility] Address [facility] [place] [address] Care Team Providers Care Fur Finisher Name Role Phone Reginald Nieto APRN Primary Care Provide r Reason for Visit * Reason Comments Follow-up Encounter Details Date Type Department Care Team (Late st Contact Info) Description 12/16/2011 10:00 AM EDT Follow-Up Hematology Oncology at [address] [phone] Stacey Rhodes MD [facility] HEMATOLOGY/[place] [address] Hodgkin's disease (Primary Dx) Discharge Disposition: Home [...] Sign Reading Time Taken Comments Blood Pressure 116/77 12/16/2011 10:01 AM EDT Pulse 85 12/16/2011 10:01 AM EDT Temperature 37 ??C (98.6 ??F) 12/16/2011 10:01 AM EDT Respiratory Rate 18 12/16/2011 10:01 AM EDT Oxygen Saturation 100% 12/16/2011 10:01 AM EDT Inhaled Oxygen Concentration - - Weight 64 kg (141 lb 1.5 oz) 12/16/2011 10:01 AM EDT Height 175.9 cm (5' 9.25) 12/16/2011 10:01 AM E DT Body Mass Index 20.68 12/16/2011 10:01 AM EDT documented in this encounter Progress Notes * Stacey Rhodes MD - 12/16/2011 10:25 AM EDTAddended by: STACEY RHODES on: 12/16/2011 Modules accepted: Level of Service * Stacey Rhodes MD - 12/16/2011 10:24 AM EDT Problem list #1 Hodgkin's disease A histology: Classic Hodgkin's disease B PET scan shows stage IIA disease. 36 x 25 mm node in the left neck +4 x 5 mm node in the anteriormediastinum on the left side C. started chemotherapy with the ABVD on protocol [id number] [id number], October 20, 2011 #2 smoker Medication list [...] Vicki cells. Interval history This is day one of cycle #3, his fifth dose of ABVD. Has been no interval change. The neuropathy isunchanged. He continues to work half days. He finds that he takes his socks off the numbness seems to go away. The not in this is mainly isolated his feet with some less severe numbness in his fingertips on both hands. He feels that the neuropathy is no different now than it was 2-4 weeks ago. He does continue to smoke a half a pack a day of cigarettes. We discussed this again. He does not think he can do any better than it. Review of systems Constitutional the prior nausea is resolved with [...] one on each forearm . Lymph nodes The prior jaci mass is completely gone on today's exam. The prior thickening in the skin around the enlarged node is gone. He really has a normal exam other than the scar within the lymph node biopsy was performed. I feel no lymph nodes in the mantle or inguinal region. Extremities negative for swelling or cyanosis or clubbing Past medical history Negative for any chronic illnesses. He has had issues with depression and apparently he has fertility issues. He does smoke. Family history Negative for cancer. Both his parents are still alive and well his father does have some heart disease. Social history He is , he does not have children. He works at [employer] in [place]. Note that he does smoke. Labs White count 14.3 hemoglobin 13.6 platelets 238 ANC 11.2 Creatinine 0.9 BUN 14 Albumin 3.9 total protein 6.8 Alkaline phosphatase 127 total bili 0.92 AST 15 ALT 26 Sodium 140 potassium 4.3 PET scan from last week: Negative. Complete resolution of prior disease in neck and mediastinum Assessment This will be his fifth dose of ABVD, day one of cycle #3 for a total planned of 4 cycles. He will receive 3 more doses after today. Note that he is PET negative after 2 cycles and per protocol he is randomized based on the negativePET to a total of 4 cycles of ABVD. This will be the beginning of cycle #3. He should complete all his chemotherapy on January 26. The only real toxicity he's experienced is the neuropathy. He's had some mild nausea but it's almost gone now with this last cycle. His been no vomiting for the last 3 doses after we added Aloxi and emend. Adverse events: None other than expected chemotherapy toxicity of neutropenia and neuropathy in his feet. All are secondary to ABVD chemotherapy Neuropathy: Grade 1, does not interfere with ADLs nor interrupt his sleep. This is from Velban chemotherapy Nausea This is from his chemotherapy . Significantly less now that he's add emend added to the Aloxi, there's been no vomiting and is able to eat even the day after chemotherapy. Grade 1 at most Plan #1 day one cycle #3 of ABVD today #2 return in 2 weeks for day 15 of cycle #3 #3 continue Neulasta 4 mg on day 2 after chemotherapy #4 see me in 2 weeks with a CBC and CMP This note was created using [employer] voice recognition software. It was reviewed for major content. However, there may be multiple small discrepancies and errors due to the voice recognition aspects of the software. documented in this encounter Procedure Notes * Provider, Scanning - 12/16/2011 5:13 PM EDTAssociated Order(s): SCAN DOC: CHEMOTHERAPY documented in this encounter Plan of Treatment Not on file documented as of this encounter Procedures Procedure Name Priority Date/Time Associated Diagnosis Comments CHEMOTHERAPY SCAN 12/16/2011 5:1 3 PM EDT documented in this encounter Results * SCAN DOC: CHEMOTHERAPY (12/16/2011 5:13 PM EDT) Narrative 12/16/2011 5:13 PM EDT Procedure Note Provider, Scanning - 12/16/2011 5:13 PM EDT Scanning Provider MEDIA MGR SCAN EXT O RDR/RSLT documented in this encounter Visit Diagnoses Diagnosis Hodgkin's disease- Primary Hodgkin's disease, unspecified documented in this encounter Care Teams Fur Finisher Relationship Specialty Start Date End Date Reginald Nieto, SQL SERVER DBA [address] [place] [address] PCP - General 09/30/11 10/05/13 documented as of this encounter
--- OUTSIDE RECORDS SUMMARY | 2024-01-24 11:03 | XMS_ITS | Encounter Summary ---
Author Organization [facility] Address [facility] [place] [address] Care Team Providers Care Garage Door Installer Name Role Phone Reginald Nieto APRN Primary Care Provide r Encounter Details Date Type Department Care Team (Latest Contact Info) Description 12/10/2011 9:35 AM EDT Ancillary Appointment Hematology [place] [phone] CLINIC, Stevie Page MD [facility] [place] [address] Hodgkin lymphoma Discharge Disposition: Home Social History [...] unspecified documented in this encounter Care Teams Garage Door Installer Relationship Specialty Start Date End Date Reginald Nieto APRN [address] [place] [address] PCP - General 09/30/11 10/05/13 documented as of this encounter
--- OUTSIDE RECORDS SUMMARY | 2024-01-24 11:03 | XMS_ITS | Encounter Summary ---
Author Organization [facility] [place] [address] Care Team Providers Care Concert Singer Name Role Phone Reginald Nieto APRN Primary Care Provide r Encounter Details Date Type Department Care Team (Late st Contact Info) Description 10/16/2011 7:20 AM EDT - 10/16/2011 10:01 AM EDT Hospital Encounter [place] [phone] Social History Tobacco Use Types Packs/Day Years [...] Name Priority Date/Time Associated Diagnosis Comments NM REST MUGA SCAN Routine 10/16/2011 9:0 9 AM EDT documented in this encounter Results * NM REST MUGA (MULTI GATED ACQUISITION SCAN ) SCAN (10/16/2011 9:09 AM EDT) Anatomical Region Laterality Modality Other 10/16/2011 9:09 AM EDT Narrative 10/19/2011 10:33 AM EDT Examination REST MUGA SCAN, 10/16/2011 Clinical History New dx Hodgkin lymphoma. Pre-chemo evaluation. Comparison None. Technique Autologous red blood cells were withdrawn and labeled with 23.1 mCi of technetium-99m pertechnetate and then reinfused into the patient. Gated images of the heart were then obtained in the anterior, [place] and left lateral projections. Findings The cardiac chambers are normal in size. No wall motion abnormalities are present. Quantitative Analysis The left ventricular ejection fraction is 64%. Impression Normal left ventricular function, estimated LVEF 64 %. Film and interpretation reviewed by the attending Procedure Note Karley Mitchell MD - 10/19/2011 Examination REST MUGA SCAN, 10/16/2011 Clinical History New dx Hodgkin lymphoma. Pre-chemo evaluation. Comparison None. Technique Autologous red blood cells were withdrawn and labeled with 23.1 mCi of technetium-99m pertechnetate and then reinfused into the patient. Gatedimages of the heart were then obtained in the anterior, [place] and left lateral projections. Findings The cardiac chambers are normal in size. No wall motion abnormalities are present. Quantitative Analysis The left ventricular ejection fraction is 64%. Impression Normal left ventricular function, estimated LVEF 64 %. Film and interpretation reviewed by the attending Stevie [place] NM ORDERABLES documented in this encounter Visit Diagnoses Not on filedocumented in this encounter Care Teams Concert Singer Relationship Specialty Start Date End Date Reginald Nieto APRN [address] [place] [address] PCP - General 09/30/11 10/05/13 documented as of this encounter
--- OUTSIDE RECORDS SUMMARY | 2024-01-24 11:03 | XMS_ITS | Encounter Summary ---
Author Organization [facility] Address [facility] [place] [address] Care Team Providers Care Sexual Assault Response Coordinator Name Role Phone Reginald Nieto APRN Primary Care Provide r Reason for Visit * Reason Comments Follow-up Encounter Details Date Type Department Care Team (Late st Contact Info) Description 11/18/2011 11:30 AM EDT Follow-Up Hematology Oncology at [address] [phone] Stacey Rhodes MD [facility] HEMATOLOGY/[place] [address] Hodgkin's disease (Primary Dx) Discharge Disposition: Home [...] Sign Reading Time Taken Comments Blood Pressure 139/62 11/18/2011 11:40 AM EDT Pulse 76 11/18/2011 11:40 AM EDT Temperature 36.8 ??C (98.2 ??F) 11/18/2011 11:40 AM E DT Respiratory Rate 18 11/18/2011 11:40 AM EDT Oxygen Saturation 100% 11/18/2011 11:40 AM EDT Inhaled Oxygen Concentration - - Weight 62 kg (136 lb 11 oz) 11/18/2011 11:40 AM EDT Height 175.9 cm (5' 9.25) 11/18/2011 11:40 AM E DT Body Mass Index 20.04 11/18/2011 11:40 AM EDT documented in this encounter Progress Notes * Stacey Rhodes MD - 11/18/2011 12:27 PM EDTAddended by: STACEY RHODES on: 11/18/2011 Modules accepted: Orders * Stacey Rhodes MD - 11/18/2011 12:24 PM EDT Problem list #1 Hodgkin's disease A histology: Classic Hodgkin's disease B PET scan shows stage IIA disease. 36 x 25 mm node in the left neck +4 x 5 mm node in the anteriormediastinum on the left side C. started chemotherapy with the ABVD on protocol CALGB [id number], October 20, 2011 #2 smoker Medication list [...] with Sebastián- Vicki cells. Interval history This will be the beginning of cycle #2. The prior IV per site is nontender. The Aloxi stopped the nausea. He is now complaining of some numbness in his feet which is new. He states taking his socks off helps. Otherwise is doing very well and has had no significant problems. No vomiting, emergency room, no neutropenic fevers, no fevers at all. Review of systems Constitutional the prior nausea [...] or clubbing Physical exam Vital signs reviewed Lungs clear, no wheezes, rales or rhonchi Cardiac normal rate and rhythm, no murmurs, rubs, gallops, no JVD, can lie flat on the exam table. Abdomen soft positive bowel sounds, nontender, no rebound or guarding, no hepatosplenomegaly Neuro normal affect, oriented x3, gives a good history, cranial nerves intact, gait normal strengthnormal Eyes pupils equal, round, react to light, extraocular movements intact, sclerae clear Skin warm and dry, no rashes, no cyanosis he does have 2 large tattoos one on each forearm Left arm: Prior IV site looks good today. Lymph nodes The prior jaci mass is completely gone on today's exam. There is some thickening of the skin at the biopsy site on the left side of the neck but I cannot palpate any lymph nodes in the mantle regionor the axilla. Extremities negative for swelling or cyanosis or [...] does not have children. He works at [employer] in [place]. Note that he does smoke. Labs White count 2.3 ANC 0.9 Hemoglobin 14 platelets 219 Creatinine 0.7 calcium 8.2 total bili 0.28 albumin 4.0 total protein 6.6 AST 12 ALT 24 Assessment Adverse events: None other than expected chemotherapy toxicity of neutropenia and neuropathy in his feet. Neuropathy: Grade 1, does not interfere with ADLs nor interrupt his sleep. Overall is doing well. He's now been through one full cycle of ABVD and tolerated it well. The Aloxi did stop the nausea. He does complain of numbness in his feet and is relieved by taking off his socks. None in his hands so far. This doesn't really bother him he is OK with continuing. By physical exam he is in a complete remission which is to say that the enlarged node on the left side of his neck is completely gone. Note that he does continue to smoke and we discussed this again today but I don't think is going to stop. He didn't have any trouble with his IV site this time her feet but he did not mention it. His other issue is neutropenia, his ANC is only 0.9. Some going to start him on Neulasta 6 mg subcutaneous on day 2 in addition Cipro 500 mg twice a day as prophylaxis for infections. Reviewed neutropenic precautions with him and you need to go immediately to the emergency room either for fever or shaking chills rigors or coughing. Plan #1 receive day day one cycle #2 ABVD today #2 continue Aloxi as a premed #3 PET scan do after day 15 cycle #2 #4 Neulasta 6 mg subcutaneous tomorrow, day 2 This note was created using [employer] voice recognition software. It was reviewed for major content. However, there may be multiple small discrepancies and errors due to the voice recognition aspects of the software. documented in this encounter Procedure Notes * Provider, Scanning - 11/19/2011 9:30 AM EDTAssociated Order(s): SCAN DOC: CHEMOTHERAPY documented in this encounter Plan of Treatment Not on file documented as of this encounter Procedures Procedure Name Priority Date/Time Associated Diagnosis Comments CHEMOTHERAPY SCAN 11/19/2011 9:3 0 AM EDT documented in this encounter Results * SCAN DOC: CHEMOTHERAPY (11/19/2011 9:30 AM EDT) Narrative 11/19/2011 9:30 AM EDT Procedure Note Provider, Scanning - 11/19/2011 9:30 AM EDT Scanning Provider MEDIA MGR SCAN EXT O RDR/RSLT documented in this encounter Visit Diagnoses Diagnosis Hodgkin's disease- Primary Hodgkin's disease, unspecified documented in this encounter Care Teams Sexual Assault Response Coordinator Relationship Specialty Start Date End Date Reginald Nieto, VEGETABLE WASHING MACHINE OPERATOR [address] [place] [address] PCP - General 09/30/11 10/05/13 documented as of this encounter
--- OUTSIDE RECORDS SUMMARY | 2024-01-24 11:03 | XMS_ITS | Encounter Summary ---
Author Organization [facility] Address [facility] [place] [address] Care Team Providers Care Chemical Process Project Engineer Name Role Phone Reginald Nieto APRN Primary Care Provide r Encounter Details Date Type Department Care Team (Latest Contact Info) Description 12/10/2011 1:25 PM EDT - 12/10/2011 11:59 PM EDT Hospital Encounter XRay at [address] [place] [phone] CLINIC, Stevie Page MD [facility] [place] [address] Hodgkin lymphoma Discharge Disposition: Home Social History [...] Sig Dispensed Refills Start Date End Date ondansetron (ZOFRAN) 8 mg tablet Take 1 tablet by mouth every 8 hours as needed for Nausea. 20 tablet 4 10/21/2011 12/30/2011 LORazepam (ATIVAN) 1 mg tablet Take 1 tablet by mouth every 6 hours as needed for Anxiety. 20 tablet 3 10/21/2011 12/14/2011 sertraline (ZOLOFT) 25 mg tabletIndications:Hodgk in disease Take 25 mg by mouth daily. 03/09/2012 melatonin 10 mg TabIndications:Hodgkin disease Take 10 mg by mouth nightly as needed. 03/09/2012 prochlorperazine (COMPAZINE) 10 mg tablet Take 1 tablet by mouth every 6 hours as needed for Nausea. 30 tablet 2 11/19/2011 03/09/2012 documented as of this encounter Plan of Treatment Not on file documented as of this encounter Procedures Procedure Name Priority Date/Time Associated Diagnosis Comments XR CHEST PA AND LATERAL Routine 12/10/2011 1:45 PM EDT Hodgkin lymphoma documented in this encounter Results * XR chest routine PA & lateral (12/10/2011 1:45 PM EDT) Anatomical Region Laterality Modality Chest N/A Radiographic Catina ging 12/10/2011 1:45 PM EDT Narrative 12/10/2011 2:06 PM EDT Examination CHEST ROUTINE PA+LAT Clinical History restaging Comparison 10/16/2011. Technique PA and lateral views of the chest. Findings The lungs appear clear. ??The heart, mediastinum, jose, pulmonary vessels and pleura are within normal limits. ??No significant osseous findings. ??No interval change from 10/16/2011. Impression Normal chest radiograph. ??No significant change from 10/16/2011. Procedure Note Amber Messina MD - 12/10/2011 Examination CHEST ROUTINE PA+LAT Clinical History restaging Comparison 10/16/2011. Technique PA and lateral views of the chest. Findings The lungs appear clear. The heart, mediastinum, jose, pulmonary vesselsand pleura are within normal limits. No significant osseous findings. Nointerval change from 10/16/2011. Impression Normal chest radiograph. No significant change from 10/16/2011. Stevie Domingo MD IMG DX ORDERABLES documented in this encounter Visit Diagnoses Diagnosis Hodgkin lymphoma Hodgkin's disease, unspecified documented in this encounter Care Teams Chemical Process Project Engineer Relationship Specialty Start Date End Date Reginald Nieto APRN [address] [place] [address] PCP - General 09/30/11 10/05/13 documented as of this encounter
--- OUTSIDE RECORDS SUMMARY | 2024-01-24 11:03 | XMS_ITS | Encounter Summary ---
Author Organization [place] [address] Care Team Providers Care Customs And Border Protection Officer Name Role Phone Reginald Nieto APRN Primary Care Provide r Encounter Details Date Type Department Care Team (Late st Contact Info) Description 11/04/2011 Notes Only Hematology Oncology at [address] [phone] SUPERINTENDENT OFFICE OF CARE MANAGEMENT Social History Tobacco [...] Progress Notes * Katlyn Vann MSW - 11/05/2011 12:25 PM EDT Reason for Referral - Brief Assessment of social/emotional needs. Met with pt and friend Hetal during clinic visit 11-04-11. Social Supports - Pt has been to [place] x17 yrs. They do not have children. Pt's brother/ recently relocated to this area. Pt identified Hetal as 'my other mom (brother's mother) and she also lives local to pt. Living Situation/Daily Activities/Transportation - Pt indicated he manages his daily activities. Hedoes not expect any problems with transportation to his appointments. 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 He had been on leave from his job. He is back to work with the option of working between 4 - 8 hrs a day. Hiswife works at the same company. Pt's health insurance is through his work. Did give pt the contact information to PFS at [facility] if he had any insurance related questions. Advance Directives - Pt does not have his advance directives done. Per pt request information was provided. Adjustment to Illness - pt acknowledges having difficulty coping with his present health status. Heindicated he is trying to be more positive about his situation. Encouraged pt to utilize available supports and inquired if behavioral health services available through his PCP office. Pt indicated he is considering connecting with a more local PCP which would also offer behavioral health services.Pt beginning to look at options in the area. Instructed pt there are also other options for mental health supports/services. Pt to consider and will discuss further. Assessment/Plan - Pt with support from family and friends. May benefit from additional mental health support services. Gave pt my contact information and will plan to follow up with him re this. Willfollow for support and resources. documented in this encounter Plan of Treatment Not on file documented as of this encounter Visit Diagnoses Not on filedocumented in this encounter Care Teams Customs And Border Protection Officer Relationship Specialty Start Date End Date Reginald Nieto APRN [address] [place] [address] PCP - General 09/30/11 10/05/13 documented as of this encounter
--- OUTSIDE RECORDS SUMMARY | 2024-01-24 11:03 | XMS_ITS | Encounter Summary ---
Author Organization [facility] Address [facility] [place] [address] Care Team Providers Care Change Management Coordinator Name Role Phone Reginald Nieto APRN Primary Care Provide r Encounter Details Date Type Department Care Team (Late st Contact Info) Description 10/13/2011 Orders Only Hematology [place] [phone] Stevie Domingo MD [facility] [address] HEMATOLOGY [place] [address] Hodgkin disease (Primary Dx) Social History Tobacco [...] Schedule Miscellaneous Lab request Lab Routine Hodgkin disease Expected: 10/14/2011 (Approximate), Expires: 10/23/2011 documented as of this encounter Visit Diagnoses Diagnosis Hodgkin disease- Primary Hodgkin's disease, unspecified documented in this encounter Care Teams Change Management Coordinator Relationship Specialty Start Date End Date Reginald Nieto APRN [address] [place] [address] PCP - General 09/30/11 10/05/13 documented as of this encounter
--- OUTSIDE RECORDS SUMMARY | 2024-01-24 11:03 | XMS_ITS | Encounter Summary ---
Author Organization [facility] Address [facility] [place] [address] Care Team Providers Care Hull Builder Name Role Phone Reginald Nieto APRN Primary Care Provide r Encounter Details Date Type Department Care Team (Latest Contact Info) Description 10/16/2011 7:20 AM EDT - 10/16/2011 11:59 PM EDT Hospital [place] [phone] CLINIC, Stevie Page MD [facility] [place] [address] Hodgkin disease Discharge Disposition: Home Social History Tobacco [...] daily. 012 documented as of this encounter Miscellaneous Notes * Miscellaneous - Provider, Scanning - 10/20/2011 10:31 AM EDT documented in this encounter Plan of Treatment Not on file documented as of this encounter Procedures Procedure Name Priority Date/Time Associated Diagnosis Comments CT CHEST ABDOMEN PELVIS W CONTRAST (GENERIC) Routine 10/16/2011 9:53 AM EDT Hodgkin's disease, unspecified documented in this encounter Results * CT CHEST, ABDOMEN, & PELVIS WITH CONTRAST (10/16/2011 9:53 AM EDT) Anatomical Region Laterality Modality Computed Tomogra phy 10/16/2011 9:53 AM EDT Narrative 10/16/2011 10:[address] Chest / Abdomen / Pelvis With Contrast Clinical History New Dx Hodgkin Lymphoma Pre-chemo evaluation Bi-dimensional measurements, please Comparison None Technique 110 mL Omnipaque 350 utilized for intravenous contrast. Findings Chest: The lungs are normal. ??No pulmonary nodules, areas of airspace consolidation or pleural effusion. The soft tissues of the chest are remarkable for a partially visualized left cervical chain lymphadenopathy, which is more clearly evaluated on the accompanying CT of the neck. ??A left supraclavicular lymph node is enlarged and is measured as noted in the below chart. No axillary or mediastinal lymphadenopathy. ??No hilar adenopathy. Abdomen: The liver and spleen are unremarkable. ??No hepatosplenomegaly. ??No evidence of dilated intrahepatic or extrahepatic biliary ducts. ??The pancreas, adrenal glands, and kidneys are unremarkable. ??No hydronephrosis. No abdominal lymphadenopathy, free fluid or free air. ??The bowel pattern is unremarkable, without evidence of dilated loops of small bowel or small bowel wall thickening. ??Pelvis: No pelvic sidewall or inguinal lymphadenopathy. ??No pelvic free fluid. LESION #1 (left supraclavicular lymph node): Present Scan: Series #2, image #3, max diam 17 x 21 mm Impression Partially visualized left supraclavicular/cervical chain lymphadenopathy, which is more clearly evaluated on the accompanying CT of the neck. ??No intra-abdominal or pelvic lymphadenopathy. Procedure Note Henok Castro MD - 10/16/[address] Chest / Abdomen / Pelvis With Contrast Clinical History New Dx Hodgkin Lymphoma Pre-chemo evaluation Bi-dimensional measurements, please Comparison None Technique 110 mL Omnipaque 350 utilized for intravenous contrast. Findings Chest: The lungs are normal. No pulmonary nodules, areas of airspaceconsolidation or pleural effusion. The soft tissues of the chest are remarkable for a partially visualizedleft cervical chain lymphadenopathy, which is more clearly evaluated on the accompanying CT of the neck. A left supraclavicular lymph node isenlarged and is measured as noted in the below chart. No axillary or mediastinal lymphadenopathy. No hilar adenopathy. Abdomen: The liver and spleen are unremarkable. No hepatosplenomegaly. Noevidence of dilated intrahepatic or extrahepatic biliary ducts. The pancreas, adrenal glands, and kidneys are unremarkable. No hydronephrosis. No abdominal lymphadenopathy, free fluid or free air. The bowel patternis unremarkable, without evidence of dilated loops of small bowel or smallbowel wall thickening. Pelvis: No pelvic sidewall or inguinal lymphadenopathy. No pelvic free fluid. LESION #1 (left supraclavicular lymph node): Present Scan: Series #2, image #3, max diam 17 x 21 mm Impression Partially visualized left supraclavicular/cervical chain lymphadenopathy,which is more clearly evaluated on the accompanying CT of the neck. No intra-abdominal or pelvic lymphadenopathy. Stevie Domingo MD IMG CT ORDERABLES documented in this encounter Visit Diagnoses Diagnosis Hodgkin disease Hodgkin's disease, unspecified documented in this encounter Administered Medications Inactive Administered Medications - up to 3 most recent administrations Medication Order MAR Action Action Date Dose Rate Site iohexol (OMNIPAQUE) 350 mg/mL injection 17,500 mg 17,500 mg (50 mL), Oral, ONCE PRN, 1 dose, Starting on Wed10/16/11 at 0939, Until Wed10/16/11 at 0730, Per Protocol, Routine Given 10/16/2011 7:30 AM EDT 17,500 mg iohexol (OMNIPAQUE) 350 mg/mL injection 38,500 mg 38,500 mg (110 mL), Intravenous, ONCE PRN, 1 dose, Starting on Wed10/16/11 at 0939, Until Wed10/16/11 at 0950, Per Protocol, Routine Given 10/16/2011 9:50 AM EDT 38,500 mg documented in this encounter Care Teams Hull Builder Relationship Specialty Start Date End Date Reginald Nieto, SHEET METAL ENGINEER [address] [place] [address] PCP - General 09/30/11 10/05/13 documented as of this encounter
--- OUTSIDE RECORDS SUMMARY | 2024-01-24 11:03 | XMS_ITS | Encounter Summary ---
Author Organization [facility] Address [facility] [place] [address] Care Team Providers Care Area Cleaner Name Role Phone Reginald Nieto APRN Primary Care Provide r Reason for Visit * Reason Comments Follow-up Encounter Details Date Type Department Care Team (Late st Contact Info) Description 12/02/2011 10:30 AM EDT Follow-Up Hematology Oncology at [address] [phone] Josh Gonzalez MD [facility] HEMATOLOGY/[place] [address] Hodgkin's disease in remission (Primary Dx) Discharge Disposition: Home Social History [...] Sign Reading Time Taken Comments Blood Pressure 95/45 12/02/2011 10:08 AM EDT Pulse 85 12/02/2011 10:08 AM EDT Temperature 36.6 ??C (97.9 ??F) 12/02/2011 10:08 AM E DT Respiratory Rate 18 12/02/2011 10:08 AM EDT Oxygen Saturation 100% 12/02/2011 10:08 AM EDT Inhaled Oxygen Concentration - - Weight 64 kg (141 lb 1.5 oz) 12/02/2011 10:08 AM EDT Height 175.9 cm (5' 9.25) 12/02/2011 10:08 AM E DT Body Mass Index 20.68 12/02/2011 10:08 AM EDT documented in this encounter Progress Notes * Josh Gonzalez MD - 12/02/2011 9:50 AM EDT Problem list #1 Hodgkin's disease A histology: Classic Hodgkin's disease B PET scan shows stage IIA disease. 36 x 25 mm node in the left neck +4 x 5 mm node in the anteriormediastinum on the left side C. started chemotherapy with the ABVD on protocol [id number], October 20, 2011 #2 smoker Medication list [...] history This is day 15 of cycle #2, his fourth dose of ABVD. His been no interval change. He continues to have a mild neuropathy in his hands and feet but it doesn't bother him very much. He can button things using his hands. It does not interrupt his sleep. He is not terribly concerned about it. He continues to work half a day 5 days a week. He has some mild fatigue as the day goes on but it doesn't bother him. He has some mild nausea on day 4 after chemotherapy without vomiting. All of this is typical for ABVD side effects. He does continue to smoke a half [...] does not have children. He works at [employer] in [place]. Note that he does smoke. Labs White count 14.6 hemoglobin 14.5 platelets 198 ANC 12,000 Creatinine 0.8 calcium 8.5 albumin 4.0 total protein 7.0 alkaline phosphatase 132 ALT 17 AST 31 Assessment Overall is doing well and this will be his fourth dose of ABVD. Clinically he is in a complete remission and has been since about the second dose. His PET scan is due in December 09. He can call me that Wednesday to check on the results. I will see him back here on the to begin cycle #3. His neuropathy is mild at this point but if necessary we could stop the vincristine. Note that he does continue to smoke and we talked about this again. 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 He is smoking about one half pack per day and doesn't think he can stop. He continues to work half a day and feels good other than some mild fatigue which is attributed to the chemotherapy. Adverse events: None other than expected chemotherapy toxicity of neutropenia and neuropathy in his feet. All are secondary to ABVD chemotherapy Neuropathy: Grade 1, does not interfere with ADLs nor interrupt his sleep. This is from vincristine chemotherapy Nausea This is from his chemotherapy and we will add emend to the Aloxi. This is mild only grade 1 with novomiting occurs on day 4 after chemotherapy Plan #1 receive day 15 cycle #2 ABVD today #2 add emend to Aloxi as a premed #3 PET scan scheduled for December 09 #4 decrease Neulasta to 4 mg subcutaneous on day 2 after chemotherapy This note was created using [employer] voice recognition software. It was reviewed for major content. However, there may be multiple small discrepancies and errors due to the voice recognition aspects of the software. documented in this encounter Procedure Notes * Provider, Scanning - 12/04/2011 7:51 AM EDTAssociated Order(s): SCAN DOC: CHEMOTHERAPY documented in this encounter Plan of Treatment Not on file documented as of this encounter Procedures Procedure Name Priority Date/Time Associated Diagnosis Comments CHEMOTHERAPY SCAN 12/04/2011 7:5 1 AM EDT documented in this encounter Results * SCAN DOC: CHEMOTHERAPY (12/04/2011 7:51 AM EDT) Narrative 12/04/2011 7:51 AM EDT Procedure Note Provider, Scanning - 12/04/2011 7:51 AM EDT Scanning Provider MEDIA MGR SCAN EXT O RDR/RSLT documented in this encounter Visit Diagnoses Diagnosis Hodgkin's disease in remission- Primary Hodgkin's disease, unspecified documented in this encounter Care Teams Area Cleaner Relationship Specialty Start Date End Date Reginald Nieto, NETWORK APPLICATIONS SPECIALIST [address] [place] [address] PCP - General 09/30/11 10/05/13 documented as of this encounter
--- OUTSIDE RECORDS SUMMARY | 2024-01-24 11:03 | XMS_ITS | Encounter Summary ---
Author Organization [facility] [address] Care Team Providers Care Supervising Editor News Reel Name Role Phone Reginald Nieto APRN Primary Care Provide r Encounter Details Date Type Department Care Team (Late st Contact Info) Description 10/19/2011 Telephone Hematology [place] [phone] Day Stahl, RN Social History Tobacco Use Types Packs/Day [...] Telephone Encounter - Day Stahl RN - 10/19/2011 2:42 PM EDT Research Nurse Telephone Note [id number]: A Phase II Trial of Response-Adapted Chemotherapy Based on Positron Emission Tomography forNon-Bulky Stage I or II Hodgkin Lymphoma Pt completed pre-treatment tests, as required by protocol on Wednesday10/16/11. All results reviewed with Dr. Domingo, who confirms that pt meets all eligibility criteria for treatment on [id number]. Called pt with pending appts to initiate treatment on H05531; Cycle 1 Day 1 Wed10/21/11. Will provide calendar of planned treatment dates to pt on 10/21/11. Am attempting to arrange Day 15 treatment in [facility], with Dr Gonzalez, per patient preference. Pt in agreement with this plan. documented in this encounter Plan of Treatment Not on file documented as of this encounter Visit Diagnoses Not on filedocumented in this encounter Care Teams Supervising Editor News Reel Relationship Specialty Start Date End Date Reginald Nieto APRN [address] [place] [address] PCP - General 09/30/11 10/05/13 documented as of this encounter
--- OUTSIDE RECORDS SUMMARY | 2024-01-24 11:03 | XMS_ITS | Encounter Summary ---
Author Organization [facility] Address [facility] [place] [address] Care Team Providers Care Utility Helicopter Repairer Name Role Phone Reginald Nieto APRN Primary Care Provide r Encounter Details Date Type Department Care Team (Latest Contact Info) Description 10/21/2011 9:15 AM EDT Laboratory Appointment Hematology [place] [phone] CLINIC, Stevie Page MD [facility] [place] [address] Hodgkin disease Discharge Disposition: Home Social History [...] Date/Time Associated Diagnosis Comments DIFFERENTIAL, AUTOMATED Routine 10/21/2011 8:44 AM EDT CBC (WITH DIFF) Routine 10/21/2011 8:44 AM EDT Hodgkin disease COMPREHENSIVE METABOLIC PANEL Routine 10/21/2011 8:44 AM EDT Hodgkin disease documented in this encounter Results * (ABNORMAL) DIFFERENTIAL, AUTOMATED (10/21/2011 8:44 AM EDT) Neutrophil % 79.3(H) 34.0 - 71.0 % CERNER MILLENNIUM Neutrophil Absolute 7.22(H) 1.50 - 6.30 x10(3)/mc L CERNER MILLENNIUM Lymph % 14.2(L) 19.0 - 53.0 % CERNER MILLENNIUM Lymphocytes Abs 1.3 1.0 - 3.6 x10(3)/mc L CERNER MILLENNIUM Monocyte % 5.5 4.0 - 13.0 % CERNER MILLENNIUM Monocyte Abs 0.5 0.2 - 1.0 x10(3)/mc L CERNER MILLENNIUM Eos % 0.8 0.0 - 7.0 % CERNER MILLENNIUM Eosinophils Abs 0.1 0.0 - 0.5 x10(3)/mc L CERNER MILLENNIUM Basophil % 0.1 0.0 - 2.0 % CERNER MILLENNIUM Baso Absolute 0.0 0.0 - 0.2 x10(3)/mc L CERNER MILLENNIUM Immature Gran % 0.10 0.00 - 0.66 % CERNER MILLENNIUM Comment: Immature granulocytes(IG's)percentage and absolute count will include metamyelocytes, myelocytes, and promyelocytes. Blood smears from CBCs yielding IG's will be scanned manually for concordance. If this scan disagrees with the automated IG or if promyelocytes are noted, a manual differential will be performed. Immature Gran Absolute 0.01 0.00 - 0.05 x10(3)/mc L [facility]ARIAN[facility] Blood specimen (specimen) 10/21/2011 8:44 AM EDT 10/21/2011 8:53 AM EDT Stevie Domingo MD HEMATOLOGY ORDERABLE S [facility] * Comprehensive metabolic panel (non-fasting) (10/21/2011 8:44 AM EDT) Pathologist [facility] Glucose 69 60 - 199 mg/dL [facility] DARIAN[facility] Comment:Diabetes: >=200 mg/d L plus symptoms Blood Urea Nitrogen 14 10 - 20 mg/dL [facility] Creatinine 0.90 0.80 - 1.50 mg/dL CERNER MILLENNIUM Comment: Please note that the pediatric reference intervals supplied above were not validated at [facility]. Results from pediatric patients should be interpreted in conjunction to the patient's age, height and muscle mass. Sodium 142 135 - 145 mmol/L CERNER MILLENNIUM Potassium 4.1 3.5 - 5.0 mmol/L CERNER MILLENNIUM Comment: Please note: ??Patients with WBC >100,000 may have falsely elevated Potassium levels. ??For accurate Potassium quantification in these patients send serum separator tube (gold top) for subsequent determinations. ??Contact the Clinical Chemistry Laboratory if there are any questions. Chloride 102 98 - 107 mmol/L CERNER MILLENNIUM Carbon Dioxide 31 22 - 31 mmol/L CERNER MILLENNIUM Anion Gap 9 5 - 15 mmol/L CERNER MILLENNIUM Calcium 9.6 8.5 - 10.5 mg/dL CERNER MILLENNIUM Protein, Total 6.9 6.4 - 8.3 gm/dL CERNER MILLENNIUM Albumin 4.7 3.2 - 5.2 gm/dL CERNER MILLENNIUM Aspartate Aminotransferase 14 0 - 39 unit/L CERNER MILLENNIUM Alanine Aminotransferase 19 0 - 55 unit/L CERNER MILLENNIUM Alkaline Phosphatase 83 40 - 120 unit/L CERNER MILLENNIUM Bilirubin, Total 0.3 0.2 - 1.3 mg/dL CERNER MILLENNIUM Bilirubin, [...] J Am Soc Nephrol;6:1963-72. Blood specimen (specimen) 10/21/2011 8:44 AM EDT 10/21/2011 8:53 AM EDT Narrative Resulting Agency Comment Spec In Lab Stevie Domingo MD CHEMISTRY ORDERABLES [facility] * CBC (with Diff) (10/21/2011 8:44 AM EDT) White Blood Cell 9.1 4.0 - 10.0 x10(3)/mcL CERNER MILLENNIUM Red Blood Cell 5.23 4.63 - 6.08 x10(6)/mcL CERNER MILLENNIUM Hemoglobin 15.8 13.7 - 17.5 gm/dL CERNER MILLENNIUM Hematocrit 47.0 40.0 - 51.0 % CERNER MILLENNIUM Mean Cell Volume 89.9 79.0 - 92.0 fL CERNER MILLENNIUM Mean Cell Hemoglobin 30.2 25.6 - 32.2 pg CERNER MILLENNIUM Mean Cell Hemoglobin Concentration 33.6 32.0 - 36.5 gm/dL CERNER MILLENNIUM Platelet 218 145 - 370 x10(3)/mcL [facility] Standard Deviation 42.5 35.0 - 46.0 fL [facility] coefficient of variation 12.9 10.9 - 14.4 % [facility] Mean Platelet Volume 11.1 9.0 - 12.0 fL [facility] Blood specimen (specimen) 10/21/2011 8:44 AM EDT 10/21/2011 8:53 AM EDT Narrative Resulting Agency Comment Spec In Lab Stevie Domingo MD HEMATOLOGY ORDERABLE S [facility] documented in this encounter Visit Diagnoses Diagnosis Hodgkin disease Hodgkin's disease, unspecified documented in this encounter Care Teams Utility Helicopter Repairer Relationship Specialty Start Date End Date Reginald Nieto APRN [address] [place] [address] PCP - General 09/30/11 10/05/13 documented as of this encounter
--- OUTSIDE RECORDS SUMMARY | 2024-01-24 11:03 | XMS_ITS | Encounter Summary ---
Author Organization [facility] Address [facility] [place] [address] Care Team Providers Care Laminate Floor Installer Name Role Phone Reginald Nieto APRN Primary Care Provide r Encounter Details Date Type Department Care Team (Latest Contact Info) Description 10/16/2011 10:54 AM EDT - 10/16/2011 11:59 PM EDT [place] [phone] Stevie Domingo MD [facility] [address] [place] [address] Hodgkin disease Discharge Disposition: Home Social History [...] Date/Time Associated Diagnosis Comments DIFFERENTIAL, AUTOMATED Routine 10/16/2011 11:08 AM EDT HIV SCREEN, 4TH GENERATION ([facility]/CGP/APD/NLH) Routine 10/16/2011 11:08 AM EDT Hodgkin disease SEDIMENTATION RATE Routine 10/16/2011 11 :08 AM EDT Hodgkin disease CBC (WITH DIFF) Routine 10/16/2011 11:08 AM EDT Hodgkin disease LACTATE DEHYDROGENASE Routine 10/16/2011 11:08 AM EDT Hodgkin disease COMPREHENSIVE METABOLIC PANEL Routine 10/16/2011 11:08 AM EDT Hodgkin disease documented in this encounter Results * (ABNORMAL) DIFFERENTIAL, AUTOMATED (10/16/2011 11:08 AM EDT) Neutrophil % 73.2(H) 34.0 - 71.0 % CERNER MILLENNIUM Neutrophil Absolute 5.76 1.50 - 6.30 x10(3)/mc L CERNER MILLENNIUM Lymph % 20.4 19.0 - 53.0 % CERNER MILLENNIUM Lymphocytes Abs 1.6 1.0 - 3.6 x10(3)/mc L CERNER MILLENNIUM Monocyte % 4.2 4.0 - 13.0 % CERNER MILLENNIUM Monocyte Abs 0.3 0.2 - 1.0 x10(3)/mc L CERNER MILLENNIUM Eos % 1.8 0.0 - 7.0 % CERNER MILLENNIUM Eosinophils Abs 0.1 0.0 - 0.5 x10(3)/mc L CERNER MILLENNIUM Basophil % 0.3 0.0 - 2.0 % CERNER MILLENNIUM Baso Absolute 0.0 0.0 - 0.2 x10(3)/mc L [facility] Immature Gran % 0.10 0.00 - 0.66 % [facility] Comment: Immature granulocytes(IG's)percentage and absolute count will include metamyelocytes, myelocytes, and promyelocytes. Blood smears from CBCs yielding IG's will be scanned manually for concordance. If this scan disagrees with the automated IG or if promyelocytes are noted, a manual differential will be performed. Immature Gran Absolute 0.01 0.00 - 0.05 x10(3)/mc L [facility] Blood specimen (specimen) 10/16/2011 11:08 AM EDT 10/16/2011 11:10 AM EDT Stevie Domingo MD HEMATOLOGY ORDERABLE S Performing Organization Address [facility] Phone Number [facility] * HIV (10/16/2011 11:08 AM EDT) HIV 1/2 Ab Negative [facility] Blood specimen (specimen) 10/16/2011 11:08 AM EDT 10/16/2011 11:10 AM EDT Narrative Resulting Agency Comment Spec In Lab Stevie Domingo MD CHEMISTRY ORDERABLES Performing Organization Address [facility] Phone Number [facility] * Sedimentation rate (10/16/2011 11:08 AM EDT) Sedimentation Rate Automated 3 0 - 15 mm/hr [facility] Blood specimen (specimen) 10/16/2011 11:08 AM EDT 10/16/2011 11:10 AM EDT Narrative Resulting Agency Comment Spec In Lab Stevie Domingo MD HEMATOLOGY ORDERABLE S Performing Organization Address [facility] Phone Number [facility] * Lactate Dehydrogenase (10/16/2011 11:08 AM EDT) Lactate Dehydrogenase 127 110 - 220 unit/L [facility] Blood specimen (specimen) 10/16/2011 11:08 AM EDT 10/16/2011 11:10 AM EDT Narrative Resulting Agency Comment Spec In Lab Stevie Domingo MD CHEMISTRY ORDERABLES CERNER MILLENNIUM * (ABNORMAL) Comprehensive metabolic panel (non-fasting) (10/16/2011 11:08 AM EDT) Glucose 101 60 - 199 mg/dL CERNER MILLENNIUM Comment:Diabetes: >=200 mg/d L plus symptoms Blood Urea Nitrogen 10 10 - 20 mg/dL CERNER MILLENNIUM Creatinine 0.73(L) 0.80 - 1.50 mg/dL CERNER MILLENNIUM Comment: Please note that the pediatric reference intervals supplied above were not validated at [facility]. Results from pediatric patients should be interpreted in conjunction to the patient's age, height and muscle mass. Sodium 139 135 - 145 mmol/L CERNER MILLENNIUM Potassium 4.3 3.5 - 5.0 mmol/L CERNER MILLENNIUM Comment: Please note: ??Patients with WBC >100,000 may have falsely elevated Potassium levels. ??For accurate Potassium quantification in these patients send serum separator tube (gold top) for subsequent determinations. ??Contact the Clinical Chemistry Laboratory if there are any questions. Chloride 102 98 - 107 mmol/L CERNER MILLENNIUM Carbon Dioxide 28 22 - 31 mmol/L CERNER MILLENNIUM Anion Gap 9 5 - 15 mmol/L CERNER MILLENNIUM Calcium 9.1 8.5 - 10.5 mg/dL CERNER MILLENNIUM Protein, Total 6.7 6.4 - 8.3 gm/dL CERNER MILLENNIUM Albumin 4.5 3.2 - 5.2 gm/dL CERNER MILLENNIUM Aspartate Aminotransferase 16 0 - 39 unit/L CERNER MILLENNIUM Alanine Aminotransferase 19 0 - 55 unit/L CERNER MILLENNIUM Alkaline Phosphatase 76 40 - 120 unit/L CERNER MILLENNIUM Bilirubin, [...] J Am Soc Nephrol;6:1963-72. Blood specimen (specimen) 10/16/2011 11:08 AM EDT 10/16/2011 11:10 AM EDT Narrative Resulting Agency Comment Spec In Lab Stevie Domingo MD CHEMISTRY ORDERABLES [facility] * CBC (with Diff) (10/16/2011 11:08 AM EDT) White Blood Cell 7.9 4.0 - 10.0 x10(3)/mcL CERNER MILLENNIUM Red Blood Cell 5.02 4.63 - 6.08 x10(6)/mcL CERNER MILLENNIUM Hemoglobin 15.4 13.7 - 17.5 gm/dL CERNER MILLENNIUM Hematocrit 45.0 40.0 - 51.0 % CERNER MILLENNIUM Mean Cell Volume 89.6 79.0 - 92.0 fL CERNER MILLENNIUM Mean Cell Hemoglobin 30.7 25.6 - 32.2 pg CERNER MILLENNIUM Mean Cell Hemoglobin Concentration 34.2 32.0 - 36.5 gm/dL CERNER MILLENNIUM Platelet 192 145 - 370 x10(3)/mcL CERNER MILLENNIUM RDW Standard Deviation 42.3 35.0 - 46.0 fL CERNER MILLENNIUM RDW coefficient of variation 13.1 10.9 - 14.4 % CERNER MILLENNIUM Mean Platelet Volume 11.2 9.0 - 12.0 fL CERNER MILLENNIUM Blood specimen (specimen) 10/16/2011 11:08 AM EDT 10/16/2011 11:10 AM EDT Narrative Resulting Agency Comment Spec In Lab Stevie Domingo MD HEMATOLOGY ORDERABLE S [facility] documented in this encounter Visit Diagnoses Diagnosis Hodgkin disease Hodgkin's disease, unspecified documented in this encounter Care Teams Laminate Floor Installer Relationship Specialty Start Date End Date Reginald Nieto APRN [address] [place] [address] PCP - General 09/30/11 10/05/13 documented as of this encounter
--- OUTSIDE RECORDS SUMMARY | 2024-01-24 11:03 | XMS_ITS | Encounter Summary ---
Author Organization [facility] Address [facility] [place] [address] Care Team Providers Care Cash Management Officer Name Role Phone Reginald Nieto APRN Primary Care Provide r Encounter Details Date Type Department Care Team (Late st Contact Info) Description 12/14/2011 Orders Only Hematology Oncology at [address] [phone] Sherry Collazo, RN Social History Tobacco Use Types Packs/Day [...] on filedocumented in this encounter Care Teams Cash Management Officer Relationship Specialty Start Date End Date Reginald Nieto APRN [address] [place] [address] PCP - General 09/30/11 10/05/13 documented as of this encounter
--- OUTSIDE RECORDS SUMMARY | 2024-01-24 11:03 | XMS_ITS | Encounter Summary ---
Author Organization [facility] Address [facility] [place] [address] Care Team Providers Care Cook Frozen Dessert Name Role Phone Reginald Nieto APRN Primary Care Provide r Encounter Details Date Type Department Care Team (Late st Contact Info) Description 10/21/2011 External Results [facility] Inpatient Pharmacy Stevie Domingo MD [facility] [place] [address] Social History Tobacco Use Types Packs/Day Years [...] on filedocumented in this encounter Care Teams Cook Frozen Dessert Relationship Specialty Start Date End Date Reginald Nieto APRN [address] [place] [address] PCP - General 09/30/11 10/05/13 documented as of this encounter
--- OUTSIDE RECORDS SUMMARY | 2024-01-24 11:03 | XMS_ITS | Encounter Summary ---
Author Organization [facility] Address [facility] [place] [address] Care Team Providers Care Electricity Trading Analyst Name Role Phone Reginald Nieto APRN Primary Care Provide r Reason for Visit * Reason Comments Lymphoma neulasta shot Encounter Details Date Type Department Care Team (Late st Contact Info) Description 11/19/2011 11:00 AM EDT Office Visit Hematology Oncology at [address] [phone] CLINIC, DR [facility] HEM/ONC Hodgkin lymphoma (Primary Dx) Discharge Disposition: Home [...] Progress Notes * Lo Love RN - 11/19/2011 11:13 AM EDT Treatment Started:1030 Treatment Ended:1100 Diagnosis: Hodgkins lymphoma Protocol CALGB [id number] Treatment:neulasta sc 6 mg left abdomen Pt having nausea and vomiting this AM did take ondansetron and ativan. Spoke with Josh Gonzalez MD as pt received aloxi yesterday, compazine ordered 10 mg every 6 hours PRN and can have ativan if needed every 6 hours. Written instructions given to pt and reminded to call if he does not get better. Pt agrees with plan. documented in this encounter Plan of Treatment Not on file documented as of this encounter Visit Diagnoses Diagnosis Hodgkin lymphoma- Primary Hodgkin's disease, unspecified documented in this encounter Administered Medications Inactive Administered Medications - up to 3 most recent administrations Medication Order MAR Action Action Date Dose Rate Site pegfilgrastim (NEULASTA) injection 6 mg 6 mg, Subcutaneous, ONCE, 1 dose, On Veronica 11/19/11 at 1100, Routine Given 11/19/2011 10:45 AM EDT 6 mg documented in this encounter Care Teams Electricity Trading Analyst Relationship Specialty Start Date End Date Reginald Nieto, RETAIL CLIENT SOLUTIONS ANALYST [address] [place] [address] PCP - General 09/30/11 10/05/13 documented as of this encounter
--- OUTSIDE RECORDS SUMMARY | 2024-01-24 11:03 | XMS_ITS | Encounter Summary ---
Author Organization [facility] Address [facility] [place] [address] Care Team Providers Care Partition Making Machine Operator Name Role Phone Reginald Nieto APRN Primary Care Provide r Encounter Details Date Type Department Care Team (Latest Contact Info) Description 10/16/2011 11:18 AM EDT - 10/16/2011 11:59 PM EDT Hospital Encounter XRay at [address] [place] [phone] CLINIC, Stevie Page MD [facility] [place] [address] Hodgkin disease Discharge Disposition: Home Social History [...] Comments XR CHEST PA AND LATERAL Routine 10/16/2011 11:24 AM EDT Hodgkin disease documented in this encounter Results * XR chest routine PA & lateral (10/16/2011 11:24 AM EDT) Anatomical Region Laterality Modality Chest N/A Radiographic Catina ging 10/16/2011 11:2 4 AM EDT Narrative 10/16/2011 11:40 AM EDT Examination CHEST ROUTINE PA+LAT Clinical History Reason for exam and clinical history: New Dx Hodgkin Lymphoma, pre-chemo evaluation; Comparison None Technique Findings The lungs are well inflated and clear. The cardiomediastinal silhouette appears normal. ??Specifically, there is no evidence of lymph node enlargement. ??No pleural effusion or other abnormality is seen. Impression Normal Procedure Note Moy Gambino MD - 10/16/2011 Examination CHEST ROUTINE PA+LAT Clinical History Reason for exam and clinical history: New Dx Hodgkin Lymphoma, pre-chemo evaluation; Comparison None Technique Findings The lungs are well inflated and clear. The cardiomediastinal silhouetteappears normal. Specifically, there is no evidence of lymph node enlargement. No pleural effusion or other abnormality is seen. Impression Normal Stevie Domingo MD IMG DX ORDERABLES documented in this encounter Visit Diagnoses Diagnosis Hodgkin disease Hodgkin's disease, unspecified documented in this encounter Care Teams Partition Making Machine Operator Relationship Specialty Start Date End Date Reginald iNeto, FULFILLMENT SPECIALIST [address] [place] [address] PCP - General 09/30/11 10/05/13 documented as of this encounter
--- OUTSIDE RECORDS SUMMARY | 2024-01-24 11:03 | XMS_ITS | Encounter Summary ---
Author Organization [facility] Address [facility] [place] [address] Care Team Providers Care Zinc Etcher Name Role Phone Reginald Nieto APRN Primary Care Provide r Encounter Details Date Type Department Care Team (Late st Contact Info) Description 12/02/2011 Notes Only Hematology Oncology at [address] [phone] Katlyn Vann, USER EXPERIENCE ARCHITECT OFFICE OF CARE MANAGEMENT Social History Tobacco [...] Progress Notes * Katlyn Vann MSW - 12/03/2011 8:45 AM EDT Follow up with pt on 12-02-11 during infusion. Pt indicated he is doing fairly well. He continues towork as much as he can and his place of work continues to be very supportive. Pt indicated he has alot of support from his and other family members. He indicated his mood is fairly stable. He does find it very helpful to not have to much time alone. His extended family that live near him are helping with meals, transportation and companionship. Pt reports his does well when he is doingwell. Offered support. Will continue to follow for support and resources. documented in this encounter Plan of Treatment Not on file documented as of this encounter Visit Diagnoses Not on filedocumented in this encounter Care Teams Zinc Etcher Relationship Specialty Start Date End Date Reginald Nieto APRN [address] [place] [address] PCP - General 09/30/11 10/05/13 documented as of this encounter
--- OUTSIDE RECORDS SUMMARY | 2024-01-24 11:03 | XMS_ITS | Encounter Summary ---
Author Organization [facility] [place] [address] Care Team Providers Care New Car Make Ready Worker Name Role Phone Reginald Nieto APRN Primary Care Provide r Encounter Details Date Type Department Care Team (Late st Contact Info) Description 11/19/2011 Telephone Hematology [place] [phone] Day Stahl RN Social History Tobacco Use [...] Telephone Encounter - Day Stahl RN - 11/19/2011 10:10 AM EDT Research Nurse Telephone Note Cycle 2, Day 2 [id number]: A Phase II Trial of Response-Adapted Chemotherapy Based on Positron Emission Tomography forNon-Bulky Stage I or II Hodgkin Lymphoma C1D1: 10/21/11 ([facility]) C1D15: 11/04/11 ([facility]) C2D1: 11/18/11 ([facility]) Call placed to pt to inquire at status, Pt reports doing well overall, pleased with limited toxicities thus far. Pleased that he is not losing hair (I am babying it!). As noted in recent eDH notes, tingling in feet and axillae fungal infection. Able to articulate remainder of plan for Cycle 2. Instructed pt on re-staging exams to be completed 12/10/11 at [facility]. AE Table (for non-laboratory events), starting 10/21/11 (CTCAE v4.0): Date of onset Grade at onset Highest grade Date resolved Interventions nausea 10/21/11 1 1 10/24/11 Ondansetron, timing of meals Injection site rxn 10/31/11 1 1 11/18/11 Warm compress, monitor Peripheral neuropathy 11/11/11 1 Monitor, remove socks for comfort Skin rash, bilateral axillae 11/16/11 1 Lotrimin cream, monitor Plan: - Cycle 2 Day 15 ABVD 12/02/11; lab work 12/01/11 - Re-staging 12/10/11 at [facility] - Subsequent treatment dependent on results of re-staging (Section 7.1): CR, MO, or SD with PET negative will receive 2 additional cycles ABVD CR, MO, or SD with PET positive will receive 2 cycles escalated BEACOPP followed by involved field radiotherapy Pt in agreement with this plan, and agrees to call with questions, concerns. documented in this encounter Plan of Treatment Not on file documented as of this encounter Visit Diagnoses Not on filedocumented in this encounter Care Teams New Car Make Ready Worker Relationship Specialty Start Date End Date Reginald Nieto APRN [address] [place] [address] PCP - General 09/30/11 10/05/13 documented as of this encounter
--- OUTSIDE RECORDS SUMMARY | 2024-01-24 11:03 | XMS_ITS | Encounter Summary ---
Author Organization [facility] [place] [address] Care Team Providers Care Rope Making Machine Operator Name Role Phone Reginald Nieto APRN Primary Care Provide r Encounter Details Date Type Department Care Team (Late st Contact Info) Description 10/22/2011 Telephone Hematology [place] [phone] Day Stahl, RN Social History Tobacco Use [...] Miscellaneous Notes * Telephone Encounter - Day Stahl, RN - 10/22/2011 12:20 PM EDT Research Nurse Telephone Note [id number]: A Phase II Trial of Response-Adapted Chemotherapy Based on Positron Emission Tomography forNon-Bulky Stage I or II Hodgkin Lymphoma C1D1: 10/21/11 Call placed to pt to inquire at status, following Cycle 1 Day 1 ABVD yesterday. Reports feeling a bit tired today. Also, states, he woke with a tight chest ... and I seem to be a bit winded when I do things. Denies actual chest pain. Also remarks that he experienced nausea this am, took prn ondansetron as instructed, yet vomited approx 5 min after taking medication. Reports he is recording quest ions, and sx, on paper as they occur. Denies fever, and confirms that he is checking his temperature. Instructions: Recommended pt take prn ondansetron 30-40 min prior to meals today, and to take as soon as any sx of nausea occur. Instructed to seek urgent care with signif SOB, chest pain, uncontrolled vomiting, temp >100.4, bleeding. AE Table (for non-laboratory events), starting 10/21/11 (CTCAE v4.0): Date of onset Grade at onset Highest grade Date resolved Interventions nausea 10/21/11 1 Ondansetron, timing of meals Plan: - Cycle 1 Day 15 ABVD 11/04/11, either at [facility] or [facility]; will notify pt immediately once locale is determined, Pt in agreement with this plan, and agrees to call with questions, concerns. documented in this encounter Plan of Treatment Not on file documented as of this encounter Visit Diagnoses Not on filedocumented in this encounter Care Teams Rope Making Machine Operator Relationship Specialty Start Date End Date Reginald Nieto APRN [address] [place] [address] PCP - General 09/30/11 10/05/13 documented as of this encounter
--- OUTSIDE RECORDS SUMMARY | 2024-01-24 11:03 | XMS_ITS | Encounter Summary ---
Author Organization [facility] [place] [address] Care Team Providers Care Contact Center Engineer Name Role Phone Reginald Nieto APRN Primary Care Provide r Encounter Details Date Type Department Care Team (Latest Contact Info) Description 10/16/2011 10:02 AM EDT - 10/16/2011 11:59 PM EDT Hospital Encounter [place] [phone] SCHEDULE 1, PFT Hodgkin lymphoma (Primary Dx) Discharge Disposition: Home [...] daily. 012 documented as of this encounter Procedure Notes * Phil Govea MD - 10/16/2011 12:22 PM EDTAssociated Order(s): PFT SCREEN (PULMONARY FUNCTION TEST); SCAN DOC: PFT Pulmonary Function Test Interpretation (pertinent boxes checked) FEV1 is normal. FVC is normal. The FEV1/FVC ratio is normal. Uncorrected single-breath diffusion capacity for CO was [X] normal [] reduced. Resting oxyhemoglobin saturation on air was [X] normal [] reduced Impression: Normal spirometry and diffusion capacity. documented in this encounter Plan of Treatment Not on file documented as of this encounter Procedures Procedure Name Priority Date/Time Associated Diagnosis Comments PFT SCAN Routine 10/16/2011 12:22 PM EDT PFT SCREEN (DLCO,OXIMETRY,SPIR OMETRY) Routine 10/16/2011 12:22 PM EDT documented in this encounter Results * PFT Screen (Pulmonary Function Test) (10/16/2011 12:22 PM EDT) Narrative Phil Govea MD - 10/16/2011 12:22 PM EDT Pulmonary Function Test Interpretation (pertinent boxes checked) FEV1 is normal. ??FVC is normal. ??The FEV1/FVC ratio is normal. Uncorrected single-breath diffusion capacity for CO was [X] normal [] reduced. Resting oxyhemoglobin saturation on air was [X] normal [] reduced Impression: Normal spirometry and diffusion capacity. Procedure Note Phil Govea MD - 10/16/2011 12:22 PM EDT Pulmonary Function Test Interpretation (pertinent boxes checked) FEV1 is normal. FVC is normal. The FEV1/FVC ratio is normal. Uncorrected single-breath diffusion capacity for CO was [X] normal []reduced. Resting oxyhemoglobin saturation on air was [X] normal [] reduced Impression: Normal spirometry and diffusion capacity. Stevie Domingo MD PROCEDURE/MINOR SURG ICAL ORDERABLES * Scan Doc: PFT (10/16/2011 12:22 PM EDT) Narrative Phil Govea MD - 10/16/2011 12:22 PM EDT Pulmonary Function Test Interpretation (pertinent boxes checked) FEV1 is normal. ??FVC is normal. ??The FEV1/FVC ratio is normal. Uncorrected single-breath diffusion capacity for CO was [X] normal [] reduced. Resting oxyhemoglobin saturation on air was [X] normal [] reduced Impression: Normal spirometry and diffusion capacity. Procedure Note Phil Govea MD - 10/16/2011 12:22 PM EDT Pulmonary Function Test Interpretation (pertinent boxes checked) FEV1 is normal. FVC is normal. The FEV1/FVC ratio is normal. Uncorrected single-breath diffusion capacity for CO was [X] normal []reduced. Resting oxyhemoglobin saturation on air was [X] normal [] reduced Impression: Normal spirometry and diffusion capacity. Reginald Nieto APRN MEDIA MGR SCA N EXT ORDR/RSLT documented in this encounter Visit Diagnoses Diagnosis Hodgkin lymphoma- Primary Hodgkin's disease, unspecified documented in this encounter Care Teams Contact Center Engineer Relationship Specialty Start Date End Date Reginald Nieto APRN [address] [place] [address] PCP - General 09/30/11 10/05/13 documented as of this encounter
--- OUTSIDE RECORDS SUMMARY | 2024-01-24 11:03 | XMS_ITS | Encounter Summary ---
Author Organization [facility] Address [facility] [place] [address] Care Team Providers Care Homebound Teacher Name Role Phone Reginald Nieto APRN Primary Care Provide r Encounter Details Date Type Department Care Team (Latest Contact Info) Description 10/21/2011 8:36 AM EDT - 10/21/2011 11:59 PM EDT Hospital [place] [phone] CLINIC, Stevie Page MD [facility] HEMATOLOGY [place] [address] Discharge Disposition: Home Social History Tobacco Use [...] mouth daily. 11/18/2011 co-enzyme Q-10 50 mg capsuleIndications:Hodg kin disease Take 50 mg by mouth daily. 11/18/2011 Cholecalciferol, Vitamin D3, (VITAMIN D-3) 1,000 unit ChewIndications:Hodgkin disease Take 1,000 Units by mouth daily. 11/18/2011 PEDIATRIC MULTIVIT COMB #19/FA (CHILDREN'S MULTI-VIT GUMMIES ORAL)Indications:Hodgki n disease Take by mouth daily. 012 documented as of this encounter Plan of Treatment Not on file documented as of this encounter Visit Diagnoses Not on filedocumented in this encounter Care Teams Homebound Teacher Relationship Specialty Start Date End Date Reginald Nieto APRN [address] [place] [address] PCP - General 09/30/11 10/05/13 documented as of this encounter
--- OUTSIDE RECORDS SUMMARY | 2024-01-24 11:03 | XMS_ITS | Encounter Summary ---
Author Organization [facility] [place] [address] Care Team Providers Care Sales Route Driver Helper Name Role Phone Reginald Nieto APRN Primary Care Provide r Reason for Visit * Reason Comments Chemotherapy ABVD Cycle 1, Day 1 Encounter Details Date Type Department Care Team (Late st Contact Info) Description 11/18/2011 12:30 PM EDT Office Visit Hematology Oncology at [address] [phone] CLINIC, DR [facility] HEM/ONC Hodgkin [...] Progress Notes * May Carbone RN - 11/18/2011 12:43 PM EDT INFUSION THERAPY ADMINISTRATION NOTES TIME TREATMENT STARTED: 1220 TIME TREATMENT ENDED: 1515 DIAGNOSIS: Hodgkin's Lymphoma PROTOCOL: CALGB 39722 CYCLE #: 2, day 1 REASON FOR VISIT: ABVD SUBJECTIVE King Dickerson offers no complaints. States very minimal nausea at home, takes occasional ondansetron with good affect. Does complain of feeling quite anxious when arriving to clinic and slightly nauseated. Requests some prn lorazepam. OBJECTIVE LAB DATA: Labs reviewed and found adequate for treatment. IF PAIN IS >5, INTERVENTION AND EFFECTIVENESS: n/a Pre administration: Chemotherapy orders independently verified for drug name, route, and dosage per patient's height, weight and BSA by May Carbone RN and Lo Love RN. REACTIONS (DESCRIPTION, TIME, INTERVENTION AND EFFECTIVENESS) none ASSESSMENT King Dickerson was awake, alert and he tolerated treatment well. 1330 Patient denies nausea and states anxiety has subsided. PLAN Return to clinic tomorrow for neulasta injection documented in this encounter Plan of Treatment [...] 18 Units, Intravenous, ONCE, 1 dose, On Wed11/18/11 at 1230, Administer over 30 Minutes, 1 unit = 1 mg New Bag 11/18/2011 1:58 PM EDT 18 Units 112 mL/hr dacarbazine (DTIC) 660 mg in dextrose 5% 316 mL chemo infusion 660 mg, Intravenous, ONCE, 1 dose, On Wed11/18/11 at 1230, Administer over 30 Minutes New Bag 11/18/2011 2:31 PM EDT 660 mg 632 mL/hr DOXOrubicin (ADRIAMYCIN) chemo injection 44 mg 44 mg, Intravenous, ONCE, 1 dose, On Wed11/18/11 at 1230, Administer over 5 Minutes, Vesicant/irritant. Avoid extravasation Given 11/18/2011 1:43 PM EDT 44 mg 264 mL/hr LORazepam (ATIVAN) injection 0.5 mg 0.5 mg, Intravenous, ONCE, 1 dose, On Wed11/18/11 at 1500, Routine Given 11/18/2011 1:13 PM EDT 0.5 mg palonosetron (ALOXI) injection 0.25 mg 0.25 mg, Intravenous, ONCE, 1 dose, On Wed11/18/11 at 1230, Routine Given 11/18/2011 12:52 PM EDT 0.25 mg sodium chloride 0.9% infusion 500 mL, Intravenous, ONCE, 1 dose, On Wed11/18/11 at 1230, With chemo New Bag 11/18/2011 1:36 PM EDT 500 mLs mL/hr vinBLAStine (VELBAN) chemo injection 11 mg 11 mg, Intravenous, ONCE, 1 dose, On Wed11/18/11 at 1230, Administer over 5 Minutes, FOR IV USE ONLY. FATAL IF GIVEN BY OTHER ROUTES. Vesicant/irritant Avoid extravasation Given 11/18/2011 1:36 PM EDT 11 mg 132 mL/hr documented in this encounter Care Teams Sales Route Driver Helper Relationship Specialty Start Date End Date Reginald Nieto APRN [address] [place] [address] PCP - General 09/30/11 10/05/13 documented as of this encounter
--- OUTSIDE RECORDS SUMMARY | 2024-01-24 11:03 | XMS_ITS | Encounter Summary ---
Author Organization [facility] Address [facility] [place] [address] Care Team Providers Care Nocturnist Physician Name Role Phone Reginald Nieto APRN Primary Care Provide r Reason for Visit * Reason Comments Chemotherapy Encounter Details Date Type Department Care Team (Latest Contact Info) Description 10/21/2011 8:36 AM EDT - 10/21/2011 11:59 PM EDT Hospital Encounter Hematology [place] [address] INFUSION THERAPY, MEDS None Josh Gonzalez MD [facility] HEMATOLOGY/[place] [address] Hodgkin disease Discharge Disposition: Home Social History [...] Sign Reading Time Taken Comments Blood Pressure 123/60 10/21/2011 4:10 PM EDT Pulse 75 10/21/2011 4:10 PM EDT Temperature 36.4 ??C (97.5 ??F) 10/21/2011 4:10 PM ED T Respiratory Rate 16 10/21/2011 4:10 PM EDT e asy Oxygen Saturation 100% 10/21/2011 4:10 PM EDT room air Inhaled Oxygen Concentration - - Weight - - Height - - Body Mass Index - - documented in this encounter Medications at Time of Discharge [...] daily. 012 documented as of this encounter Progress Notes * Ty Winters RN - 10/21/2011 12:57 PM EDT Patient Name: King Dickerson Patient Age: 40 y.o. Birthdate: 1970 Admit date: 10/21/2011 Attending Physician: Infusion Therapy,Meds TIME TREATMENT STARTED: 1200 TIME TREATMENT ENDED: 1615 King Dickerson, 40 y.o. male with diagnosis of Hodgkins Lymphoma Non bulky stage 1 or 2 is here for chemotherapy infusion of ABVD. PROTOCOL: [id number] CYCLE: 1 WEEK: 1 DAY: 1 S: Pt. offers no complaints. O: Chemotherapy orders independently verified for drug name, route and dosage per patient's height,weight and BSA by Ty Winters RN, OCN and on site pharmacist. REACTIONS (DESCRIPTION, TIME, INTERVENTION AND EFFECTIVENESS) None noted A: Pt. Tolerated treatment well. King Dickerson confirms that all questions and issues have been addressed. P: Return to clinic per routine. Discharge Note: Treatment completed, tolerated well. IV access flushed and discontinued per policy.Patient education completed throughout treatment today with patient and his . Discussed infusaport placement with patient since the Dacarbazine gordon at the IV site with peripheral infusion. Saline run continuously with infusion. Patient and denies any questions, concerns or complaints at this time. Discharged from infusion clinic. documented in this encounter Plan of Treatment [...] 18 Units, Intravenous, ONCE, 1 dose, On Wed10/21/11 at 1130, Administer over 30 Minutes, 1 unit = 1 mg New Bag 10/21/2011 2:30 PM EDT 18 Units 112 mL/hr dacarbazine (DTIC) 660 mg in dextrose 5% 316 mL chemo infusion 660 mg, Intravenous, ONCE, 1 dose, On Wed10/21/11 at 1130, Administer over 30 Minutes New Bag 10/21/2011 2:45 PM EDT 660 mg 632 mL/hr DOXOrubicin (ADRIAMYCIN) chemo injection 44 mg 44 mg, Intravenous, ONCE, 1 dose, On Wed10/21/11 at 1130, Administer over 5 Minutes, Vesicant/irritant. Avoid extravasation Given 10/21/2011 2:16 PM EDT 44 mg 264 mL/hr LORazepam (ATIVAN) tablet 0.5-1 mg 0.5-1 mg, Oral, EVERY 4 HOURS PRN, Starting on Wed10/21/11 at 1211, Until Veronica 10/22/11 at 0233, Anxiety, Nausea, Vomiting, Routine Given 10/21/2011 12:19 PM EDT 0.5 mg ondansetron (ZOFRAN) tablet 16 mg 16 mg, Oral, ONCE, 1 dose, On Wed10/21/11 at 1230, Routine Given 10/21/2011 12:19 PM EDT 16 mg sodium chloride 0.9% infusion 500 mL, Intravenous, ONCE, 1 dose, On Wed10/21/11 at 1230, With chemo New Bag 10/21/2011 12:15 PM EDT 500 mLs mL/hr vinBLAStine (VELBAN) chemo injection 11 mg 11 mg, Intravenous, ONCE, 1 dose, On Wed10/21/11 at 1130, Administer over 5 Minutes, FOR IV USE ONLY. FATAL IF GIVEN BY OTHER ROUTES. Vesicant/irritant Avoid extravasation Given 10/21/2011 2:25 PM EDT 11 mg 132 mL/hr documented in this encounter Care Teams Nocturnist Physician Relationship Specialty Start Date End Date Reginald Nieto APRN [address] [place] [address] PCP - General 09/30/11 10/05/13 documented as of this encounter
--- OUTSIDE RECORDS SUMMARY | 2024-01-24 11:03 | XMS_ITS | Encounter Summary ---
Author Organization [facility] [place] [address] Care Team Providers Care Lunchroom Worker Name Role Phone Reginald Nieto APRN Primary Care Provide r Reason for Visit * Reason Comments Chemotherapy ABVD Cycle 1 day 15 CALGB 94160 Encounter Details Date Type Department Care Team (Late st Contact Info) Description 11/04/2011 11:00 AM EDT Office Visit Hematology Oncology at [address] [phone] CLINIC, DR [facility] HEM/ONC Hodgkin lymphoma (Primary Dx) Social History Tobacco [...] Progress Notes * Amberly Culp RN - 11/04/2011 3:47 PM EDT INFUSION THERAPY ADMINISTRATION NOTES DIAGNOSIS: Hodgkin Lymphoma CYCLE #:1 day 15 REASON FOR VISIT: ABVD PROTOCOL: CALGB 56691 SUBJECTIVE King offers no complaints. OBJECTIVE LAB DATA: WNL IV ACCESS: PIV Right Wrist #[id number] BLOOD RETURN: yes Pre administration: Chemotherapy orders independently verified for drug name, route, and dosage per patient's height, weight and BSA by Amberly Culp RN and Yani Rogers RN. REACTIONS (DESCRIPTION, TIME, INTERVENTION AND EFFECTIVENESS) none ASSESSMENT King was awake, alert and he tolerated treatment well. PLAN Return to clinic per routine. documented in this encounter Plan of Treatment [...] 18 Units, Intravenous, ONCE, 1 dose, On Wed11/04/11 at 1100, Administer over 30 Minutes, 1 unit = 1 mg New Bag 11/04/2011 12:50 PM EDT 18 Units 112 mL/hr dacarbazine (DTIC) 660 mg in dextrose 5% 316 mL chemo infusion 660 mg, Intravenous, ONCE, 1 dose, On Wed11/04/11 at 1100, Administer over 30 Minutes New Bag 11/04/2011 1:30 PM EDT 660 mg 632 mL/hr DOXOrubicin (ADRIAMYCIN) chemo injection 44 mg 44 mg, Intravenous, ONCE, 1 dose, On Wed11/04/11 at 1100, Administer over 5 Minutes, Vesicant/irritant. Avoid extravasation Given 11/04/2011 12:33 PM EDT 44 mg 264 mL/hr palonosetron (ALOXI) injection 0.25 mg 0.25 mg, Intravenous, ONCE, 1 dose, On Wed11/04/11 at 1100, Routine Given 11/04/2011 11:36 AM EDT 0.25 mg sodium chloride 0.9% infusion 500 mL, Intravenous, ONCE, 1 dose, On Wed11/04/11 at 1100, With chemo New Bag 11/04/2011 11:30 AM EDT 500 mLs mL/hr vinBLAStine (VELBAN) chemo injection 11 mg 11 mg, Intravenous, ONCE, 1 dose, On Wed11/04/11 at 1100, Administer over 5 Minutes, FOR IV USE ONLY. FATAL IF GIVEN BY OTHER ROUTES. Vesicant/irritant Avoid extravasation Given 11/04/2011 12:44 PM EDT 11 mg 132 mL/hr documented in this encounter Care Teams Lunchroom Worker Relationship Specialty Start Date End Date Reginald Nieto APRN [address] [place] [address] PCP - General 09/30/11 10/05/13 documented as of this encounter
--- OUTSIDE RECORDS SUMMARY | 2024-01-24 11:03 | XMS_ITS | Encounter Summary ---
Author Organization [facility] [place] [address] Care Team Providers Care Nurse Sitter Name Role Phone Reginald Nieto APRN Primary Care Provide r Encounter Details Date Type Department Care Team (Latest Contact Info) Description 10/16/2011 11:00 AM EDT - 10/16/2011 11:17 AM EDT Hospital Encounter Hematology [place] [address] Hodgkin disease Social History Tobacco Use Types [...] Miscellaneous Lab request Lab Routine Hodgkin disease 1 Occurrences starting 10/16/2011 documented as of this encounter Visit Diagnoses Diagnosis Hodgkin disease Hodgkin's disease, unspecified documented in this encounter Care Teams Nurse Sitter Relationship Specialty Start Date End Date Reginald Nieto APRN [address] [place] [address] PCP - General 09/30/11 10/05/13 documented as of this encounter
--- OUTSIDE RECORDS SUMMARY | 2024-01-24 11:03 | XMS_ITS | Encounter Summary ---
Author Organization [facility] Address [facility] [place] [address] Care Team Providers Care Rn Field Case Manager Name Role Phone Reginald Nieto APRN Primary Care Provide r Reason for Visit * Reason Comments Follow-up Encounter Details Date Type Department Care Team (Late st Contact Info) Description 11/04/2011 10:00 AM EDT Follow-Up Hematology Oncology at [address] [phone] Josh Gonzalez MD [facility] HEMATOLOGY/[place] [address] Hodgkin's disease (Primary Dx) Discharge Disposition: Home [...] Sign Reading Time Taken Comments Blood Pressure 124/81 11/04/2011 9:59 AM EDT Pulse 81 11/04/2011 9:59 AM EDT Temperature 36.7 ??C (98.1 ??F) 11/04/2011 9:59 AM ED T Respiratory Rate 16 11/04/2011 9:59 AM EDT Oxygen Saturation 99% 11/04/2011 9:59 AM EDT Inhaled Oxygen Concentration - - Weight 63 kg (139 lb) 11/04/2011 9:59 AM EDT Height 175.7 cm (5' 9.17) 11/04/2011 9:59 AM ED T Body Mass Index 20.42 11/04/2011 9:59 AM EDT documented in this encounter Progress Notes * Day Prajapati RN - 11/06/2011 11:35 AM EDTAddended by: DAY PRAJAPATI on: 11/06/2011 Modules accepted: Orders * Josh Gonzalez MD - 11/04/2011 8:54 AM EDT Problem list #1 Hodgkin's disease A histology: Classic Hodgkin's disease B PET scan shows stage IIA disease. 36 x 25 mm node in the left neck +4 x 5 mm node in the anteriormediastinum on the left side C. started chemotherapy with the ABVD on protocol CALGB 96206, October 20, 2011 #2 smoker Medication list [...] disease with Sebastián- Vicki cells. Interval history He received his first dose of ABVD on CALGB protocol #43577. First dose was October 20, 2011. He tolerated but had some vomiting a couple of days later. In addition reported that his IV site down near the distal forearm on his left arm is tender and swollen about 2 inches up from the IV puncture site.This occurred about 2 or 3 days after the chemotherapy was given. He had no discomfort at the time of the infusion. Review of systems Constitutional Positive some nausea and 2 episodes of emesis about 2 days after the chemotherapy hedoes notice that the pain in the neck is diminished and the mass is shrinking. Negative for sweats or fevers or weight loss or change in appetite. Respiratory: negative for shortness of breath, coughing, or hemoptysis. Cardiac: negative for chest pain, swelling, shortness of breath. GI: negative for vomiting, nausea, diarrhea, pain. Neuro: Negative for seizures, weakness, numbness or tingling, headaches, change in vision, insomnia, anxiety or [...] tattoos one on each forearm Left arm: There's an IV puncture site in the hand which accesses the vein along the radial bone andthere is a slight swelling about 2 inches up that bone along the vein. There is no redness is not really tender to palpation it is not warm. No sign of tissue necrosis Lymph nodes There is a large jaci mass on the left side of the neck anterior to sternocleidomastoid muscle. It's approximately 6 x 4 cm, nontender somewhat mobile. No other jaci masses in the neck or submentalregion on the back of the skull. None in the axilla or supraclavicular regions. Abdomen has no splenomegaly no nodes in the inguinalregion. Extremities negative for swelling or cyanosis or [...] does not have children. He works at [employer] in [place]. Note that he does smoke. Labs White count 2.88 ANC 1.55 hemoglobin 14.6 platelets 223 Calcium 8.5 creatinine 0.7 total protein 6.9 albumin 4.1 total bilirubin 0.29 Alkaline phosphatase 88 Potassium 4.4 AST 12 ALT 26 Assessment And received his first dose October 19 and this is his day 15 dose on cycle #1. He's doing quite well and the mass is diminished noticeably in size in the left neck. Probably 50% reduction. He did have 2 episodes of emesis about 2 days after the chemotherapy was given. He states that he wasn't bothering him. He does continue to smoke. We'll change his premeds from ondansetron and Aloxi to see if we can help with the emesis. He will receive his day 15 dose today. We did discuss a Port-A-Cath but I think he just has an irritated vein and a Port-A-Cath may not benecessary. Will reassess this next time if it happens again we can always place a port. Plan #1 receive day 15 cycle #1 ABVD today #2 change premed from ondansetron to Aloxi he did emesis #3 keep an eye in the left arm IV site This note was created using [employer] voice recognition software. It was reviewed for major content. However, there may be multiple small discrepancies and errors due to the voice recognition aspects of the software. documented in this encounter Procedure Notes * Provider, Scanning - 11/05/2011 4:41 PM EDTAssociated Order(s): SCAN DOC: CHEMOTHERAPY documented in this encounter Plan of Treatment Not on file documented as of this encounter Procedures Procedure Name Priority Date/Time Associated Diagnosis Comments CHEMOTHERAPY SCAN 11/05/2011 4:4 1 PM EDT documented in this encounter Results * SCAN DOC: CHEMOTHERAPY (11/05/2011 4:41 PM EDT) Narrative 11/05/2011 4:41 PM EDT Procedure Note Provider, Scanning - 11/05/2011 4:41 PM EDT Scanning Provider MEDIA MGR SCAN EXT O RDR/RSLT documented in this encounter Visit Diagnoses Diagnosis Hodgkin's disease- Primary Hodgkin's disease, unspecified documented in this encounter Care Teams Rn Field Case Manager Relationship Specialty Start Date End Date Reginald Nieto, AUTO BRAKE TECHNICIAN [address] [place] [address] PCP - General 09/30/11 10/05/13 documented as of this encounter
--- OUTSIDE RECORDS SUMMARY | 2024-01-24 11:03 | XMS_ITS | Encounter Summary ---
Author Organization [facility] Address [facility] [place] [address] Care Team Providers Care Water Pumping Station Engineer Name Role Phone Reginald Nieto APRN Primary Care Provide r Reason for Visit * Reason Comments Radiation Consult Encounter Details Date Type Department Care Team (Late st Contact Info) Description 11/16/2011 9:00 AM EDT Office Visit Radiation Oncology at [address] [phone] Martha Perez MD [facility] [place] [address] Hodgkin's disease (Primary Dx) Discharge Disposition: Home [...] Sign Reading Time Taken Comments Blood Pressure 111/67 11/16/2011 8:00 AM EDT Pulse 87 11/16/2011 8:00 AM EDT Temperature 37.1 ??C (98.8 ??F) 11/16/2011 8:00 AM ED T Respiratory Rate 16 11/16/2011 8:00 AM EDT Oxygen Saturation 99% 11/16/2011 8:00 AM EDT Inhaled Oxygen Concentration - - Weight 64 kg (141 lb) 11/16/2011 8:00 AM EDT Height - - Body Mass Index 20.72 11/04/2011 9:59 AM EDT documented in this encounter Patient Instructions * Patient Instructions* Martha Perez MD - 11/16/2011 9:50 AM EDT Buy lotrimin cream over the counter & apply to your armpits every 12 hours for [address]. [address] Gonzalez tells you that you need radiotherapy based on the restaging PET/CT, please see Dr. Bagley for preradiotherapy evaluation. documented in this encounter Progress Notes * Martha Perez MD - 11/16/2011 9:09 AM EDT Subjective: Patient ID: King Dickerson is a 41 y.o. male referred by Dr. Gonzalez for eval for xrt for Hodgkin'slymphoma. HPI Mild viral illness for which he missed a couple of days work, followed by waking up one morningw/a grapefruit size mass in L neck. 09/24/[address] Gonzalez, w/exam showing 6 x 4 cm nontender somewhat mobile jaci mass in L neckanterior to SCM. 10/01/11 neck mass bx. 10/02/11 PET/CT: Hypermetabolic adenopathy w/in L anterior neck involving levels 2 through 4, including supraclav region, suspicious for malignancy, w/lymphoma being most likely. Small, 4-5 mm hypermetabolic L anterior mediastinal lymph node, also suspicious for malignant jaci involvement. 3-4 mm noncalcified RLL pulmonary nodule, too small to characterize, attn on FU. [facility] path: Neck mass, bx: Involved by classical Hodgkin Lymphoma. Comment: It is likely the nodularsclerosis subtype. 10/13/[address] Domingo, @ which time no systemic symptoms, pain in L shoulder when carrying heavy things. Exam showing anterior cervical adenopathy extending to L supraclav region w/multiple nodes in chain, 3 x 7 cm. Assessment of stage II Hodgkin's, apparently low risk. Smoking cessation encouraged. [place]x on CALGB [address]92 discussed. 10/16/11 Sed Rate: 3 (0-15), LDH 127 (110-220), AST 16 (0-39), ALT 19 (0-55), Alk Phos 76 (40-120), CBC: WBC 7.9, Hgb 15.4, Hct 45, Plts 192 K. 10/16/11 REST MUGA scan: Normal L ventricular fxn, estimated LVEF 64%. 10/16/11 CT neck: Comparison head CT 10/02/11. As on prior PET/CT, there are multiple enlarged lymph nodes in L neck. The largest of these is @ level 3 measuring 2.1 x 3.7 cm. Nodes extend to level 4. No pathologic adenopathy on R. 10/16/11 CT c/a/p: Partially visualized L supraclav/cervical chain lymphadenopathy, 17 x 21 mm, moreclearly eval'd on accompanying CT neck. 10/16/11 CXR: Normal. 10/16/11 PFTs: FEV1 4.11. 10/20/11 started chemo w/ABVD on protocol CALGB 10897 11/04/11 FU w/Dr. Gonzalez, w/exam showing probable 50% reduction of previously noted L neck mass. 11/04/11 day 15 cycle #1 ABVD given. Smoking half ppd x 20 yrs. Review of Systems Lost 5 lbs since starting chemo. No NS/F/C. Swallowing, eating, drinking ok. No pain. L neck mass has decreased significantly, w/hardly any mass remaining. Itchy rash in armpits since starting chemo. Objective: Physical Exam Constitutional: He is oriented to person, place, and time. He appears well- developed and well-nourished. No distress. 141 lbs. Multiple tatoos. HENT: Head: Normocephalic. Mouth/Throat: Oropharynx is clear and moist. No oral lesions. Waldeyer's Ring neg. Eyes: Conjunctivae and EOM are normal. Right eye exhibits no discharge. Left eye exhibits no discharge. No scleral icterus. Neck: Normal range of motion. Neck supple. No tracheal deviation present. No thyromegaly present. Firm fullness in L neck involving levels 2 & 3. R neck neg. Pulmonary/Chest: Effort normal and breath sounds normal. No stridor. No respiratory distress. He has no wheezes. He has no rales. He exhibits no tenderness. Abdominal: Soft. He exhibits no distension and no mass. No tenderness. He has no rebound and no guarding. Musculoskeletal: Normal range of motion. He exhibits no edema and no tenderness. Lymphadenopathy: Head (right side): No submental, no submandibular, no tonsillar, no preauricular, no posterior auricular and no occipital adenopathy present. Head (left side): No submental, no submandibular, no tonsillar, no preauricular, no posterior auricular and no occipital adenopathy present. He has no cervical adenopathy. He has no axillary adenopathy. Right: No inguinal, no supraclavicular and no epitrochlear adenopathy present. Left: No inguinal, no supraclavicular and no epitrochlear adenopathy present. Neurological: He is alert and oriented to person, place, and time. No cranial nerve deficit. He exhibits normal muscle tone. Coordination normal. Skin: He is not diaphoretic. There is erythema. 1 x 0.5 cm area of erythema in R axilla & 1.5 x 1 cm area of erythema in L axilla w/accompanying 0.5 cm pimple like structure. Psychiatric: He has a normal mood and affect. His behavior is normal. Judgment and thought content normal. Assessment and Plan: Hodgkin's lymphoma, classical, stage IIA, originating in L neck. Discussed possible tx w/xrt, as specified on CALGB 73120, if restaging PET/CT shows residual dz after ABVD x 2, in which case BEACOPP x 2 would be given prior to xrt, w/IFRT starting 4-6 wks after the 2nd cycle of BEACOPP. I discussed the possible side effects/complications of xrt, w/the acute/immediate side effects including: Soreness of throat/mouth w/difficulty eating, drinking & swallowing; dryness of mouth/throat; increase in thickness of saliva; change in taste; pinkening, soreness & peeling of skin in treated area; loss of marley +/- side burn/hair on lower hairline, which could be permanent; increased hoarseness; swelling of lower face/neck; irritation of ears; tiredness; esophagitis; cough; dsypnea. Discussed possibility of Lhermitte's Syndrome. Possible late/marine oil terminal superintendent side effects/complications discussed, including: Chronic pain in mouth/throat; chronic dryness of mouth/throat; chronic change in taste; hypothyroidism; chronic lymphedema of lower face/neck; fluid in middle ear; bone exposure; soft tissue necrosis; scar tissue in irradiatedlung volume showing on scans after completion of xrt; risk of 2nd malignancy. Rec'd smoking cessation to decrease risk of another malignancy & offered to refer him to smoking cessation program, but he declined, saying he was aware of the need to stop smoking & would do it himself. Discussed rec for prexrt dental eval. Discussed need for CTsim prior to xrt. I think the erythema in his axillae is possibly fungal & rec'd lotrimin cream q 12 hrs x 2 wks to armpits for the erythematous rash. If not fungal, it may be from herpes zoster, & we discussed how med could be given to shorten the course of shingles. He will ask Dr. Gonzalez to evaluate it on W., 11/17. After the restaging PET/CT is done, if there is residual dz, he will contact his dentist (Dr. Bagley in [facility]) for prexrt dental eval & sim apt will be sched'. 20 mins of 35 min visit w/King spent in face to face discussion regarding plan. No problem-specific visit notes found for this encounter. * EvangelistaMona RN - 11/16/2011 8:50 AM EDT RADIATION ONCOLOGY NURSING INITIAL NURSING ASSESSMENT IDENTIFICATION: name and correct ADVANCE DIRECTIVES: In [facility] [ ] Has documents [ yes, Katlyn Hutchinson provided ] Will bring in [ ] IF NO: Advance Directive pamphlet provided: [ n/a ] Referral to Care Management : [ ] PRESENTING SYSTEMS and PATHOLOGY: patient woke up with large grapefruit sized mass on left side of neck. He states he has had 2 chemo therapy sessions and it has gone down quite a bit. He denies pain. Prior Radiotherapy: [ x ] no [ ] yes Site: Date: Facility: Prior Chemotherapy: [ ] no [ x ] yes Drug: ABVD Oncologist-Dr Gonzalez LastTreatment: 11/03. currently receiving and will get next dose on 11/17 RADIATION SPECIFIC REVIEW: NO: YES: Claustrophobia or requires sedation for MRIs Hesitated when he said no . He has lorazepam PRN. Allergy to CT or MRI contrast agent or iodine or shellfish x Diabetic and on metformin x Metal in body, implanted device, worked with metal, body piercings,braces x Dentures or hearing device x Pacemaker x Difficulty breathing while lying flat x Kidney problems/creatinine x Balance difficulty: [x ]no [ ]yes At risk for fall: [ x] no [ ] yes If yes, actions implemented to prevent fall: Patient/family instructed to avoid independent ambulation. Use wheelchair and ask for assistance of staff while in the clinic. ADL [ x ] no limits [ ] needs dressing assistance [ ] needs meal assistance Assistive device:[ x ]none [ ]cane [ ]walker [ ]wheelchair [ ]other: explain SOCIAL ASSESSMENT: See [facility] social assessment information entered. Support Systems: lives with Barriers to treatment: None Referrals/Interventions:He has seen our social service technician, Fadumo Vann. LEARNING STYLE: Visual and verbal, wants written material and verbal discussion. TEACHING: LEARNING STYLE: Visual and verbal, wants written material and verbal discussion. Language barriers: [x ] no [ ] yes [ x] NCI Radiation therapy and You?? and folder given by Dr Perez [ ] Site Specific literature provided and reviewed with patient [ ] Other: baudilio's cream given documented in this encounter Plan of Treatment Not on file documented as of this encounter Visit Diagnoses Diagnosis Hodgkin's disease- Primary Hodgkin's disease, unspecified documented in this encounter Care Teams Water Pumping Station Engineer Relationship Specialty Start Date End Date Reginald Nieto APRN [address] [place] [address] PCP - General 09/30/11 10/05/13 documented as of this encounter
--- OUTSIDE RECORDS SUMMARY | 2024-01-24 11:03 | XMS_ITS | Encounter Summary ---
Author Organization [place] [address] Care Team Providers Care Machinist Apprentice Name Role Phone Reginald Nieto APRN Primary Care Provide r Encounter Details Date Type Department Care Team (Latest Contact Info) Description 12/10/2011 8:44 AM EDT - 12/10/2011 9:05 AM EDT Hospital [place] [id number] Hodgkin lymphoma Social History Tobacco Use Types [...] CHEST ABDOMEN PELVIS W CONTRAST (GENERIC) Routine 12/10/2011 11:10 AM EDT Hodgkin's disease, unspecified documented in this encounter Results * CT CHEST, ABDOMEN, & PELVIS WITH CONTRAST (12/10/2011 11:10 AM EDT) Anatomical Region Laterality Modality Computed Tomogra phy 12/10/2011 11:1 0 AM EDT Narrative 12/10/2011 5:[address] Chest / Abdomen / Pelvis With Contrast Clinical History restaging following 2 cycle ABVD; on Lymphoma protocol [id number] report maximal bi dimensional jaci measurements do NOT use RECIST criteria Comparison CT chest/abdomen/pelvis dated 10/16/2011 and PET-CT dated 10/02/2011. Technique Helically acquired CT images of the chest abdomen and pelvis obtained after enteral contrast administration and during the intravenous administration of 110 mL of Omnipaque 350. ??Multiplanar reformats performed to further aid in evaluation. ?? Findings Chest: Stable appearing bullous changes at the lung apices, bilaterally. No interval change in a noncalcified 4 mm right lower lobe pulmonary nodule (series 3, image 44). The lungs are otherwise clear. No new pulmonary nodules. No pleural effusions. ??The airways are clear. ??The heart is normal in size. ??No pericardial effusion. ??No filling defects within the central pulmonary arteries to suggest pulmonary emboli. No hilar, mediastinal or axillary lymphadenopathy, specifically there has been interval decrease in size of the previously noted hypermetabolic anterior mediastinal and supraclavicular lymph nodes. Abdomen/Pelvis: The liver, gallbladder, pancreas, spleen, adrenal glands and kidneys are normal in appearance. 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 ??The bladder, prostate and seminal vesicles are unremarkable. ??The bowel is nondilated and nonobstructed. ??No free air or free fluid. No lymphadenopathy. Vascular evaluation demonstrates patent portal and hepatic veins. ??The aorta is normal in size. ??Minimal atherosclerotic change. No aggressive osseous lesions. Lesion #1 (left supraclavicular lymph node) ??; Image # ??; Series # ??; Maximum Diameter (mm) ??; {CR}Previous Scan: 10/16/2011 ??; 3 ??; 2 ??; 17 x 21 ??; {CR}Present Scan: 12/10/2011 ??; 5 ??; 2 ??; 7 x 9 ??; {CR} Impression 1. Interval decrease in size of previously noted hypermetabolic lymph nodes. No new mass or lymphadenopathy. ?? 2. Stable indeterminate 4 mm right lower lobe pulmonary nodule. Film and interpretation reviewed by the attending Procedure Note Henok Castro MD - 12/10/[address] Chest / Abdomen / Pelvis With Contrast Clinical History restaging following 2 cycle ABVD; on Lymphoma protocol [id number] report maximal bi dimensional jaci measurements do NOT use RECIST criteria Comparison CT chest/abdomen/pelvis dated 10/16/2011 and PET-CT dated 10/02/2011. Technique Helically acquired CT images of the chest abdomen and pelvis obtainedafter enteral contrast administration and during the intravenous administrationof 110 mL of Omnipaque 350. Multiplanar reformats performed to further aidin evaluation. Findings Chest: Stable appearing bullous changes at the lung apices, bilaterally.No interval change in a noncalcified 4 mm right lower lobe pulmonary nodule (series 3, image 44). The lungs are otherwise clear. No new pulmonarynodules. No pleural effusions. The airways are clear. The heart is normal insize. No pericardial effusion. No filling defects within the central pulmonaryarteries to suggest pulmonary emboli. No hilar, mediastinal or axillarylymphadenopathy, specifically there has been interval decrease in size of the previouslynoted hypermetabolic anterior mediastinal and supraclavicular lymph nodes. Abdomen/Pelvis: The liver, gallbladder, pancreas, spleen, adrenal glandsand kidneys are normal in appearance. 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 The bladder, prostate and seminal vesicles are unremarkable. The bowel is nondilated and nonobstructed. No free air or free fluid. No lymphadenopathy. Vascular evaluation demonstrates patent portal and hepatic veins. Theaorta is normal in size. Minimal atherosclerotic change. No aggressive osseous lesions. Lesion #1 (left supraclavicular lymph node) ; Image # ; Series # ;Maximum Diameter (mm) ; {CR}Previous Scan: 10/16/2011 ; 3 ; 2 ; 17 x 21 ; {CR}Present Scan: 12/10/2011 ; 5 ; 2 ; 7 x 9 ; {CR} Impression 1. Interval decrease in size of previously noted hypermetabolic lymphnodes. No new mass or lymphadenopathy. 2. Stable indeterminate 4 mm right lower lobe pulmonary nodule. Film and interpretation reviewed by the attending Stevie Domingo MD IMG CT ORDERABLES documented in this encounter Visit Diagnoses Diagnosis Hodgkin lymphoma Hodgkin's disease, unspecified documented in this encounter Administered Medications Inactive Administered Medications - up to 3 most recent administrations Medication Order MAR Action Action Date Dose Rate Site iohexol (OMNIPAQUE) 350 mg/mL injection 17,500 mg 17,500 mg (50 mL), Oral, ONCE PRN, 1 dose, Starting on Veronica 12/10/11 at 1059, Until Veronica 12/10/11 at 0900, Per Protocol, Routine Given 12/10/2011 9:00 AM EDT 17,500 mg iohexol (OMNIPAQUE) 350 mg/mL injection 38,500 mg 38,500 mg (110 mL), Intravenous, ONCE PRN, 1 dose, Starting on Veronica 12/10/11 at 1058, Until Veronica 12/10/11 at 1059, Per Protocol, Routine Given 12/10/2011 10:59 AM EDT 38,500 mg documented in this encounter Care Teams Machinist Apprentice Relationship Specialty Start Date End Date Reginald Nieto, [address] [place] [address] PCP - General 09/30/11 10/05/13 documented as of this encounter
--- OUTSIDE RECORDS SUMMARY | 2024-01-24 11:03 | XMS_ITS | Encounter Summary ---
Author Organization [facility] [address] Care Team Providers Care Criminal Investigator Customs Name Role Phone Reginald Nieto APRN Primary Care Provide r Reason for Visit * Reason Comments Chemotherapy ABVD Cycle 3, Day 1 Protocol [facility] [id number] Encounter Details Date Type Department Care Team (Late st Contact Info) Description 12/16/2011 11:00 AM EDT Office Visit Hematology Oncology at [address] [phone] CLINIC, DR HILTON HEM/ONC Hodgkin's lymphoma (Primary Dx) Social History Tobacco Use [...] Sign Reading Time Taken Comments Blood Pressure 139/85 12/16/2011 11:30 AM EDT Pulse 79 12/16/2011 11:30 AM EDT Temperature 37 ??C (98.6 ??F) 12/16/2011 11:30 AM EDT Respiratory Rate 18 12/16/2011 11:30 AM EDT Oxygen Saturation 99% 12/16/2011 11:30 AM EDT Inhaled Oxygen Concentration - - Weight - - Height - - Body Mass Index - - documented in this encounter Progress Notes * May Carbone RN - 12/17/2011 10:33 AM EDT [id number] Cared for by May Carbone RN * Yani Rogers RN - 12/16/2011 11:26 AM EDT INFUSION THERAPY ADMINISTRATION NOTES DIAGNOSIS: Hodgkins CYCLE #: 3day 1 ~ CALGB 93799 REASON FOR VISIT: ABVD SUBJECTIVE King offers no complaints. OBJECTIVE LAB DATA: WNL IV ACCESS: PIV Pre administration: Chemotherapy orders independently verified for drug name, route, and dosage per patient's height, weight and BSA by Amberly Culp RN and Yani Rogers RN REACTIONS (DESCRIPTION, TIME, INTERVENTION AND EFFECTIVENESS) Patient with nausea after infusion ofpre-meds - states severe. States spit while in the bathroom, and reports small amount of blood in sputum. See vitals. Dr. Gonzalez assessed patient - prn ativan given as ordered with good effect. ASSESSMENT King was awake, alert. Continues with significant anxiety related to treatment. PLAN Return to clinic tomorrow for neulasta . documented in this encounter Plan of [...] 18 Units, Intravenous, ONCE, 1 dose, On Wed12/16/11 at 1100, Administer over 30 Minutes, 1 unit = 1 mg New Bag 12/16/2011 1:35 PM EDT 18 Units 112 mL/hr dacarbazine (DTIC) 660 mg in dextrose 5% 316 mL chemo infusion 660 mg, Intravenous, ONCE, 1 dose, On Wed12/16/11 at 1100, Administer over 30 Minutes New Bag 12/16/2011 2:05 PM EDT 660 mg 632 mL/hr DOXOrubicin (ADRIAMYCIN) chemo injection 44 mg 44 mg, Intravenous, ONCE, 1 dose, On Wed12/16/11 at 1100, Administer over 5 Minutes, Vesicant/irritant. Avoid extravasation Given 12/16/2011 1:23 PM EDT 44 mg 264 mL/hr fosaprepitant (EMEND) 150 mg in sodium chloride 0.9% 155 mL infusion 150 mg, Intravenous, ONCE, 1 dose, On Wed12/16/11 at 1100, Administer over 30 Minutes New Bag 12/16/2011 11:00 AM EDT 150 mg 310 mL/hr LORazepam (ATIVAN) injection 1 mg 1 mg, Intravenous, ONCE, 1 dose, On Wed12/16/11 at 1230, Routine Given 12/16/2011 12:00 PM EDT 1 mg palonosetron (ALOXI) injection 0.25 mg 0.25 mg, Intravenous, ONCE, 1 dose, On Wed12/16/11 at 1100, Routine Given 12/16/2011 10:55 AM EDT 0.25 mg sodium chloride 0.9% infusion 500 mL, Intravenous, ONCE, 1 dose, On Wed12/16/11 at 1100, With chemo New Bag 12/16/2011 11:00 AM EDT 500 mLs mL/hr vinBLAStine (VELBAN) chemo injection 11 mg 11 mg, Intravenous, ONCE, 1 dose, On Wed12/16/11 at 1100, Administer over 5 Minutes, FOR IV USE ONLY. FATAL IF GIVEN BY OTHER ROUTES. Vesicant/irritant Avoid extravasation Given 12/16/2011 1:17 PM EDT 11 mg 132 mL/hr documented in this encounter Care Teams Criminal Investigator Customs Relationship Specialty Start Date End Date Reginald Nieto APRN [address] [place] [address] PCP - General 09/30/11 10/05/13 documented as of this encounter
--- OUTSIDE RECORDS SUMMARY | 2024-01-24 11:03 | XMS_ITS | Encounter Summary ---
[place] [address] Care Team Providers Care Neonatal Doctor Name Role Phone Reginald Nieto APRN Primary Care Provide r Encounter Details Date Type Department Care Team (Latest Contact Info) Description 12/10/2011 11:19 AM EDT - 12/10/2011 1:24 PM EDT Hospital Encounter [place] [id number] Hodgkin lymphoma Social History Tobacco Use Types [...] CT SKULL BASE TO MID-THIGH ([facility]) Routine 12/10/2011 1:21 PM EDT Hodgkin lymphoma documented in this encounter Results * PET-CT skull base to mid thigh (12/10/2011 1:21 PM EDT) Anatomical Region Laterality Modality Other 12/10/2011 1:21 PM EDT Narrative 12/18/2011 10:22 AM EDT Examination PET-CT SCAN, 12/11/11 Procedure:Following IV injection of 79-bnnrcr-5-deoxyglucose (FDG) and a standard uptake period, a non-contrast CT scan followed by a PET scan were acquired along the length of the body from the top of head to mid thighs. The non-contrast CT was used for anatomic localization and photon attenuation correction of the PET scan. Blood Glucose Level (mg/dL):83. FDG Dose:9.4 mCi (0.15 mCi/kg to maximum of 18 mCi). Pre-medication administered: None. Clinical History Restaging after 2 cycles ABVD on lymphoma protocol [id number]. Comparison PET-CT, 10/02/2011. Findings Head and Neck Normal metabolic activity throughout the soft tissues of the neck and throughout the head. ??There is substantial decrease in size and complete metabolic resolution of the previous lymphadenopathy within the left neck. Chest Normal metabolic activity throughout the soft tissues of the chest. The previously noted small prevascular lymph node has resolved metabolically and has decreased in size. Stable CT-visualized sub 5 mm right lower lobe pulmonary nodule (axial image 104), which on prior breath-hold chest CT of 10/16/11 is seen to represent a calcified granuloma, and biapical bullous changes. Abdomen/Pelvis: Normal metabolic activity throughout the soft tissues of the abdomen and pelvis. Skeleton: Diffusely increased marrow activity throughout the axial and visualized appendicular skeleton, consistent with reactive marrow changes. Impression No metabolically active lymphoma. Previously noted hypermetabolic left cervical lymphadenopathy and small hypermetabolic pre-vascular lymph node have completely resolved metabolically and also have decreased in anatomic size. Film and interpretation reviewed by the attending Procedure Note Karley Mitchell MD - 12/18/2011 Examination PET-CT SCAN, 12/11/11 Procedure:Following IV injection of 61-jenunn-8-deoxyglucose (FDG) and a standard uptake period, a non-contrast CT scan followed by a PET scan were acquired along the length of the body from the top of head to mid thighs.The non-contrast CT was used for anatomic localization and photon attenuation correction of the PET scan. Blood Glucose Level (mg/dL):83. FDG Dose:9.4 mCi (0.15 mCi/kg to maximum of 18 mCi). Pre-medication administered: None. Clinical History Restaging after 2 cycles ABVD on lymphoma protocol [id number]. Comparison PET-CT, 10/02/2011. Findings Head and Neck Normal metabolic activity throughout the soft tissues of the neck and throughout the head. There is substantial decrease in size and complete metabolic resolution of the previous lymphadenopathy within the left neck. Chest Normal metabolic activity throughout the soft tissues of the chest. The previously noted small prevascular lymph node has resolved metabolicallyand has decreased in size. Stable CT-visualized sub 5 mm right lower lobepulmonary nodule (axial image 104), which on prior breath-hold chest CT of 10/16/11is seen to represent a calcified granuloma, and biapical bullous changes. Abdomen/Pelvis: Normal metabolic activity throughout the soft tissues of the abdomen and pelvis. Skeleton: Diffusely increased marrow activity throughout the axial and visualized appendicular skeleton, consistent with reactive marrow changes. Impression No metabolically active lymphoma. Previously noted hypermetabolic leftcervical lymphadenopathy and small hypermetabolic pre-vascular lymph node have completely resolved metabolically and also have decreased in anatomicsize. Film and interpretation reviewed by the attending Stevie Domingo MD IMG PET ORDERABLES documented in this encounter Visit Diagnoses Diagnosis Hodgkin lymphoma Hodgkin's disease, unspecified documented in this encounter Care Teams Neonatal Doctor Relationship Specialty Start Date End Date Reginald Nieto, SOFTWARE PACKAGER [address] [place] [address] PCP - General 09/30/11 10/05/13 documented as of this encounter
--- OUTSIDE RECORDS SUMMARY | 2024-01-24 11:03 | XMS_ITS | Encounter Summary ---
Author Organization [facility] [place] [address] Care Team Providers Care Division Merchandise Manager Name Role Phone Reginald Nieto APRN Primary Care Provide r Encounter Details Date Type Department Care Team (Late st Contact Info) Description 12/01/2011 Telephone [place]ematology [place] [phone] Day Stahl RN Social History Tobacco Use [...] Telephone Encounter - Day Stahl RN - 12/01/2011 12:10 PM EDT Research Nurse Telephone Note Cycle 2, Day 14 [id number]: A Phase II Trial of Response-Adapted Chemotherapy Based on Positron Emission Tomography forNon-Bulky Stage I or II Hodgkin Lymphoma C1D1: 10/21/11 ([facility]) C1D15: 11/04/11 ([facility]) C2D1: 11/18/11 ([facility]) C2D15: 12/02/11 ([facility]), pending Call placed to pt to inquire at status, Pt reports doing well overall, pleased with limited toxicities thus far. Pleased that he is doing better than I expected. Primarily right-sided peripheral neuropathy persists. Able to articulate remainder of plan for Cycle 2. Reviewed re-staging exams to be completed 12/10/11at [facility]; pt aware, and in agreement. AE Table (for non-laboratory events), starting 10/21/11 [...] lab work 12/01/11 - Re-staging 12/10/11 at [facility] - Subsequent treatment dependent on results of re-staging (Section 7.1): CR, AR, or SD with PET negative will receive 2 additional cycles ABVD CR, AR, or SD with PET positive will receive 2 cycles escalated BEACOPP followed by involved field radiotherapy Pt in agreement with this plan, and agrees to call with questions, concerns. documented in this encounter Plan of Treatment Not on file documented as of this encounter Visit Diagnoses Not on filedocumented in this encounter Care Teams Division Merchandise Manager Relationship Specialty Start Date End Date Reginald Nieto APRN [address] [place] [address] PCP - General 09/30/11 10/05/13 documented as of this encounter
--- OUTSIDE RECORDS SUMMARY | 2024-01-24 11:03 | XMS_ITS | Encounter Summary ---
Author Organization [facility] Address [facility] [place] [address] Care Team Providers Care Set Up Mechanic Stamping Machines Name Role Phone [place] Nieto APRN Primary Care Provide r Reason for Visit * Reason Comments Follow-up Encounter Details Date Type Department Care Team (Late st Contact Info) Description 10/21/2011 10:00 AM EDT Follow-Up Hematology and [place]cology [place] [phone] [address] [address] [place] [address] [place] Chavis [address] [facility] [place] [address] HD (Hodgkin's disease) (Primary Dx) Discharge Disposition: Home Social History [...] Sign Reading Time Taken Comments Blood Pressure 125/65 10/21/2011 9:32 AM EDT Pulse 102 10/21/2011 9:32 AM EDT Temperature 36.9 ??C (98.4 ??F) 10/21/2011 9:32 AM ED T Respiratory Rate 16 10/21/2011 9:32 AM EDT Oxygen Saturation 99% 10/21/2011 9:32 AM EDT Inhaled Oxygen Concentration - - Weight 63 kg (138 lb 12.8 oz) 10/21/2011 9:32 AM EDT Height 175.7 cm (5' 9.17) 10/21/2011 9:32 AM ED T Body Mass Index 20.39 10/21/2011 9:32 AM EDT documented in this encounter Progress Notes * [place] Chavis, WAREHOUSE DISTRIBUTION SPECIALIST - 10/21/2011 11:29 AM EDT Subjective: Patient ID: King Dickerson is a 40 y.o. male. HPI: The patient is a 40-year-old male who is referred by Dr. Josh Cross for second opinion regardingmanagement of recently diagnosed Hodgkin's disease. The patient has relatively few past medical problems. He is on no chronic medication. He did develop a mild viral illness for which he missed a couple of days of work. Shortly after that he noticed an enlarged mass in his left neck. He sought medical attention. Initially he was thought to have an infection. Ultimately a biopsy was performed and confirmed Hodgkin's disease. That pathology has been reviewed here as well as at [facility]. He has no systemic symptoms. No fevers chills sweats or unexplained weight loss. He does have pain in his left shoulder when he is more active such as putting wet or carrying heavy things. He has been able to continue working. He did meet with Dr. Cross. A PET scan revealed significant adenopathy that was hypermetabolic in the left neck as well as a normal-sized lymph node that was hypermetabolic in the chest. He presents today for initiation of systemic chemotherapy for his stage IIA newly diagnosed Hodgkin's Lymphoma on [id number] Phase II Trial of response-Adapted Chemotherapy Based On Positron Emission Tomography for non-Bulky Stage I and II Hodgkin Lymphoma. Since last seen 1 weeks ago, King denies changes to his baseline health. No fevers, chills, infections or intercurrent illnesses. No drenching sweats, unintentional weight loss or significant change in palpable adenopathy. He is quite anxious to begin therapy today as 'it feels like it has been a long time sincethe mass developed to start of treatment'. He does note persistence of pain in the back of his neck and sometimes shoulder likely due to nerve pressure/entrapment. He remains on Zoloft which he states is taking the edge off of his anxiety. ROS was otherwise unremarkable. We reviewed the remainder of his staging and end-organ function testing and then spent the majorityof the visit reviewing the unique side effects and management strategies for ABVD chemotherapy including but not limited to the following; GI disturbance including nausea, vomiting; Myelosuppression,a drop in blood counts, which could lead to risk for infection, bleeding, anemia, requiring transfus ions; Alopecia; Fatigue; Transient infertility; Rarely, serious allergic reaction; Pulmonary toxicity;Constipation; Neuropathy, jaw pain; Importance of use of control is reviewed as the chemotherapy does not usually cause infertility. We discussed infectious and neutropenic precautions and contact numbers to reach us during and after normal business hours. We discuss use of premediations toprevent nausea, vomiting, discomfort, reduce hypersensitivity reactions. He was provided with prescriptions and instruction on how to use Zofran and Ativan. Numerous question were asked and answered to their satisfaction. The patient and his had been well prepared having read the treatment consent prior to arrival to clinic today. PROBLEM LIST: Patient Active Problem List Diagnoses Code ??? Depression 311L ??? Hodgkin disease 201.90H MEDICATIONS: Prior to Admission medications Medication Sig Start Date End Date Taking? Authorizing Provider sertraline (ZOLOFT) 25 mg tablet Take 25 mg by mouth daily. Yes Historical Provider, melatonin 10 mg Tab Take 10 mg by mouth nightly as needed. Yes Historical Provider, Garlic 1,000 mg Cap Take 1,000 mg by mouth daily. Yes Historical Provider, co-enzyme Q-10 50 mg capsule Take 50 mg by mouth daily. Yes Historical Provider, Cholecalciferol, Vitamin D3, (VITAMIN D-3) 1,000 unit Chew Take 1,000 Units by mouth daily. Yes Historical Provider, PEDIATRIC MULTIVIT COMB #19/FA (CHILDREN'S MULTI-VIT GUMMIES ORAL) Take by mouth daily. Yes Historical Provider, ALLERGIES: No Known Allergies Objective: Physical Exam BP 125/65 Pulse 102 Temp(Src) 36.9 ??C (98.4 ??F) (Oral) Resp 16 Ht 175.7 cm (5' 9.17) Wt 62.959 kg (138 lb 12.8 oz) BMI 20.39 kg/m2 SpO2 99% GENERAL: King Dickerson is a well-developed, well-nourished, slightly anxious 40 year old male in noacute distress. ENT: Sinuses non-tender. Oropharynx clear. No masses. No hyperemia, exudative plaques or lesions. No thrush. ENDOCRINE: No thyromegaly palpated. CARDIOVASCULAR: Sinus tachycardia without S3,S4 or murmurs. No cyanosis or peripheral edema. PULMONARY: Lungs are clear to auscultation without rales, rhonchi or wheezing. GASTROINTESTINAL: Abdomen soft and non-tender without palpable masses or hepatosplenomegaly. NABS. MUSCULOSKELETAL: Neck supple with full ROM. No spine or CVA tenderness. SKIN: No rashes, bruises or petechiae. LYMPH: Anterior cervical adenopathy on the left extending into the supraclavicular space. Well healed surgical incision. No other adenopathy appreciated on today's exam. NEUROLOGICAL: Alert and oriented to person, place and time. LABORATORY: Results for orders placed in visit on 10/21/11 (from the past 72 hour(s)) CBC (WITH DIFF) Component Value Range ??? WBC 9.1 4.0 - 10.0 (x10(3)/mcL) ??? RBC 5.23 4.63 - 6.08 (x10(6)/mcL) ??? Hemoglobin 15.8 13.7 - 17.5 (gm/dL) ??? Hematocrit 47.0 40.0 - 51.0 (%) ??? MCV 89.9 79.0 - 92.0 (fL) ??? MCH 30.2 25.6 - 32.2 (pg) ??? MCHC 33.6 32.0 - 36.5 (gm/dL) ??? Platelets 218 145 - 370 (x10(3)/mcL) ??? RDWSD 42.5 35.0 - 46.0 (fL) ??? RDWCV 12.9 10.9 - 14.4 (%) ??? MPV 11.1 9.0 - 12.0 (fL) COMPREHENSIVE METABOLIC PANEL (NON-FASTING) Component Value Range ??? Glucose Lvl 69 60 - 199 (mg/dL) ??? BUN 14 10 - 20 (mg/dL) ??? Creatinine 0.90 0.80 - 1.50 (mg/dL) ??? Sodium 142 135 - 145 (mmol/L) ??? Potassium 4.1 3.5 - 5.0 (mmol/L) ??? Chloride 102 98 - 107 (mmol/L) ??? CO2 31 22 - 31 (mmol/L) ??? Anion Gap 9 5 - 15 (mmol/L) ??? Calcium 9.6 8.5 - 10.5 (mg/dL) ??? Total Protein 6.9 6.4 - 8.3 (gm/dL) ??? Albumin 4.7 3.2 - 5.2 (gm/dL) ??? AST 14 0 - 39 (unit/L) ??? ALT 19 0 - 55 (unit/L) ??? Alk Phos 83 40 - 120 (unit/L) ??? Total Bilirubin 0.3 0.2 - 1.3 (mg/dL) ??? Bili, Direct 0.1 0.0 - 0.3 (mg/dL) ? ? Estimated GFR >60 >=60 DIFFERENTIAL, AUTOMATED Component Value Range ??? Neutrophils % 79.3 (*) 34.0 - 71.0 (%) ??? Neutr Abs (ANC) 7.22 (*) 1.50 - 6.30 (x10(3)/mcL) ??? Lymphocytes % 14.2 (*) 19.0 - 53.0 (%) ??? Lymphocytes Abs 1.3 1.0 - 3.6 (x10(3)/mcL) ??? Monocytes % 5.5 4.0 - 13.0 (%) ??? Monocyte Abs 0.5 0.2 - 1.0 (x10(3)/mcL) ??? Eosinophils % 0.8 0.0 - 7.0 (%) ??? Eosinophils Abs 0.1 0.0 - 0.5 (x10(3)/mcL) ??? Basophils % 0.1 0.0 - 2.0 (%) ??? Basophils Abs 0.0 0.0 - 0.2 (x10(3)/mcL) ??? Immature Gran % 0.10 0.00 - 0.66 (%) ??? Deepali Gran Abs 0.01 0.00 - 0.05 (x10(3)/mcL) Resting MUGA scans [10/16/11]: Normal left ventricular function, estimated LVEF 64 %. CXR [10/16/11]: The lungs are well inflated and clear. The cardiomediastinal silhouette appears normal. Specifically, there is no evidence of lymph node enlargement. No pleural effusion or other abnormality is seen. PFTs [10/16/11]: Reviewed as scanned document in e- FVC: 101% predicted FEV1: 105% predicted DLCO corrected for Hgb : 99% CT scans of the neck, chest, abdomen and pelvis [10/16/11]: Neck: As on prior PET-CT, there are multiple enlarged lymph nodes in the left neck. The large largest of these is at level 3 measuring 2.1 x 3.7 cm. Nodes extend to level 4. No pathologic adenopathy is present on the right. There is no aggressive osseous lesions. Chest: The lungs are normal. No pulmonary nodules, areas of airspace consolidation or pleural effusion. The soft tissues of the chest are remarkable for a partially visualized left cervical chain lymphadenopathy, which is more clearly evaluated on the accompanying CT of the neck. A left supraclavicular lymph node is enlarged and is measured as noted in the below chart. No axillary or mediastinal lymphadenopathy. No hilar adenopathy. Abdomen: The liver and spleen are unremarkable. No hepatosplenomegaly. No evidence of dilated intrahepatic or extrahepatic biliary ducts. The pancreas, adrenal glands, and kidneys are unremarkable. No hydronephrosis. No abdominal lymphadenopathy, free fluid or free air. The bowel pattern is unremarkable, without evidence of dilated loops of small bowel or small bowel wall thickening. Pelvis: No pelvic sidewall or inguinal lymphadenopathy. No pelvic free fluid. Assessment and Plan: King Dickerson is a 40-year-old man with early stage IIA Hodgkin's disease diagnosed w/ a left neck biopsy. 1. Hodgkin's Lymphoma- Patient meets criteria to start treatment with ABVD at full dose. Proceed with day 1, cycle #1 ABVD today as scheduled. Will undergo restaging per protocol following completionof 2 cycles of ABVD chemotherapy. 2. Anxiety/depression - Continue Zoloft as prescribed. Reassurance provided. Patient may benefit from connection to social work or [place] support group in [facility] for additional support. Anxious toget back to work even if only part- time for the distraction and normalcy that work provides. 3. Tobacco use- Encouraged to stop smoking. Information packet for Smoking Cessation Program through [facility] clinic provider to the patient at the time of this visit. Discussed signs and symptoms of pulmonary toxicity related to Bleomycin. Screening PFTs were unremarkable. Will follow closely. 4. RTC- Per protocol. We will try to complete subsequent cycles of therapy at our [facility] for patient convenience. Total time of visit: 40 minutes Time spent in counseling and coordination of care: 30 minutes [place] Chavis, MSN, WAREHOUSE DISTRIBUTION SPECIALIST Nurse Practitioner Section of Hematology/Oncology Cc: ISABEL NIETO APRN * Day Stahl RN - 10/21/2011 11:13 AM EDT RESEARCH NURSE OFFICE NOTE Cycle 1, Day 1 [id number] Phase II Trial of response-Adapted Chemotherapy Based On Positron Emission Tomography for non-Bulky Stage I and II Hodgkin Lymphoma SUBJECTIVE [facility] , for appt w/ D. MARCY Chavis, following labwork, for start of Cycle 1. No sx of infection. Baseline Sx/AE Severity Intervention Date Resolved STUDY ASSESSMENTS COMPLETED today 10/21/2011 labwork (CBC, CMP): platelets = 218k, ANC = 7220 Protocol Requirements for treatment with ABVD include: 9.1 ...platelet > 75k,. ASSESSMENT & PLAN Pt does meet criteria to start treatment with ABVD at full dose. Verified that chemotherapy orders are complete, and consistent and accurate according to study plan. Chemotherapy education provided verbally, and medication education sheets provided for each of the4 drugs. Education re: n/v, fevers, infection pre-cautions provided. Provided with prescriptions for prn ativan and ondansetron for home use 1. Pt agrees to continue on protocol [id number], proceeding with ABVD today (Cycle 1 Day 1). Education re protocol requirements. Pt stated understanding of this information. 2. Next study-related appts: Cycle 1, Day 15: 11/04/11, likely to be arranged for [facility] Amber Gonzalez. 3. Cycle 2 planned to begin in 4 weeks, also planning to make arrangements in [place] per pt preference.. Pt in agreement with this plan. documented in this encounter Plan of Treatment Not on file documented as of this encounter Visit Diagnoses Diagnosis HD (Hodgkin's disease)- Primary Hodgkin's disease, unspecified documented in this encounter Care Teams Set Up Mechanic Stamping Machines Relationship Specialty Start Date End Date Isabel Nieto APRN [address] [place] [address] PCP - General 09/30/11 10/05/13 documented as of this encounter
--- OUTSIDE RECORDS SUMMARY | 2024-01-24 11:03 | XMS_ITS | Encounter Summary ---
Author Organization [facility] Address [facility] [place] [address] Care Team Providers Care Sales Data Analyst Name Role Phone Reginald Nieto APRN Primary Care Provide r Encounter Details Date Type Department Care Team (Late st Contact Info) Description 11/18/2011 Orders Only Hematology [place] [address] Stevie Domingo MD [facility] DR HEMATOLOGY [place] [address] Hodgkin lymphoma (Primary Dx) Social History Tobacco [...] Lab request Lab Routine Hodgkin lymphoma Expected: 12/10/2011 (Approximate), Expires: 12/11/2011 documented as of this encounter Results * XR chest routine [...] 10/16/2011. Stevie Domingo MD IMG DX ORDERABLES * PET-CT skull base to mid thigh (12/10/2011 1:21 PM EDT) Anatomical Region Laterality Modality Other 12/10/2011 1:21 PM EDT Narrative 12/18/2011 10:22 AM EDT Examination PET-CT SCAN, 12/11/11 Procedure:Following IV injection of 64-iacgpp-0-deoxyglucose (FDG) and a standard uptake period, a [...] after 2 cycles ABVD on lymphoma protocol [id number]. Comparison PET-CT, 10/02/2011. Findings Head and Neck [...] PET-CT SCAN, 12/11/11 Procedure:Following IV injection of 06-meqjaz-1-deoxyglucose (FDG) and a standard uptake period, a [...] after 2 cycles ABVD on lymphoma protocol [id number]. Comparison PET-CT, 10/02/2011. Findings Head and Neck [...] attending Stevie Domingo MD IMG PET ORDERABLES * Sedimentation rate (12/10/2011 9:19 AM EDT) Sedimentation Rate Automated 7 0 - 15 mm/hr CERNER MILLENNIUM Blood specimen (specimen) 12/10/2011 9:19 AM EDT 12/10/2011 9:26 AM EDT Narrative Resulting Agency Comment Spec In Lab Stevie Domingo MD HEMATOLOGY ORDERABLE S CERNER DARIANENNIUM * (ABNORMAL) Comprehensive metabolic panel (non-fasting) (12/10/2011 9:19 AM EDT) Glucose 118 60 - 199 mg/dL CERNER MILLENNIUM Comment:Diabetes: >=200 mg/d L plus symptoms Blood Urea Nitrogen 9(L) 10 - 20 mg/dL CERNER MILLENNIUM Creatinine 0.55(L) 0.80 - 1.50 mg/dL CERNER MILLENNIUM Comment: Please note that the pediatric reference intervals supplied above were not validated at [facility]. Results from pediatric patients should be interpreted in conjunction to the patient's age, height and muscle mass. Sodium 140 135 - 145 mmol/L CERNER MILLENNIUM Potassium 4.0 3.5 - 5.0 mmol/L CERNER MILLENNIUM Comment: Please note: ??Patients with WBC >100,000 may have falsely elevated Potassium levels. ??For accurate Potassium quantification in these patients send serum separator tube (gold top) for subsequent determinations. ??Contact the Clinical Chemistry Laboratory if there are any questions. Chloride 105 98 - 107 mmol/L CERNER MILLENNIUM Carbon Dioxide 28 22 - 31 mmol/L CERNER MILLENNIUM Anion Gap 7 5 - 15 mmol/L CERNER MILLENNIUM Calcium 8.8 8.5 - 10.5 mg/dL CERNER MILLENNIUM Protein, Total 6.5 6.4 - 8.3 gm/dL CERNER MILLENNIUM Albumin 4.4 3.2 - 5.2 gm/dL CERNER MILLENNIUM Aspartate Aminotransferase 12 0 - 39 unit/L CERNER MILLENNIUM Alanine Aminotransferase 17 0 - 55 unit/L CERNER MILLENNIUM Alkaline Phosphatase 113 40 - 120 unit/L CERNER MILLENNIUM Bilirubin, Total 0.2 0.2 - 1.3 mg/dL CERNER MILLENNIUM Bilirubin, Direct <0.1 0.0 - 0.3 mg/dL CERNER MILLENNIUM Est [...] J Am Soc Nephrol;6:1963-72. Blood specimen (specimen) 12/10/2011 9:19 AM EDT 12/10/2011 9:26 AM EDT Narrative Resulting Agency Comment Spec In Lab Stevie Domingo MD CHEMISTRY ORDERABLES PHILIPPE CAICEDO * (ABNORMAL) CBC (with Diff) (12/10/2011 9:19 AM EDT) White Blood Cell 6.9 4.0 - 10.0 x10(3)/mc L CERNER MILLENNIUM Red Blood Cell 4.43(L) 4.63 - 6.08 x10(6)/mc L CERNER MILLENNIUM Hemoglobin 13.3(L) 13.7 - 17.5 gm/dL CERNER MILLENNIUM Hematocrit 39.9(L) 40.0 - 51.0 % CERNER MILLENNIUM Mean Cell Volume 90.1 79.0 - 92.0 fL CERNER MILLENNIUM Mean Cell Hemoglobin 30.0 25.6 - 32.2 pg CERNER MILLENNIUM Mean Cell Hemoglobin Concentration 33.3 32.0 - 36.5 gm/dL CERNER MILLENNIUM Platelet 206 145 - 370 x10(3)/mc L CERNER MILLENNIUM RDW Standard Deviation 44.5 35.0 - 46.0 fL CERNER MILLENNIUM RDW coefficient of variation 13.6 10.9 - 14.4 % CERNER MILLENNIUM Mean Platelet Volume 11.7 9.0 - 12.0 fL CERNER MILLENNIUM Blood specimen (specimen) 12/10/2011 9:19 AM EDT 12/10/2011 9:26 AM EDT Narrative Resulting Agency Comment Spec In Lab Stevie Domingo MD HEMATOLOGY ORDERABLE S PHILIPPE CAICEDO documented in this encounter Visit Diagnoses Diagnosis Hodgkin lymphoma- Primary Hodgkin's disease, unspecified Hodgkin lymphoma Hodgkin's disease, unspecified Hodgkin lymphoma Hodgkin's disease, unspecified documented in this encounter Care Teams Sales Data Analyst Relationship Specialty Start Date End Date Reginald Nieto APRN [address] [place] [address] PCP - General 09/30/11 10/05/13 documented as of this encounter
--- OUTSIDE RECORDS SUMMARY | 2024-01-24 11:03 | XMS_ITS | Encounter Summary ---
Author Organization [facility] Address [facility] [place] [address] Care Team Providers Care Roofer Name Role Phone Reginald Nieto APRN Primary Care Provide r Encounter Details Date Type Department Care Team (Late st Contact Info) Description 10/19/2011 Orders Only Hematology [place] [address] Stevie Domingo MD [facility] DR [place] [address] Hodgkin disease (Primary Dx) Social History Tobacco [...] Lab request Lab Routine Hodgkin disease Expected: 10/21/2011, Expires: 10/31/2011 documented as of this encounter Results * Comprehensive metabolic panel (non-fasting) (10/21/2011 8:44 AM EDT) Glucose 69 60 - 199 mg/dL [facility] Comment:Diabetes: >=200 mg/d L plus symptoms Blood Urea Nitrogen 14 10 - 20 mg/dL [facility] Creatinine 0.90 0.80 - 1.50 mg/dL [facility] Comment: Please note that the pediatric reference intervals supplied above were not validated [place] [facility] Results from pediatric patients should be interpreted [...] Lab Stevie Domingo MD CHEMISTRY ORDERABLES CERROSEANNA FARMERENNIUM * CBC (with Diff) (10/21/2011 8:44 AM [...] MILLENNIUM Platelet 218 145 - 370 x10(3)/mcL CERNER MILLENNIUM RDW Standard Deviation 42.5 35.0 - 46.0 fL PHILIPPE FARMERENNIUM RDW coefficient of variation 12.9 10.9 - 14.4 % PHILIPPE FARMERENNIUM Mean Platelet Volume 11.1 9.0 - 12.0 fL PHILIPPE FARMERENNIUM Blood specimen (specimen) 10/21/2011 8:44 AM EDT 10/21/2011 8:53 AM EDT Narrative Resulting Agency Comment Spec In Lab Stevie Domingo MD HEMATOLOGY ORDERABLE S [facility] documented in this encounter Visit Diagnoses Diagnosis Hodgkin disease- Primary Hodgkin's disease, unspecified documented in this encounter Care Teams Roofer Relationship Specialty Start Date End Date Reginald Nieto APRN [address] [place] [address] PCP - General 09/30/11 10/05/13 documented as of this encounter
--- OUTSIDE RECORDS SUMMARY | 2024-01-24 11:03 | XMS_ITS | Encounter Summary ---
Author Organization Count Includes [facility] [address] Care Team Providers Care Regional Marketing Manager Name Role Phone Reginald Nieto APRN Primary Care Provide r Encounter Details Date Type Department Care Team (Latest Contact Info) Description 12/10/2011 8:44 AM EDT - 12/10/2011 9:05 AM EDT Hospital [place] [id number] Hodgkin lymphoma Social History Tobacco Use Types [...] 11/19/2011 03/09/2012 documented as of this encounter Miscellaneous Notes * Miscellaneous - Provider, Scanning - 12/14/2011 5:30 PM EDT documented in this encounter Plan of Treatment Not on file documented as of this encounter Procedures Procedure Name Priority Date/Time Associated Diagnosis Comments CT NECK SOFT TISSUE W CONTRAST Routine 12/10/2011 11:10 AM EDT Hodgkin's disease, unspecified documented in this encounter Results * CT NECK SOFT TISSUE WITH CONTRAST (12/10/2011 11:10 AM EDT) Anatomical Region Laterality Modality Neck, Head Computed Tomogra phy 12/10/2011 11:1 0 AM EDT Narrative 12/10/2011 2:[address] Neck With Contrast Clinical History restaging following 2 cycle ABVD on Lymphoma protocol [id number] report maximal bi dimensional jaci measurements do NOT use RECIST criteria Comparison 10/16/2011. Technique CT of the neck performed following intravenous administration of 110 mL Omnipaque 350. Findings There is interval decrease in size of left neck adenopathy. ??The left-sided node at the junction of level 2 and level 3 now measures approximately 1.8 cm x 8 mm (previous measurement 2.1 x 3.7 cm) there is no new adenopathy. ??No pathologic adenopathy is present on the right. ??There is no aggressive osseous lesion. There is no soft tissue mass. Noncalcified atherosclerotic plaque is present at the left carotid bifurcation without significant focal narrowing. ?? Impression Interval reduction in size of left side lymph nodes. Procedure Note Jay Monge MD - 12/10/[address] Neck With Contrast Clinical History restaging following 2 cycle ABVD on Lymphoma protocol [id number] report maximal bi dimensional jaci measurements do NOT use RECIST criteria Comparison 10/16/2011. Technique CT of the neck performed following intravenous administration of 110 mL Omnipaque 350. Findings There is interval decrease in size of left neck adenopathy. Theleft-sided node at the junction of level 2 and level 3 now measures approximately 1.8cm x 8 mm (previous measurement 2.1 x 3.7 cm) there is no new adenopathy. No pathologic adenopathy is present on the right. There is no aggressiveosseous lesion. There is no soft tissue mass. Noncalcified atherosclerotic plaqueis present at the left carotid bifurcation without significant focalnarrowing. Impression Interval reduction in size of left side lymph nodes. Stevie Domingo MD IMG CT ORDERABLES documented in this encounter Visit Diagnoses Diagnosis Hodgkin lymphoma Hodgkin's disease, unspecified documented in this encounter Care Teams Regional Marketing Manager Relationship Specialty Start Date End Date Reginald Nieto, HOME HEALTH CARE RESPIRATORY THERAPIST [address] [place] [address] PCP - General 09/30/11 10/05/13 documented as of this encounter
--- OUTSIDE RECORDS SUMMARY | 2024-01-24 11:03 | XMS_ITS | Encounter Summary ---
Author Organization [facility] [place] [address] Care Team Providers Care Wardrobe Assistant Name Role Phone Reginald Nieto APRN Primary Care Provide r Reason for Visit * Reason Comments Chemotherapy Cycle 2 day 15 Encounter Details Date Type Department Care Team (Late st Contact Info) Description 12/02/2011 11:30 AM EDT Office Visit Hematology Oncology at [address] [phone] CLINIC, DR [facility] HEM/ONC Hodgkin's [...] Progress Notes * Amberly Culp RN - 12/02/2011 2:39 PM EDT INFUSION THERAPY ADMINISTRATION NOTES DIAGNOSIS: Hodgkins CYCLE #:2 day 15~CALGB [id number] REASON FOR VISIT: ABVD SUBJECTIVE King offers no complaints. OBJECTIVE LAB DATA:WNL IV ACCESS: PIV Pre administration: Chemotherapy orders [...] 18 Units, Intravenous, ONCE, 1 dose, On Wed12/02/11 at 1130, Administer over 30 Minutes, 1 unit = 1 mg New Bag 12/02/2011 12:40 PM EDT 18 Units 112 mL/hr dacarbazine (DTIC) 660 mg in dextrose 5% 316 mL chemo infusion 660 mg, Intravenous, ONCE, 1 dose, On Wed12/02/11 at 1130, Administer over 30 Minutes New Bag 12/02/2011 1:18 PM EDT 660 mg 632 mL/hr DOXOrubicin (ADRIAMYCIN) chemo injection 44 mg 44 mg, Intravenous, ONCE, 1 dose, On Wed12/02/11 at 1130, Administer over 5 Minutes, Vesicant/irritant. Avoid extravasation Given 12/02/2011 12:10 PM EDT 44 mg 264 mL/hr fosaprepitant (EMEND) 150 mg in sodium chloride 0.9% 155 mL infusion 150 mg, Intravenous, ONCE, 1 dose, On Wed12/02/11 at 1130, Administer over 30 Minutes New Bag 12/02/2011 11:35 AM EDT 150 mg 310 mL/hr LORazepam (ATIVAN) tablet 1 mg 1 mg, Oral, ONCE, 1 dose, On Wed12/02/11 at 1130, Routine Given 12/02/2011 11:00 AM EDT 1 mg palonosetron (ALOXI) injection 0.25 mg 0.25 mg, Intravenous, ONCE, 1 dose, On Wed12/02/11 at 1130, Routine Given 12/02/2011 11:25 AM EDT 0.25 mg sodium chloride 0.9% infusion 500 mL, Intravenous, ONCE, 1 dose, On Wed12/02/11 at 1130, With chemo New Bag 12/02/2011 11:00 AM EDT 500 mLs mL/hr vinBLAStine (VELBAN) chemo injection 11 mg 11 mg, Intravenous, ONCE, 1 dose, On Wed12/02/11 at 1130, Administer over 5 Minutes, FOR IV USE ONLY. FATAL IF GIVEN BY OTHER ROUTES. Vesicant/irritant Avoid extravasation Given 12/02/2011 12:30 PM EDT 11 mg 132 mL/hr documented in this encounter Care Teams Wardrobe Assistant Relationship Specialty Start Date End Date Reginald Nieto APRN [address] [place] [address] PCP - General 09/30/11 10/05/13 documented as of this encounter
--- OUTSIDE RECORDS SUMMARY | 2024-01-24 11:03 | XMS_ITS | Encounter Summary ---
Author Organization [facility] [place] [address] Care Team Providers Care Paper Bag Press Operator Name Role Phone Reginald Nieto APRN Primary Care Provide r Reason for Visit * Reason Comments Injections Neulasta injection Encounter Details Date Type Department Care Team (Late st Contact Info) Description 12/03/2011 3:00 PM EDT Office Visit Hematology Oncology at [address] [phone] CLINIC, DR [facility] HEM/ONC Jay Kaur MD [address] [place] [address] Hodgkin disease Discharge Disposition: Home Social History [...] Sign Reading Time Taken Comments Blood Pressure 119/72 12/03/2011 11:10 AM EDT Pulse 87 12/03/2011 11:10 AM EDT Temperature 36.8 ??C (98.2 ??F) 12/03/2011 11:10 AM E DT Respiratory Rate 18 12/03/2011 11:10 AM EDT Oxygen Saturation 99% 12/03/2011 11:10 AM EDT Inhaled Oxygen Concentration - - Weight - - Height - - Body Mass Index - - documented in this encounter Progress Notes * May Carbone, RN - 12/03/2011 11:56 AM EDT Treatment Started: 1105 Treatment Ended: 1120 Diagnosis: Hodgkin's Lymphoma (Protocol # CALGB [id number]) Treatment: Neulasta injection for anticipated chemotherapy induced neutropenia Subjective: King reports that he had a good night and this is one of the best days after chemo Ihave had. Does report some slight nausea after drinking an ensure at home this morning, but controlling it with ativan, compazine and zofran prn. Denies any pain. Plan: Return to clinic in two weeks for consideration of next cycle of ABVD documented in this encounter Plan of Treatment Not on file documented as of this encounter Visit Diagnoses Diagnosis Hodgkin disease Hodgkin's disease, unspecified documented in this encounter Administered Medications Inactive Administered Medications - up to 3 most recent administrations Medication Order MAR Action Action Date Dose Rate Site pegfilgrastim (NEULASTA) injection 4 mg 4 mg, Subcutaneous, ONCE, 1 dose, On Veronica 12/03/11 at 1500, NOTE DOSE = 4 MG , Routine Given 12/03/2011 11:27 AM EDT 4 mg documented in this encounter Care Teams Paper Bag Press Operator Relationship Specialty Start Date End Date Reginald Nieto APRN [address] [place] [address] PCP - General 09/30/11 10/05/13 documented as of this encounter
--- OUTSIDE RECORDS SUMMARY | 2024-01-24 11:03 | XMS_ITS | Encounter Summary ---
Author Organization [facility] [place] [address] Care Team Providers Care Rn Immunology Name Role Phone Reginald Nieto APRN Primary Care Provide r Encounter Details Date Type Department Care Team (Late st Contact Info) Description 10/29/2011 Telephone Hematology [place] [phone] Day Stahl, RN Social History Tobacco Use [...] Telephone Encounter - Day Stahl, RN - 10/29/2011 10:21 AM EDT Research Nurse Telephone Note [id number]: A Phase II Trial of Response-Adapted Chemotherapy Based on Positron Emission Tomography forNon-Bulky Stage I or II Hodgkin Lymphoma C1D1: 10/21/11 Call placed to pt, spoke with , to inquire at status and to report that care and treatment on O04712 may be conducted at [facility] in [place], [place]. This video games storywriter will continue to monitor pt's status, and assist with scheduling as needed. Informed that this video games storywriter remains lathe operator contact lens for any questions, concerns, and sx management. Plan: - Cycle 1 Day 15 ABVD 11/04/11, [facility] at [facility] Pt in agreement with this plan, and agrees to call with questions, concerns. documented in this encounter Plan of Treatment Not on file documented as of this encounter Visit Diagnoses Not on filedocumented in this encounter Care Teams Rn Immunology Relationship Specialty Start Date End Date Reginald Nieto APRN [address] [place] [address] PCP - General 09/30/11 10/05/13 documented as of this encounter
--- OUTSIDE RECORDS SUMMARY | 2024-01-24 11:03 | XMS_ITS | Encounter Summary ---
Author Organization [facility] [place] [address] Care Team Providers Care Shop Router Name Role Phone Reginald Nieto APRN Primary Care Provide r Encounter Details Date Type Department Care Team (Late st Contact Info) Description 11/03/2011 Telephone Hematology [place] [phone] Day Stahl, RN Social History Tobacco Use [...] Telephone Encounter - Day Stahl RN - 11/03/2011 9:57 AM EDT Research Nurse Telephone Note Cycle 1, Day 14 [id number]: A Phase II Trial of Response-Adapted Chemotherapy Based on Positron Emission Tomography forNon-Bulky Stage I or II Hodgkin Lymphoma C1D1: 10/21/11 ([facility]) C1D15: 11/04/11 ([facility], pending) Call placed to pt to inquire at status and review plan for Day 15; spoke with . She reports pt has local reaction at site of IV placement on L wrist; onset 10/31/11. Describes site as red and tender, but not warm or hot, not indurated. States pt without fever, chills, and other s/e. Also, notes that pt has inconsistently been taking Zoloft, and she notes that he is becomingmore depressed and anxious as treatment date nears. In addition, asking about feasibility of central line placement for chemotherapy. AE Table (for non-laboratory events), starting 10/21/11 (CTCAE v4.0): Date of onset Grade at onset Highest grade Date resolved Interventions nausea 10/21/11 1 1 10/24/11 Ondansetron, timing of meals Injection site rxn 10/31/11 1 Warm compress, monitor Plan: - Cycle 1 Day 15 ABVD 11/04/11; lab work 11/03/11 - warm compresses to IV site - consider central line - consider anxiolytic prescription; enc taking zoloft daily, as prescribed in agreement with this plan, and agrees to call with questions, concerns. documented in this encounter Plan of Treatment Not on file documented as of this encounter Visit Diagnoses Not on filedocumented in this encounter Care Teams Shop Router Relationship Specialty Start Date End Date Reginald Nieto APRN [address] [place] [address] PCP - General 09/30/11 10/05/13 documented as of this encounter
--- OUTSIDE RECORDS SUMMARY | 2024-01-24 11:03 | XMS_ITS | Encounter Summary ---
Author Organization [facility] Address [facility] [place] [address] Care Team Providers Care Event Planner Name Role Phone Reginald Nieto APRN Primary Care Provide r Encounter Details Date Type Department Care Team (Latest Contact Info) Description 12/10/2011 9:06 AM EDT - 12/10/2011 11:59 PM EDT Hospital [place] [phone] CLINIC, Stevie Page MD [facility] [place] [address] Hodgkin lymphoma Discharge Disposition: Home Social History [...] Date/Time Associated Diagnosis Comments POCT GLUCOSE Routine 12/10/2011 11:40 AM EDT DIFFERENTIAL, AUTOMATED Routine 12/10/2011 9:19 AM EDT SEDIMENTATION RATE Routine 12/10/2011 9: 19 AM EDT Hodgkin lymphoma CBC (WITH DIFF) Routine 12/10/2011 9:19 AM EDT Hodgkin lymphoma COMPREHENSIVE METABOLIC PANEL Routine 12/10/2011 9:19 AM EDT Hodgkin lymphoma documented in this encounter Results * POCT GLUCOSE (12/10/2011 11:40 AM EDT) Glucose, POC 83 60 - 199 mg/dL PHILIPPE MILLENNIUM Comment: Supplemental ranges: <110 mg/dL before meals <200 mg/dL all other times of the day Blood specimen (specimen) 12/10/2011 11:40 AM EDT 12/10/2011 11:40 AM EDT Stevie Domingo MD POINT OF CARE TEST O RDERABLES PHILIPPE CAICEDO * (ABNORMAL) DIFFERENTIAL, AUTOMATED (12/10/2011 9:19 AM EDT) Neutrophil % 81.0(H) 34.0 - 71.0 % CERNER MILLENNIUM Neutrophil Absolute 5.56 1.50 - 6.30 x10(3)/mc L CERNER MILLENNIUM Lymph % 10.5(L) 19.0 - 53.0 % CERNER MILLENNIUM Lymphocytes Abs 0.7(L) 1.0 - 3.6 x10(3)/mc L CERNER MILLENNIUM Monocyte % 6.3 4.0 - 13.0 % CERNER MILLENNIUM Monocyte Abs 0.4 0.2 - 1.0 x10(3)/mc L CERNER MILLENNIUM Eos % 1.3 0.0 - 7.0 % CERNER MILLENNIUM Eosinophils Abs 0.1 0.0 - 0.5 x10(3)/mc L CERNER MILLENNIUM Basophil % 0.3 0.0 - 2.0 % CERNER MILLENNIUM Baso Absolute 0.0 0.0 - 0.2 x10(3)/mc L CERNER MILLENNIUM Immature Gran % 0.60 0.00 - 0.66 % CERNER MILLENNIUM Comment: Immature granulocytes(IG's)percentage and absolute count will include metamyelocytes, myelocytes, and promyelocytes. Blood smears from CBCs yielding IG's will be scanned manually for concordance. If this scan disagrees with the automated IG or if promyelocytes are noted, a manual differential will be performed. Immature Gran Absolute 0.04 0.00 - 0.05 x10(3)/mc L [facility] Blood specimen (specimen) 12/10/2011 9:19 AM EDT 12/10/2011 9:26 AM EDT Stevie Domingo MD HEMATOLOGY ORDERABLE S Performing Organization Address [facility] de Phone Number [facility] * Sedimentation rate (12/10/2011 9:19 AM EDT) Sedimentation Rate Automated 7 0 - 15 mm/hr [facility] Blood specimen (specimen) 12/10/2011 9:19 AM EDT 12/10/2011 9:26 AM EDT Narrative Resulting Agency Comment Spec In Lab Stevie Domingo MD HEMATOLOGY ORDERABLE S Performing Organization Address City/[facility] Co de Phone Number [facility] * (ABNORMAL) Comprehensive metabolic panel (non-fasting) (12/10/2011 9:19 AM EDT) Glucose 118 60 - 199 mg/dL [facility] Comment:Diabetes: >=200 mg/d L plus symptoms Blood Urea Nitrogen 9(L) 10 - 20 mg/dL CERNER MILLENNIUM Creatinine 0.55(L) 0.80 - 1.50 mg/dL CERNER MILLENNIUM Comment: Please note that the pediatric reference intervals supplied above were not validated at [facility]. Results from pediatric patients should be interpreted [...] In Lab Stevie Domingo MD CHEMISTRY ORDERABLES [facility] * (ABNORMAL) CBC (with Diff) (12/10/2011 9:19 [...] Cell Hemoglobin 30.0 25.6 - 32.2 pg PHILIPPE FARMERENNIUM Mean Cell Hemoglobin Concentration 33.3 32.0 - 36.5 gm/dL CERROSEANNA FARMERENNIUM Platelet 206 145 - 370 x10(3)/mc L CERROSEANNA FARMERENNIUM RDW Standard Deviation 44.5 35.0 - 46.0 fL CERNER MILLENNIUM RDW coefficient of variation 13.6 10.9 - 14.4 % PHILIPPE FARMERENNIUM Mean Platelet Volume 11.7 9.0 - 12.0 fL PIHLIPPE FARMERENNIUM Blood specimen (specimen) 12/10/2011 9:19 AM EDT 12/10/2011 9:26 AM EDT Narrative Resulting Agency Comment Spec In Lab Stevie Domingo MD HEMATOLOGY ORDERABLE S [facility] documented in this encounter Visit Diagnoses Diagnosis Hodgkin lymphoma Hodgkin's disease, unspecified documented in this encounter Care Teams Event Planner Relationship Specialty Start Date End Date Reginald Nieto APRN [address] [place] [address] PCP - General 09/30/11 10/05/13 documented as of this encounter
--- OUTSIDE RECORDS SUMMARY | 2024-01-24 11:04 | XMS_ITS | Encounter Summary ---
Author Organization [facility] Address [facility] [place] [address] Care Team Providers Care Wellhead Pumper Name Role Phone Reginald Nieto APRN Primary Care Provide r Encounter Details Date Type Department Care Team (Latest Contact Info) Description 10/09/2011 7:07 PM EDT - 10/09/2011 11:59 PM EDT [place] [phone] Slick Arreola MD [facility] [address] [place] [address] Discharge Disposition: Home Social History Tobacco Use Types Packs/Day Years Used Date Smoking Tobacco: Never Assessed Sex and Gender Information Value Date Recorded Sex Assigned at Not on file Gender Identity Not on file Sexual Orientation Not on file documented as of this encounter Plan of Treatment Not on file documented as of this encounter Procedures Procedure Name Priority Date/Time Associated Diagnosis Comments SURGICAL PATHOLOGY REPORT Routine 10/09/2011 7:43 AM EDT documented in this encounter Results * SURGICAL PATHOLOGY REPORT (10/09/2011 7:43 AM EDT) Surgical Pathology Report ? [facility] ? Provider: ?? SLICK ARREOLA ?Pt. Name: ?? NOHEMY LEE ? Acc #: ?[id number] ?Pt. ? Col Date: ?? 10/09/2011 ? /Sex: ?1970,(40 years),Male ? Rec Date: ?? 10/12/2011 ? LOC: ?[facility] ? SURGICAL PATHOLOGY ? ---Pathologic Diagnosis--- ? Neck mass, biopsy : Involved by Classical Hodgkin Lymphoma ? 10/13/11 ? PK ? 10/13/11 Verified by: ? Nitin Randhawa MD ? Hematopathologist ? (Electronic Signature) ? The attending pathologist whose signature appears on this report has ? reviewed all diagnostic slides and has edited the gross and/or ? microscopic portion of the report in rendering the final pathologic ? diagnosis. ? ---Comment--- ? 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 ? We ??concur with the diagnosis issued previously for this specimen. Thank ? you for the opportunity to be involved in this case. ? ---Microscopic Description--- ? H&E, CD30, CD15, CD45, CD3, CD20, slides reviewed, microscopic description ? not recorded. ? ---Gross Description--- ? [facility] ([facility]) pathology slide(s) are reviewed. ??Refer ? to Diagnosis and Specimen Submitted for specific case information. ? For the full text of the [facility] report(s) please refer to Non-DH ? Documentation Pathology in the electronic health record (eDH). ? ---Clinical Information--- ? Specimen Submitted: ? CONSULTATION CASE ? A - 7 slides labeled [id number], collection date 10/01/11. ? Report to: ? [facility] ? Surgical Pathology Department ? [facility] [address] ? [address] ? [place], [place] ??[address] ? PHILIPPE CAICEDO 10/09/2011 7:43 AM EDT Slick Arreola MD PATHOLOGY/CYTOLOGY O RDERABLES PHILIPPE CAICEDO documented in this encounter Visit Diagnoses Not on filedocumented in this encounter Care Teams Wellhead Pumper Relationship Specialty Start Date End Date Reginald Nieto APRN [address] [place] [address] PCP - General 09/30/11 10/05/13 documented as of this encounter
--- OUTSIDE RECORDS SUMMARY | 2024-01-24 11:04 | XMS_ITS | Encounter Summary ---
Author Organization [facility] Address [address] [place] [address] Care Team Providers Care Concrete Building Assembler Name Role Phone Unknown, Provider Primary Care Provider Unava ilable Encounter Details Date Type Department Care Team (Late st Contact Info) Description 10/01/2011 Results Only [facility] Laboratory Services - [facility] ([facility]) [address] [place], [place] [address] Fernando Biggs MD [address], [place] [id number] Social History Tobacco Use Types Packs/Day Years Used Date Smoking Tobacco: Never Assessed Sex and Gender Information Value Date Recorded Sex Assigned at Not on file Gender Identity Not on file Sexual Orientation Not on file documented as of this encounter Plan of Treatment Not on file documented as of this encounter Procedures Procedure Name Priority Date/Time Associated Diagnosis Comments FLOW CYTOMETRY Routine 10/01/2011 8:13 EDT SURGICAL PATHOLOGY Routine 10/01/2011 0:00 EDT documented in this encounter Results * FLOW CYTOMETRY (10/01/2011 8:13 EDT) Pathology Report: FLOW CYTOMETRY REPORT Reports generated via electronic interface contain original data; however they are lacking the format of the original report. Caution should be taken when reading/interpreting unformatted reports. Name: ? KING LEE ? Accession #: ? [id number] : ? 1970 (Age: 40) ??M ?Collect Date: ? 10/01/2011 08:13 Location: ? [facility] ? Receive Date: ? 10/02/2011 08:00 Provider: ?FERNANDO BIGGS MD Copy to: ?ISABEL RIVERO METAL POLISHER AND BUFFER APPRENTICE ? FINAL IMMUNOPHENOTYPIC INTERPRETATION: ? Left neck mass, flow cytometric analysis: ??- No immunophenotypic evidence of a clonal cell population. ??See comment. ? COMMENT: ? The results of flow cytometry show no immunophenotypic evidence of involvement by a clonal lymphoproliferative disorder. ??Correlation of these findings with morphologic and clinical data is essential (see [id number].) ? Document reviewed and electronically signed by: ? ASHLEY LEE MD Report Date: ??10/07/2011 09:44 By the signature above, the attending physician certifies that he/she has personally conducted an evaluation of the described specimen and rendered or confirmed the above diagnosis. CLINICAL HISTORY: ? The patient is a 40-year-old man with a left neck mass. DESCRIPTION: ? The specimen consists of left neck mass from which a single cell suspension is prepared. ??Gating is performed using CD45 fluorescence and side scatter. Cellular viability (assessed by propidium iodide exclusion) is good (89%). Expression of the following markers is tested: CD2, CD3, CD4, CD5, CD7, CD8, CD10, CD11c, CD14, CD16, CD19, CD20, CD23, CD38, CD45, CD56, CD57, FMC-7, HLA-DR, kappa light chain, lambda light chain. ?? A majority of the lymphoid cells are T-lymphocytes (CD2+CD3+CD5+CD7+) with CD4+ and CD8+ subsets represented. ??The remaining lymphocytes are B-lymphocytes (CD19+CD20+) with both kappa+ and lambda+ subsets represented. ??B-cells are few in number but appear polytypic. ? This test was developed and its performance characteristics determined by the Department of Pathology and Laboratory Medicine, [place], [place] ??It has not been cleared or approved by the U.S. Food and Drug Administration. ?? End of Report ?? [facility] 10/01/2011 8:13 EDT 10/02/2011 8:00 EDT Fernando Biggs MD PATHOLOGY ORDERABLES [facility] [address] [place] [address] * SURGICAL PATHOLOGY (10/01/2011 0:00 EDT) Pathology Report: SURGICAL PATHOLOGY REPORT Reports generated via electronic interface contain original data; however they are lacking the format of the original report. Caution should be taken when reading/interpreting unformatted reports. Name: ? KING LEE ? Accession #: ? [id number] ? : ? 1970 (Age: 40) ??M ? Collect Date: ? 10/01/2011 ? Location: ? [facility] ? Receive Date: ? 10/01/2011 ? Provider: FERNANDO BIGGS MD Copy to: ISABEL RHODES MD ? Final Pathologic Diagnosis: ? Tissue from neck, mass, biopsy: - ??Classic Hodgkin's disease. ??See comment. Comment: ? The lesion shows Sebastián-Vicki cells in a lymphohistiocytic background. Immunohistochemical study, with appropriate positive and negative controls, has been performed on this case. Antibody (Clone) ? Result CD3 (Tcell) (rabbit monoclonal (SP7), [facility]) ? positive in background T-cells CD20 (Bcell) (L26, [facility]) ?positive in a few B-cells and some B-cell aggregates CD30 (Ki-1) (Tank-H2, [facility]) ? positive in Sebastián-Vicki cells Azeem-M1 (CD15) (MMA, [facility]) ?positive in Sebastián-Vicki cells CD45 (LCA) (PD7/26+2B11, [facility]) ? positive in lymphocytes, negative in Sebastián-Vicki ?cells This case has been reviewed by Dr. Katt Lee in consultation. ??(Dr. Reaves)/scott NOTE: ??One or more of the reagents used in immunohistochemical testing in this case may not have been cleared or approved by the U.S. Food and Drug Administration (FDA). ??The FDA has determined that such clearance or approval is not necessary. ??These tests are used for clinical purposes. ??They should not be regarded as investigational or for research. ??These reagents' ??performance characteristics have been determined by [facility]. ??This laboratory is certified under the Clinical Laboratory Improvement Amendments of 1988 (CLIA-88) as qualified to perform high complexity clinical laboratory testing. ?? Document reviewed and electronically signed by: Michael Reaves MD Report ??Date: 10/08/2011 07:00 By the signature above, the attending physician certifies that he/she has personally conducted a gross and/or microscopic examination of the described specimens and rendered or confirmed the above diagnosis. Specimen(s) Received: A. ?Left neck mass in RPM (sent to immunology) B. ? Left neck mass in formalin Clinical History: ? L neck mass; clinical diagnosis code: 754.2 Gross Description: ? Received in formalin labelled King Lee and B-left neck mass are hudson-white multiple soft tissue fragments measuring 1.2 x 1.1 x 0.5 cm in aggregate. ??The specimen was previously divided and part of it was sent to immunology. ??The specimen is entirely submitted in a single cassette. ??(Dr. Castellano)/[facility] End of Report [facility] 10/01/2011 10/01/2011 16: 24 EDT Fernando Biggs MD PATHOLOGY ORDERABLES [facility] [address] [place] [address] documented in this encounter Visit Diagnoses Not on filedocumented in this encounter Care Teams Concrete Building Assembler Relationship Specialty Start Date End Date Unknown, Provider, PCP - General 09/15/11 10/01/11 documented as of this encounter
--- OUTSIDE RECORDS SUMMARY | 2024-01-24 11:04 | XMS_ITS | Referral Summary ---
Author Organization [facility] Address [address] [place] [address] Care Team Providers Care Canal Driver Name Role Phone Josh Hernandez MD Primary Care Provider Social History Tobacco Use Types Packs/Day Years Used Date Smoking Tobacco: Never Assessed Sex and Gender Information Value Date Recorded Sex Assigned at Not on file Gender Identity Not on file Sexual Orientation Not on file Plan of Treatment Not on file Procedures Procedure Name Priority Date/Time Associated Diagnosis Comments HEPATITIS C AB W REFLEX TO HCV RNA BY PCR Routine 04/04/2020 7:30 EST from Last 3 Months or Most Recently Relevant to Health Maintenance Results * HEPATITIS C AB W REFLEX TO HCV RNA BY PCR (04/04/2020 7:30 EST) Hep C Antibody Negative Negative 04/08/2020 10:05 EST [facility] Blood VENOUS BLOOD / Unknown 04/04/2020 7:30 EST 04/05/2020 17:27 EST Provider Outr Resulting Lab CHEMISTRY & BLOOD GAS ORDERABLES [facility] [address] [place] [address] from Last 3 Months or Most Recently Relevant to Health Maintenance Care Teams Canal Driver Relationship Specialty Start Date End Date Josh Hernandez MD [address] [facility] [place] [address] PCP - General 05/20/21
--- OUTSIDE RECORDS SUMMARY | 2024-01-24 11:04 | XMS_ITS | Encounter Summary ---
Author Organization [facility] Address [facility] [place] [address] Care Team Providers Care Electric Detector Operator Name Role Phone Reginald Nieto APRN Primary Care Provide r Reason for Visit * Reason Comments Follow-up Encounter Details Date Type Department Care Team (Late st Contact Info) Description 10/08/2011 12:00 PM EDT Follow-Up [facility] [address] [place] [address] Josh Gonzalez MD [facility] [place]OLOG[place] [address] Hodgkin's disease (Primary Dx) Social History Tobacco Use Types Packs/Day Years Used Date Smoking Tobacco: Never Assessed Sex and Gender Information Value Date Recorded Sex Assigned at Not on file Gender Identity Not on file Sexual Orientation Not on file documented as of this encounter Progress Notes * Josh Gonzalez MD - 10/08/2011 10:32 AM EDT Problem list #1 Hodgkin's disease A biopsy performed and final path pending B PET scan shows stage IIA disease. 36 x 25 mm node in the left neck +4 x 5 mm node in the anteriormediastinum on the left side C. pathology shows classic Hodgkin's disease with Sebastián-Vicki cells #2 smoker Medication list Ibuprofen, coenzyme Q, [...] to the mass. There is in addition 8 small 4 x 5 mm node in the left anterior chest area most consistent with his lymphoma. His excisional biopsy was done last path is still pending but they have confirmed lymphoma. Review of systems Constitutional Positive for increasing fatigue but not severe. Negative for sweats or fevers or weight [...] 2 large tattoos one on each forearm Lymph nodes There is a large jaci [...] does not have children. He works at [employer] in [place]. Note that he does smoke. Labs White count 7.3 hemoglobin 14 platelets 182 Creatinine 0.79 BUN 14 alkaline phosphatase 86 ALT 29 AST 18 Albumin 3.8 total protein 6.3 calcium 8.6 TSH 0.4 Assessment We now the final path back and he has classic Hodgkin's disease with Sebastián- Vicki cells. This is a stage IIA with the bulk of the disease in the left cervical lymph node area and one very small 5 mm node in the left anterior mediastinum. He could be treated either with a combination of 3 cycles of ABVD post radiation or strictly with radiation. My bias is to treat it with radiation alone since he's a very early stage II and he is a smoker and am concerned about the risk of bleomycin and the long-term risk of secondary malignancies with chemotherapy. I would like to discuss this with the other physicians at [facility] and the lymphoma group and we'll do that the next few days and call Mr. Dickerson back. In the meantime we have an appointment in radiation therapy in about 10 days for a second opinion. Plan #1 radiation appointment in [place] October 18 This note was created using [employer] voice recognition software. It was reviewed for major content. However, there may be multiple small discrepancies and errors due to the voice recognition aspects of the software. documented in this encounter Plan of Treatment Not on file documented as of this encounter Visit Diagnoses Diagnosis Hodgkin's disease- Primary Hodgkin's disease, unspecified documented in this encounter Care Teams Electric Detector Operator Relationship Specialty Start Date End Date Reginald Nieto APRN [address] [place] [address] PCP - General 09/30/11 10/05/13 documented as of this encounter
--- OUTSIDE RECORDS SUMMARY | 2024-01-24 11:04 | XMS_ITS | Encounter Summary ---
Author Organization [facility] Address [facility] [place] [address] Care Team Providers Care On Air Host Name Role Phone Reginald Nieto APRN Primary Care Provide r Reason for Visit * Reason Comments Follow-up Encounter Details Date Type Department Care Team (Late st Contact Info) Description 10/13/2011 11:00 AM EDT Office Visit [place]ology [place] [id number] Stevie Domingo MD [facility] [address] [place]EMAT[place] [address] Hodgkin disease (Primary Dx) Discharge Disposition: Home [...] Sign Reading Time Taken Comments Blood Pressure 114/63 10/13/2011 11:11 AM EDT Pulse 69 10/13/2011 11:11 AM EDT Temperature 36.6 ??C (97.9 ??F) 10/13/2011 1 1:11 AM EDT Respiratory Rate 18 10/13/2011 11:1 1 AM EDT Oxygen Saturation 100% 10/13/2011 11: 11 AM EDT Inhaled Oxygen Concentration - - Weight 63.8 kg (140 lb 10.5 oz) 012 11:11 AM EDT Height 175.9 cm (5' 9.25) 10/13/2011 1 1:11 AM EDT Body Mass Index 20.62 10/13/2011 11:11 AM EDT documented in this encounter Progress Notes * Stevie Domingo MD - 10/13/2011 3:40 PM EDT Images from the original note were not included. Subjective: Patient ID: King Dickerson is a 40 y.o. male. HPI The patient is a 40-year-old male who [...] been reviewed here as well as at [facility]. He has no systemic symptoms. No [...] that was hypermetabolic in the chest. He now presents for further discussion regarding therapy. He has not yet had his echocardiogram herpulmonary function tests. He has also not had CTs with contrast. Patient Active Problem List Diagnoses Code ??? Depression 311L ??? Hodgkin disease 201.90H Current outpatient prescriptions:sertraline (ZOLOFT) 25 mg tablet, Take 25 mg by mouth daily., Disp: , Rfl: ; melatonin 10 mg Tab, Take 10 mg by mouth nightly as needed., Disp: , Rfl: ; Garlic 1,000 mg Cap, Take 1,000 mg by mouth daily., Disp: , Rfl: ; co-enzyme Q-10 50 mg capsule, Take 50 mg by mouth daily., Disp: , Rfl: ; Cholecalciferol, Vitamin D3, (VITAMIN D-3) 1,000 unit Chew, Take 1,000 Units by mouth daily., Disp: , Rfl: PEDIATRIC MULTIVIT COMB #19/FA (CHILDREN'S MULTI-VIT GUMMIES ORAL), Take by mouth daily., Disp: , Rfl: No Known Allergies History Social History ??? Marital Status: Spouse Name: N/A Number of Children: N/A ??? Years of Education: N/A Occupational History ??? Not on file. Social History Main Topics ??? Smoking status: Current Everyday Smoker -- 0.5 packs/day Types: Cigarettes ??? Smokeless tobacco: Not on file ??? Alcohol Use: 1.0 oz/week 2 drink(s) per week ??? Drug Use: No ??? Sexually Active: Not on file Other Topics Concern ??? Not on file Social History Narrative He smokes half a pack a day. Occasional alcohol use. No HIV risks. No exposures to toxins chemicalsor radiation. no travel outside the countryNo cancer in the family one brother and one sister are healthy he has no children Review of Systems Constitutional: Negative for fever, fatigue and unexpected weight change. HENT: Negative for nosebleeds. Respiratory: Negative for cough and shortness of breath. Cardiovascular: Negative for chest pain and palpitations. Gastrointestinal: Negative for abdominal pain and diarrhea. Musculoskeletal: Negative for back pain. Skin: Negative for rash. Neurological: Negative for speech difficulty. Hematological: Negative for adenopathy. Does not bruise/bleed easily. All other systems reviewed and are negative. Objective: Physical Exam Constitutional: He is oriented to person, place, and time. He appears well- nourished. No distress. HENT: Mouth/Throat: No oropharyngeal exudate. Eyes: No scleral icterus. Neck: Cardiovascular: Normal rate, regular rhythm and normal heart sounds. Pulmonary/Chest: Breath sounds normal. He has no wheezes. Abdominal: Soft. Bowel sounds are normal. There is no splenomegaly or hepatomegaly. No tenderness. Musculoskeletal: He exhibits no edema. Lymphadenopathy: He has no cervical adenopathy. Left cervical: No superficial cervical and no deep cervical adenopathy present. He has no axillary adenopathy. Right: No inguinal adenopathy present. Left: No inguinal adenopathy present. Neurological: He is oriented to person, place, and time. Laboratory data from outside Hospital: White count 7.3 (no differential available}, hemoglobin 14, platelets 182, albumin 3.8 Pathology from cervical node: SURGICAL PATHOLOGY ---Pathologic Diagnosis--- Neck mass, biopsy : Involved by Classical Hodgkin Lymphoma 10/13/11 PK 10/13/11 Verified by: Nitin Randhawa MD Hematopathologist (Electronic Signature) The attending pathologist whose signature appears on this report has reviewed all diagnostic slides and has edited the gross and/or microscopic portion of the report in rendering the final pathologic diagnosis. ---Comment--- It is likely the nodular sclerosis subtype. We concur with the diagnosis issued previously for this specimen. Thank you for the opportunity to be involved in this case. PET scan, I reviewed the images and showed them to the patient: Examination PET/CTSCAN Procedure:Following IV injection of 36-uixhod-4-deoxyglucose (FDG) and a standard uptake period, a non-contrast CT scan followed by a PET scan were acquired along the length of the body from the base of the skull to mid-thighs. The non-contrast CT was used for anatomic localization and photon attenuation correction of the PET scan. Blood glucose level (mg/dL): 94 FDG dose: 9.39 mCi (0.15 mCi/kg to maximum of 18 mCi) Pre-medication: None Clinical History MASS LEFT NECK - SUSP OF LYMPHOMA /STAGING Comparison None Findings Head/neck: There is hypermetabolic adenopathy in the left anterior neck involving levels 2 through 4, including the supraclavicular region. The largest lymph node measures 36 x 25 mm. The right neck is normal. Normal metabolic activity within the head. Chest: There is a small, 4-5 mm hypermetabolic left anterior mediastinal lymph node (axial image number 116). Otherwise normal metabolic activity within the chest. There are small bullous changes at the lung apices bilaterally. There is a small, 3-4 mm noncalcified right lower lobe nodule (axial image number 159). Abdomen/pelvis: Normal metabolic activity in all areas. Skeleton: Normal metabolic activity in all areas. Impression 1. Hypermetabolic adenopathy within the left neck, suspicious for malignancy, with lymphoma being most likely. 2. Small hypermetabolic left anterior mediastinal lymph node, also suspicious for malignant jaci involvement. 3. 3-4 mm noncalcified right lower lobe pulmonary nodule. This is too small to characterize. Attention on follow up. Film and interpretation reviewed by the attending Assessment and Plan: 40-year-old man with early stage Hodgkin's disease diagnosed w/ a left neck biopsy. The string of adenopathy in the left neck is impressive but he also has a small node that is hypermetabolic in the chest giving him stage II disease. I do not have all of his international prognostic criteria but hewould appear to have low-risk early-stage disease on the basis of lack of bulk ( under 10 cm) and his age as well as some other features. He is a smoker and it will be important to assess his pulmonary function tests. He was given encouragement to stop smoking. I did speak with him about therapy. We do have a clinical trial available for early-stage Hodgkin'sdisease. This trial uses an early interim PET scan to adjust therapy. Patient who have achieved a complete remission after 2 cycles of ABVD will go on to complete 4 cycles of ABVD with no consolidation radiation therapy. If the patient still has pet positive disease after 2 cycles of ABVD they will then be switched to an alternative chemotherapy, BEACOP. The patient met with our research nurse, Yessi Stahl. He reviewed the informed consent and was agreeable to participate in the clinical study. The remaining studies required for clinical trial will be ordered. We will try to complete his workup within the next several days and plan to start his first cycle of chemotherapy next week. If he tolerates therapy well and is an appropriate candidate from the research office point of view we willtry to complete his day 14 therapy and subsequent cycles of therapy of ABVD at our. [facility]. I will plan to see the patient next week as we anticipate starting his first cycle of ABVD chemotherapy. * Day Stahl RN - 10/13/2011 12:54 PM EDT .RESEARCH NURSE OFFICE NOTE Documentation of Discussion of Opportunity to Participate in Clinical Research Trial Documentation of Informed Consent to Participate in Clinical Research Trial [id number]: A Phase II Trial of Response-Adapted Chemotherapy Based on Positron Emission Tomography forNon-Bulky Stage I or II Hodgkin Lymphoma Patient, with , seen in clinic with Dr. Domingo, as new patient with recently diagnosed HodgkinLymphoma, Stage IIA. Patient was offered opportunity to participate in study [id number], A Phase II Trial of Response-Adapted Chemotherapy Based on Positron Emission Tomography for Non- Bulky Stage I or II Hodgkin Lymphoma.. Study protocol reviewed with patient and , including description of study purpose, proposed care, treatment, procedures and interventions, and duration of participation including follow-up care. Education regarding medications used in the study provided. Discussed insurance coverage and billing concerns. Potential discomforts, risks and benefits were reviewed. Information regarding the uncertainties, both in terms of benefit as well as risks that are part of participation in this clinical tri al, were reviewed. Discussed confidentiality of patient???s private health information as specified in consent form. Patient informed he may discontinue study involvement at any time. Informed that declining to participate or discontinuing study treatment will not compromise his access to treatment options or care at this institution. Mr. Dickerson provided with opportunity to review consent form with . Provided ample opportunity to ask questions, all of which were answered to his satisfaction. Pt agreed to participate in [id number],and signed Informed Consent for this study. Pt was given copy of the signed informed form, as well as contact information to the clinic and the research office. He signed consent form prior to any study-required procedures or tests were conducted. Plan: Will schedule all remaining Prior to Study tests at [facility], with possible start of active treatment next week or week following. Will provide calendar of proposed appointments after confirmation of eligibility with remaining tests. Pt in full agreement with this, and agrees to call with questions or concerns. documented in this encounter Plan of Treatment Not on file documented as of this encounter Results * PFT Screen (Pulmonary [...] Domingo MD PROCEDURE/MINOR SURG ICAL ORDERABLES * XR chest routine PA & [...] Normal Stevie Domingo MD IMG DX ORDERABLES * HIV (10/16/2011 11:08 AM EDT) Pathologist [facility] HIV 1/2 Ab Negative [facility] Blood specimen (specimen) 10/16/2011 11:08 AM EDT 10/16/2011 11:10 AM EDT Narrative Resulting Agency Comment Spec In Lab Stevie Domingo MD CHEMISTRY ORDERABLES [facility] * Sedimentation rate (10/16/2011 11:08 AM EDT) Pathologist [facility] Sedimentation Rate Automated 3 0 - 15 mm/hr CERNER MILLENNIUM Blood specimen (specimen) 10/16/2011 11:08 AM EDT 10/16/2011 11:10 AM EDT Narrative Resulting Agency Comment Spec In Lab Stevie Domingo MD HEMATOLOGY ORDERABLE S Performing Organization Address City/[facility]/ZIP Co de Phone Number CERNER DARIANENNIUM * Lactate Dehydrogenase (10/16/2011 11:08 AM EDT) Lactate Dehydrogenase 127 110 - 220 unit/L CERNER MILLENNIUM Blood specimen (specimen) 10/16/2011 11:08 AM EDT 10/16/2011 11:10 AM EDT Narrative Resulting Agency Comment Spec In Lab Stevie Domingo MD CHEMISTRY ORDERABLES Performing Organization Address [facility] Co de Phone Number CERNER MILLENNIUM * (ABNORMAL) Comprehensive metabolic panel (non-fasting) (10/16/2011 11:08 AM EDT) Glucose 101 60 - 199 mg/dL CERNER MILLENNIUM Comment:Diabetes: >=200 mg/d L plus symptoms Blood Urea Nitrogen 10 10 - 20 mg/dL CERNER MILLENNIUM Creatinine 0.73(L) 0.80 - 1.50 mg/dL CERNER MILLENNIUM Comment: Please note that the pediatric reference intervals supplied above were not validated at [facility]. Results from pediatric patients should be interpreted [...] Lab Stevie Domingo MD CHEMISTRY ORDERABLES [facility] * CBC (with Diff) (10/16/2011 11:08 AM [...] Diagnosis Hodgkin disease- Primary Hodgkin's disease, unspecified Hodgkin lymphoma- Primary Hodgkin's disease, unspecified Hodgkin disease Hodgkin's disease, unspecified documented in this encounter Care Teams On Air Host Relationship Specialty Start Date End Date Reginald Nieto APRN [address] [place] [address] PCP - General 09/30/11 10/05/13 documented as of this encounter
--- OUTSIDE RECORDS SUMMARY | 2024-01-24 11:04 | XMS_ITS | Encounter Summary ---
Author Organization [facility] Address [address] [place] [id number] Care Team Providers Care Fiber Optic Technician Name Role Phone Unknown, Provider Primary Care Provider Unava ilable Encounter Details Date Type Department Care Team (Late st Contact Info) Description 09/14/[address] [facility] Laboratory Services - [facility] ([facility]) [address] [place], [place] [address] Fernando Biggs MD [address] [place], [place] [id number] Social History Tobacco Use Types Packs/Day Years Used Date Smoking Tobacco: Never Assessed Sex and Gender Information Value Date Recorded Sex Assigned at Not on file Gender Identity Not on file Sexual Orientation Not on file documented as of this encounter Plan of Treatment Not on file documented as of this encounter Procedures Procedure Name Priority Date/Time Associated Diagnosis Comments CYTOPATHOLOGY Routine 09/14/2011 0:00 EDT documented in this encounter Results * CYTOPATHOLOGY (09/14/2011 0:00 EDT) Pathology Report: CYTOPATHOLOGY REPORT Reports generated via electronic interface contain original data; however they are lacking the format of the original report. Caution should be taken when reading/interpreting unformatted reports. Name: ? KING LEE ? Accession #: ? [id number] : ? 1970 (Age: 40) ??M ?Collect Date: ? 09/14/2011 Location: ? [facility] ? Receive Date: ? 09/15/2011 Provider: ? FERNANDO BIGGS MD Copy to: ? CYTOLOGIC DIAGNOSIS: ? Lymph node, left cervical, Zone IV, fine needle aspiration: - Suspicious for lymphoma. ??See comment. ? COMMENT: ? The thinprep slide is cellular with a population of small to intermediate lymphocytes, in addition to a distinct population of large lymphoid cells. ??The large cells have prominent macronucleoli and nuclear contour irregularities, some with binucleation and multinucleation. ??The staining pattern is supports lymphoma, rather than metastatic carcinoma. ??The large cells are CD30 positive with patchy staining for CD3 and CD15. ??The differential diagnosis includes Hodgkin as well as non-Hodgkin lymphoma This case was discussed with Dr. Biggs on 09/17/11 at 9:30 AM, and core biopsy or lymph node excision is to be arranged. Dr. Jay Lee has reviewed this case in consultation and agrees with the above diagnosis. (Dr. Ayala)/mpl ? Immunocytochemical staining was performed on this case to further characterize the lesion. ??Positive and negative controls stained appropriately. Antibody (Clone) ? Result Keratin AE1-AE3 (AE1-AE3, [facility]) ?Negative CD3 (T-cell) (Rabbit Monoclonal (SP7), [facility]) ? Patchy positivity, including some large cells CD20 (B-cell) (L26, [facility]) ?Patchy positivity in smaller lymphoid cells CD15 (LeuM1)(MMA, [facility]) ?Patchy positivity in large cells CD30 (Ki-1) (Tank-H2, [facility]) ?Positive in large cells NOTE: ??One or more of the reagents [...] reagents' ??performance characteristics have been determined by [facility]. ??This laboratory is certified under the Clinical Laboratory Improvement Amendments of 1988 (CLIA-88) as qualified to perform high complexity clinical laboratory testing. ?? Document reviewed and electronically signed by: ? HOLLIE FLOREZ MD Report Date: ??09/18/2011 14:57 By the signature above, the attending physician certifies that he/she has personally conducted a gross and/or microscopic examination of the described specimens and rendered or confirmed the above diagnosis. Specimen Type: ? Lymph Node, Fine Needle Aspiration, Left Zone IV cervical Clinical History: ? Left Zone IV cervical lymphadenopathy in a smoker. ??clinical diagnosis code: ??784.2. Call results to [phone] or fax [phone] ? Gross Description: ? One vial of Cytolyt was received and processed by selective cellular enhancement technique. ? End of Report [facility] 09/14/2011 09/15/2011 15: 58 EDT Fernando Biggs MD PATHOLOGY ORDERABLES [facility] [address] [place] [address] documented in this encounter Visit Diagnoses Not on filedocumented in this encounter Care Teams Fiber Optic Technician Relationship Specialty Start Date End Date Unknown, Provider, PCP - General 09/15/11 10/01/11 documented as of this encounter
--- OUTSIDE RECORDS SUMMARY | 2024-01-24 11:04 | XMS_ITS | Encounter Summary ---
Author Organization [facility] Address [facility] [place] [address] Care Team Providers Care Franchise Sales Representative Name Role Phone Reginald Nieto APRN Primary Care Provide r Reason for Visit * Reason Comments Follow-up Encounter Details Date Type Department Care Team (Late st Contact Info) Description 10/06/2011 10:00 AM EDT Follow-Up [address] [place] [address] Josh Gonzalez MD [facility] HEMATOLOGY/[place] [address] Lymphoma (Primary Dx) Social History Tobacco Use Types Packs/Day Years Used Date Smoking Tobacco: Never Assessed Sex and Gender Information Value Date Recorded Sex Assigned at Not on file Gender Identity Not on file Sexual Orientation Not on file documented as of this encounter Progress Notes * Josh Gonzalez MD - 10/06/2011 10:58 AM EDT Problem list #1 lymphoma A biopsy performed and final path pending B PET scan shows stage IIA disease. 36 x 25 mm node in the left neck +4 x 5 mm node in the anteriormediastinum on the left side #2 smoker Medication list Ibuprofen, coenzyme Q, [...] does not have children. He works at [employer] in [place]. Note that he does smoke. Labs White count 7.3 hemoglobin 14 platelets 182 Creatinine 0.79 BUN 14 alkaline phosphatase 86 ALT 29 AST 18 Albumin 3.8 total protein 6.3 calcium 8.6 TSH 0.4 Assessment We now have his staging complete and it shows it to be a to a lymphoma however it is very early as the node in the anterior left mediastinum is very small only 5 x 4 mm. We do not have the final pathbut is quite likely he is going to require radiation therapy. If this is Hodgkin's we would still want to do a combination of chemotherapy and radiation, it was a low-grade lymphoma I think radiationwould be in his best interest, gives a diffuse large cell lymphoma its debatable as to whether he should be treated with radiation therapy or chemotherapy or combination but I think it would be prudent to go ahead and make the arrangements now for radiation therapy consult. We spent quite a bit of time today discussing treatment but without the final path that discussion had to be somewhat vague. Hopefully this is Hodgkin's disease in which case we would treat this with3 cycles of ABVD followed by radiation therapy. An argument could be made for radiation therapy alone. If for low-grade I think it is best interest to treat this with radiation alone as I think this can be caught in one field. Plan #1 radiation therapy consult apparently this needs to be done in [place] since they don't radiate the neck in [facility] #2 return on and hopefully we'll have the final pathology This note was created using [employer] voice recognition software. It was reviewed for major content. However, there may be multiple small discrepancies and errors due to the voice recognition aspects of the software. documented in this encounter Plan of Treatment Not on file documented as of this encounter Visit Diagnoses Diagnosis Lymphoma- Primary Other malignant lymphomas, unspecified site, extranodal and solid organ sites documented in this encounter Care Teams Franchise Sales Representative Relationship Specialty Start Date End Date Reginald Nieto APRN [address] [place] [address] PCP - General 09/30/11 10/05/13 documented as of this encounter
--- OUTSIDE RECORDS SUMMARY | 2024-01-24 11:04 | XMS_ITS | Encounter Summary ---
Author Organization [facility] Address [facility] [place] [address] Care Team Providers Care Band Nailer Name Role Phone Unknown Primary Care Provider Unavailabl e Reason for Visit * Reason Comments Follow-up Encounter Details Date Type Department Care Team (Late st Contact Info) Description 09/24/2011 2:00 PM EDT Office Visit [facility] [address] [facility] [place] [address] Josh Gonzalez MD [facility] HEMATOLOGY/[place] [address] Lymphoma (Primary Dx) Social History Tobacco Use Types Packs/Day Years Used Date Smoking Tobacco: Never Assessed Sex and Gender Information Value Date Recorded Sex Assigned at Not on file Gender Identity Not on file Sexual Orientation Not on file documented as of this encounter Progress Notes * Josh Gonzalez MD - 09/24/2011 2:51 PM EDT Problem list #1 lymphoma, at this point excisional biopsy and PET scan are pending #2 smoker Medication list Ibuprofen, coenzyme Q, Klonopin and some other vitamins History of present illness This is a [...] skin rash or change in mental status. Review of systems Constitutional Positive for increasing [...] does not have children. He works at [employer] in [place]. Note that he does smoke. Labs White count 7.3 hemoglobin 14 platelets 182 Creatinine 0.79 BUN 14 alkaline phosphatase 86 ALT 29 AST 18 Albumin 3.8 total protein 6.3 calcium 8.6 TSH 0.4 Assessment At this point we do not have a diagnosis other than lymphoma, this could be Hodgkin's or non-Hodgkin's. Given its presentation of a rapidly enlarging neck mass does not appear to be a low-grade lymphoma at this point, so is probably either diffuse large B-cell lymphoma or Hodgkin's disease. I do not think this is lymphoblastic or Burkitt's. We spent quite a bit of time today discussing what lymphoma is, various possibilities for treatment, the fact that this may be curable, that it may be localized and treatable with a combination of chemotherapy and radiation but at this time we simply do not have the staging or the diagnosis. Plan #1 PET/CT hopefully the next few days #2 Dr. Biggs will do excisional biopsy next #3 see me back Wednesday the hopefully the diagnosis and staging complete This note was created using [employer] voice recognition software. It was reviewed for major content. However, there may be multiple small discrepancies and errors due to the voice recognition aspects of the software. documented in this encounter Plan of Treatment Not on file documented as of this encounter Visit Diagnoses Diagnosis Lymphoma- Primary Other malignant lymphomas, unspecified site, extranodal and solid organ sites documented in this encounter Care Teams Band Nailer Relationship Specialty Start Date End Date Unknown None PCP - General 09/21/11 09/29/11 documented as of this encounter
--- OUTSIDE RECORDS SUMMARY | 2024-01-24 11:04 | XMS_ITS | Encounter Summary ---
Author Organization [facility] Address [address] [place] [address] Care Team Providers Care Type Proof Reproducer Name Role Phone Reginald Nieto APRN Primary Care Provider Josh Hernandez MD Primary Care Provider [phone] Encounter Details Date Type Department Care Team (Late st Contact Info) Description 04/05/2020 Lab Requisition [facility] Pathology & Laboratory Medicine - [address] [id number] Outr Resulting Lab, Provider Social History Tobacco Use Types Packs/Day [...] RNA BY PCR Routine 04/04/2020 7:30 EST documented in this encounter Results * HEPATITIS C AB W REFLEX TO HCV RNA BY PCR (04/04/2020 7:30 EST) Hep C Antibody Negative Negative 04/08/2020 10:05 EST [facility] Blood VENOUS BLOOD / Unknown 04/04/2020 7:30 EST 04/05/2020 17:27 EST Provider Outr Resulting Lab CHEMISTRY & BLOOD GAS ORDERABLES [facility] [address] [place] [address] documented in this encounter Visit Diagnoses Not on filedocumented in this encounter Care Teams Type Proof Reproducer Relationship Specialty Start Date End Date Reginald Nieto APRN [address] [facility] [address] [place] [address] PCP - General 10/02/11 05/19/21 Josh Hernandez MD [facility] [place] [address] PCP - General 05/20/21 documented as of this encounter
--- OUTSIDE RECORDS SUMMARY | 2024-01-24 11:04 | XMS_ITS | Encounter Summary ---
Author Organization [facility] Address [address] [place] [address] Care Team Providers Care Commercial Real Estate Paralegal Name Role Phone Unknown, Provider Primary Care Provider Unava ilable Encounter Details Date Type Department Care Team (Latest Contact Info) Description 10/01/2011 14:10 EDT - 10/01/2011 14:18 EDT Hospital Encounter [address] [address] Fernando Biggs MD [address] [place] [id number] Discharge Disposition: Home or Self Care Social History Tobacco Use Types Packs/Day Years Used Date Smoking Tobacco: Never Assessed Sex and Gender Information Value Date Recorded Sex Assigned at Not on file Gender Identity Not on file Sexual Orientation Not on file documented as of this encounter Discharge Disposition Disposition Code Departure Means Destination Home or Self Care documented in this encounter Plan of Treatment Not on file documented as of this encounter Visit Diagnoses Not on filedocumented in this encounter Care Teams Commercial Real Estate Paralegal Relationship Specialty Start Date End Date Unknown, ProviderMD PCP - General 09/15/11 10/01/11 documented as of this encounter
--- OUTSIDE RECORDS SUMMARY | 2024-01-24 11:04 | XMS_ITS | Clinical Summary ---
Author Organization [facility] Address [address] [place] [address] Care Team Providers Care Communications Field Technician Name Role Phone Josh Hernandez MD Primary Care Provider [phone] Social History Tobacco Use Types Packs/Day Years Used Date Smoking Tobacco: Never Assessed Sex and Gender Information Value Date Recorded Sex Assigned at Not on file Gender Identity Not on file Sexual Orientation Not on file Plan of Treatment Health Maintenance Due Date Last Done Comments Hepatitis B Vaccine (1 of 3 - 19+ 3-dose series) 11/12 COVID-19 Vaccine ( season) 2022 Hepatitis C Screen Completed 04/04/2020 Procedures Procedure Name Priority Date/Time Associated Diagnosis Comments HEPATITIS C AB W REFLEX TO HCV RNA BY PCR Routine 04/04/2020 7:30 EST from Last 3 Months or Most Recently Relevant to Health Maintenance Results * HEPATITIS C AB W REFLEX TO HCV RNA BY PCR (04/04/2020 7:30 EST) Hep C Antibody Negative Negative 04/08/2020 10:05 EST [facility] Blood VENOUS BLOOD / Unknown 04/04/2020 7:30 EST 04/05/2020 17:27 EST Provider Outr Resulting Lab CHEMISTRY & BLOOD GAS ORDERABLES [facility] [address] [place] [address] from Last 3 Months or Most Recently Relevant to Health Maintenance Care Teams Communications Field Technician Relationship Specialty Start Date End Date Josh Hernandez MD [address] [place] [address] PCP - General 05/20/21
--- OUTSIDE RECORDS SUMMARY | 2024-01-24 11:04 | XMS_ITS | Encounter Summary ---
Author Organization [facility] Address [address] [place] [address] Care Team Providers Care [employer] Principal Name Role Phone Josh Hernandez MD Primary Care Provider [phone] Encounter Details Date Type Department Care Team (Late st Contact Info) Description 06/06/2021 Lab Requisition [facility] Pathology & Laboratory Medicine - [facility] [address] [place] [address] Brittany Chinchilla, DO [address] [place], [place] [id number] Encounter for screening for malignant neoplasm of colon Social History Tobacco Use Types Packs/Day Years Used Date Smoking Tobacco: Never Assessed Sex and Gender Information Value Date Recorded Sex Assigned at Not on file Gender Identity Not on file Sexual Orientation Not on file documented as of this encounter Plan of Treatment Not on file documented as of this encounter Procedures Procedure Name Priority Date/Time Associated Diagnosis Comments SURGICAL PATHOLOGY Today 06/06/2021 12 :30 EDT Encounter for screening for malignant neoplasm of colon documented in this encounter Results * SURGICAL PATHOLOGY (06/06/2021 12:30 EDT) Note to Patient The following pathology results have been interpreted by your pathologist and may be available to you before your health provider has had the opportunity to review them. Please allow time for your provider to receive these results and explore management options, if applicable. 06/10/2021 11:38 EDT [facility] Final Diagnosis A. COLON, 80CM, BIOPSY: - Sessile serrated adenoma 06/10/2021 11:38 [facility] Attestation By the signature below, the attending physician certifies that they have 1) personally conducted a gross and/or microscopic examination of the described specimen(s), and/or personally interpreted the results of laboratory testing of the described specimen(s), and 2) personally rendered or confirmed the above diagnosis. 06/10/2021 11:38 [facility] at 1138 Clinical History Screening for colon cancer 06/10/2021 11:38 [facility] Gross Description A. Received in formalin labelled with proper patient identification (initials H, D) and colon polyp @ 80 cm are three pale hudson-white tissues (0.4 x 0.3 x 0.1 cm to 0.3 x 0.2 x 0.2 cm). Entirely submitted in A1. Moise Jesus 06/08/2021 9:05 06/10/2021 11:38 [facility] Performing Lab [facility] 06/10/2021 11:38 [facility] Scanned Images 06/10/2021 11:38 [facility] Tissue ENTIRE COLON / Unknown 06/06/2021 12:30 EDT 06/06/2021 22:32 EDT Brittany Chinchilla DO PATHOLOGY ORDERABLES [facility] [address] [place] [address] documented in this encounter Visit Diagnoses Diagnosis Encounter for screening for malignant neoplasm of colon Special screening for malignant neoplasms, colon documented in this encounter Care Teams [employer] Principal Relationship Specialty Start Date End Date Josh Hernandez MD [facility] [place] [address] PCP - General 05/20/21 documented as of this encounter
--- OUTSIDE RECORDS SUMMARY | 2024-01-24 11:04 | XMS_ITS | Encounter Summary ---
Author Organization [facility] Address [facility] [place] [address] Care Team Providers Care Side Laster Tack Name Role Phone Reginald Nieto APRN Primary Care Provide r Encounter Details Date Type Department Care Team (Latest Contact Info) Description 10/02/2011 8:06 AM EDT - 10/02/2011 11:59 PM EDT Hospital Encounter [place] [address] CLINIC, Josh Figueroa MD [facility] HEMATOLOGY/[place] [address] Discharge Disposition: Home Social History Tobacco Use [...] CT SKULL BASE TO MID-THIGH ([facility]) Routine 10/02/2011 9:54 AM EDT POCT GLUCOSE Routine 10/02/2011 8:29 AM EDT documented in this encounter Results * PET-CT SKULL BASE TO MID THIGH (10/02/2011 9:54 AM EDT) Anatomical Region Laterality Modality Other 10/02/2011 9:54 AM EDT Narrative 10/02/2011 5:10 PM EDT Examination PET/CTSCAN Procedure:Following IV injection of 69-crkhqx-5-deoxyglucose (FDG) and a standard uptake period, a [...] OF LYMPHOMA /STAGING Comparison None Findings Head/neck: ??There is hypermetabolic adenopathy in the left anterior neck involving levels 2 through 4, including the supraclavicular region. ??The largest lymph node measures 36 x 25 mm. ??The right neck is normal. ??Normal metabolic activity within the head. Chest: There is a small, 4-5 mm hypermetabolic left anterior mediastinal lymph node (axial image number 116). ??Otherwise normal metabolic activity within the chest. ??There are small bullous changes at the lung apices bilaterally. There is a small, 3-4 mm noncalcified right lower lobe nodule (axial image number 159). Abdomen/pelvis: ??Normal metabolic activity in all areas. Skeleton: ??Normal metabolic activity in all areas. Impression 1. Hypermetabolic adenopathy within the left neck, suspicious for malignancy, with lymphoma being most likely. 2. Small hypermetabolic left anterior mediastinal lymph node, also suspicious for malignant jaci involvement. 3. 3-4 mm noncalcified right lower lobe pulmonary nodule. ??This is too small to characterize. ??Attention on follow up. Film and interpretation reviewed by the attending Procedure Note Stevie Perdue MD - 10/02/2011 Examination PET/CTSCAN Procedure:Following IV injection of 56-fvrclq-0-deoxyglucose (FDG) and a standard uptake period, a non-contrast CT scan followed by a PET scan were acquired along the length of the body from the base of the skull tomid-thighs. The non-contrast CT was used for anatomic localization and photonattenuation correction of the PET scan. Blood glucose [...] a small, 4-5 mm hypermetabolic left anterior mediastinallymph node (axial image number 116). Otherwise normal metabolic activity withinthe chest. There are small bullous changes at the lung apices bilaterally.There is a small, 3-4 mm noncalcified right lower lobe nodule (axial imagenumber 159). Abdomen/pelvis: Normal metabolic activity in all areas. Skeleton: Normal metabolic activity in all areas. Impression 1. Hypermetabolic adenopathy within the left neck, suspicious formalignancy, with lymphoma being most likely. 2. Small hypermetabolic left anterior mediastinal lymph node, alsosuspicious for malignant jaci involvement. 3. 3-4 mm noncalcified right lower lobe pulmonary nodule. This is toosmall to characterize. Attention on follow up. Film and interpretation reviewed by the attending Josh Gonzalez MD IMG PET ORDERABLES * POCT GLUCOSE LAB USE ONLY (10/02/2011 8:29 AM EDT) Glucose, POC 94 60 - 199 mg/dL [facility] Comment: Supplemental ranges: <110 mg/dL before meals <200 mg/dL all other times of the day Blood specimen (specimen) 10/02/2011 8:29 AM EDT 10/02/2011 8:29 AM EDT Josh Gonzalez MD POINT OF CARE TEST O RDERABLES [facility] documented in this encounter Visit Diagnoses Not on filedocumented in this encounter Administered Medications Inactive Administered Medications - up to 3 most recent administrations Medication Order MAR Action Action Date Dose Rate Site iohexol (OMNIPAQUE) injection 50 mL 50 mL, Oral, ONCE, 1 dose, On Wed10/02/11 at 1000, Routine Given 10/02/2011 10:00 AM EDT 50 mLs documented in this encounter Care Teams Side Laster Tack Relationship Specialty Start Date End Date Reginald Nieto APRN [address] [place] [address] PCP - General 09/30/11 10/05/13 documented as of this encounter
--- OUTSIDE RECORDS SUMMARY | 2024-01-24 11:04 | XMS_ITS | Encounter Summary ---
Author Organization [facility] [place] [address] Care Team Providers Care Jig Boring Machine Set Up Operator Name Role Phone Reginald Nieto APRN Primary Care Provide r Encounter Details Date Type Department Care Team (Late st Contact Info) Description 10/12/2011 External Results [place] [address] Provider, Scanning Social History Tobacco Use Types Packs/Day Years Used Date Smoking Tobacco: Never Assessed Sex and Gender Information Value Date Recorded Sex Assigned at Not on file Gender Identity Not on file Sexual Orientation Not on file documented as of this encounter Plan of Treatment Not on file documented as of this encounter Procedures Procedure Name Priority Date/Time Associated Diagnosis Comments SURGICAL PATHOLOGY SCAN Routine 10/12/2011 documented in this encounter Results * Scan Doc: Surgical Pathology (10/12/2011) Aracely Arreola MD MEDIA MGR SCAN EXT O RDR/RSLT documented in this encounter Visit Diagnoses Not on filedocumented in this encounter Care Teams Jig Boring Machine Set Up Operator Relationship Specialty Start Date End Date Reginald Nieto APRN [address] [place] [address] PCP - General 09/30/11 10/05/13 documented as of this encounter
--- OUTSIDE RECORDS SUMMARY | 2024-01-24 11:04 | XMS_ITS | Encounter Summary ---
Author Organization [facility] Address [address] [place] [address] Care Team Providers Care Underground Bolting Machine Operator Name Role Phone Josh Hernandez MD Primary Care Provider [phone] Encounter Details Date Type Department Care Team (Late st Contact Info) Description 09/16/2022 Lab Requisition [facility] Pathology & Laboratory Medicine - [facility] [address] [place], [place] [id number] Outr Resulting Lab, Provider Social History Tobacco [...] Name Priority Date/Time Associated Diagnosis Comments HIV 1/2 ANTIGEN AND ANTIBODY, 4TH GENERATION Routine 09/15/2022 15:50 EDT documented in this encounter Results * HIV 1/2 ANTIGEN AND ANTIBODY, 4TH GENERATION (09/15/2022 15:50 EDT) HIV 1 and 2 Antibody/p24 Antigen, 4th Generation Negative Negative 09/17/2022 10:35 EDT [facility] Comment:If acute HIV-1 infec tion is suspected in a high risk patient, submit plasma specimen for HIV-1 RNA quantitation test. Blood VENOUS BLOOD / Unknown 09/15/2022 15:50 EDT 09/16/2022 17:06 EDT Narrative [facility] - 09/17/2022 10:35 EDT Fourth Generation assay performed on the Siemens Centaur XPT. Provider Outr Resulting Lab IMMUNOLOGY A ND SEROLOGY ORDERABLES [facility] [address] [place] [address] documented in this encounter Visit Diagnoses Not on filedocumented in this encounter Care Teams Underground Bolting Machine Operator Relationship Specialty Start Date End Date Josh Hernandez MD [address] [place], [place] [id number] PCP - General 05/20/21 documented as of this encounter
[2024-01-24 14:32] LABS: Abs Immature Grans 0.01 10^3/uL (0.0-0.06); Absolute Basophil Count 0.02 10^3/uL (0.0-0.2); Absolute Eosinophil Count 0.14 10^3/uL (0.0-0.7); Absolute Lymphocyte Count 1.48 10^3/uL (1.2-3.4); Absolute Monocyte Count 0.39 10^3/uL (0.1-0.8); Absolute Neutrophil Count 4.75 10^3/uL (1.2-6.7); Basophils % 0.3 %; Eosinophils % 2.1 %; HCT 47.8 % (40.0-50.0); Immature Grans % 0.1 %; Lymphocytes % 21.8 %; MCHC 33.5 % (32.0-36.0); MCV 90 fL (80-95); Monocytes % 5.7 %; Platelet Count 197 10^3/uL (130-400); RBC 5.34 10^6/uL (4.36-5.78); RDW 12.5 % (11.8-14.1); WBC 6.79 10^3/uL (4.4-10.8)
[2024-01-24 15:09] LABS: ALT 24 U/L (16-63); AST 20 U/L (15-37); Alkaline Phosphatase 98 U/L (46-116); Anion Gap 5.4 mmol/L (3-11); BUN 14 mg/dL (7-18); Bilirubin, Total 0.42 mg/dL (0.2-1.0); CO2 31.6 mmol/L (21.0-32.0); CREATININE 0.9 mg/dL (0.70-1.30); Chloride 107 mmol/L (98-107); Estimated GFR 102.12 (mL/min/1.73m2); Glucose 103 mg/dL (74-106); Potassium 4.9 mmol/L (3.5-5.1); Sodium 144 mmol/L (136-145); TSH 0.85 uIU/mL (0.36-3.74); Total Protein 6.9 g/dL (6.4-8.2); Vitamin D 25 Total 49.2 ng/mL (30-100)
== END 2024-01-24 10:58 | disposition home or self-care (01) ==
LOC: NCHCN 10:57
PROVIDERS: PCP Family Medicine; Visit Provider Student in an Organized Health Care Education/Training Program
DX: R53.83 Other fatigue (principal); E55.9 Vitamin D deficiency, unspecified
CPT/HCPCS: 80053; 82306; 84443; 85025

== ENCOUNTER 2025-03-20 13:05 | Outpatient (REF) | payer OTHER, SELFPAY ==
[2025-03-20 15:56] LABS: Abs Immature Grans 0.02 10^3/uL (0.0-0.06); HCT 46.9 % (40.0-50.0); HGB 15.4 g/dL (13.5-17.5); Immature Grans % 0.3 %; MCH 30.1 pg (27.0-33.0); MCHC 32.8 % (32.0-36.0); MCV 92 fL (80-95); MPV 11.1 fL (8.0-11.0); Platelet Count 207 10^3/uL (130-400); RBC 5.12 10^6/uL (4.36-5.78); RDW 12.4 % (11.8-14.1); RDW-SD 41.8 fL; WBC 7.00 10^3/uL (4.4-10.8)
[2025-03-20 16:10] LABS: ALT 34 U/L (10-49); AST 19 U/L (<34); Albumin 4.5 g/dL (3.2-5.0); Alkaline Phosphatase 94 U/L (46-116); Anion Gap 7.6 mmol/L (3-11); BUN 13 mg/dL (9-23); Bilirubin, Total 0.2 mg/dL (0.2-1.2); CO2 28.4 mmol/L (20.0-31.0); Calcium 8.6 mg/dL (8.3-10.6); Chloride 108 mmol/L (98-107); Cholesterol 238 mg/dL (<200); Glucose 88 mg/dL (74-106); HDL Cholesterol 46 mg/dL (>or=40); Potassium 4.2 mmol/L (3.5-5.1); Sodium 144 mmol/L (136-145); Total Protein 6.8 g/dL (5.7-8.2)
== END 2025-03-20 13:06 | disposition home or self-care (01) ==
LOC: NCHCN 13:05
PROVIDERS: PCP Family Medicine; Visit Provider Student in an Organized Health Care Education/Training Program
DX: Z13.220 Encounter for screening for lipoid disorders (principal); F33.9 Major depressive disorder, recurrent, unspecified; Z13.228 Encounter for screening for other metabolic disorders
CPT/HCPCS: 80053; 80061; 85025